=== PATIENT | female | born 1965 | race African-American/Black ===

== ENCOUNTER 2017-11-18 15:27 | Emergency (ER) | payer MEDICAID ==
[2014-10-05 15:43] VITALS: BMI 23.6
[~2017-11-18 15:27] MED LIST: BAYER CHEWABLE81 MG PO; DEXILANT60 MG PO; HYDROCODON-ACE1 EAC7 PO; NORVASC5 MG PO
[2017-11-18 15:58] LABS: BASOPHILS 0.1 % (0-2); EOSINOPHILS 1.3 % (0-7); HEMATOCRIT 43.2 % (36.0-48.0); HEMOGLOBIN 14.8 g/dL (12-16); IMMATURE GRANULOCYTES 0.3 % (0-5); LYMPHOCYTES 23.1 % (15-50); MCHC 34.3 g/dL (31.0-37.0); MCV 105.1 fL (80.0-100.0); MEAN PLATELET VOLUME 10.2 fL (7.4-10.4); MONOCYTES 6.5 % (2-11); NEUTROPHILS 68.7 % (40-80); PLATELET COUNT 236 10x3/uL (130-400); RBC 4.11 10x6/uL (4.00-5.40); RDW 13.1 % (11.5-14.5); WBC 7.9 10x3/uL (4.8-10.8)
[2017-11-18 16:22] LABS: APPEARANCE CLEAR (CLEAR); COLOR YELLOW (YELLOW)
[2017-11-18 16:23] LABS: BILIRUBIN NEGATIVE (NEGATIVE); GLUCOSE NEGATIVE (NEGATIVE); KETONE SMALL mg/dL (NEGATIVE); NITRITE NEGATIVE (NEGATIVE); PROTEIN NEGATIVE (NEGATIVE); UROBILINOGEN NORMAL (NORMAL)
[2017-11-18 16:24] LABS: ALBUMIN 3.7 g/dL (3.4-5.0); ALKALINE PHOSPHATASE 90 U/L (46-116); ALT (SGPT) 525 U/L (10-68); AMYLASE - SERUM 104 U/L (25-115); BILIRUBIN - TOTAL 0.93 mg/dL (0.2-1.3); CALC OSMOLALITY 281 mosm/kg (275-300); CARBON DIOXIDE 24.1 mmol/L (21.0-32.0); CHLORIDE - SERUM 103 mmol/L (98-107); CREATININE - SERUM 0.7 mg/dL (0.6-1.3); GLUCOSE 92 mg/dL (74-106); LIPASE 153 U/L (73-393); POTASSIUM - SERUM 3.8 mmol/L (3.5-5.1); PROTEIN - SERUM 8.5 g/dL (6.4-8.2); SODIUM 142 mmol/L (136-145); UREA NITROGEN 11 mg/dL (7-18); eGFR NON AFRICAN AMERICAN > 90 mL/min (90-120)
== END 2017-11-18 19:45 | disposition home or self-care (01) ==
LOC: D.ER 15:27
PROVIDERS: Family Medicine
DX: R10.84 Generalized abdominal pain (principal); R11.2 Nausea with vomiting, unspecified; Z85.028 Personal history of other malignant neoplasm of stomach

== ENCOUNTER 2018-01-19 21:04 | Emergency (ER) | payer MEDICAID ==
[2014-10-05 15:43] VITALS: BMI 23.6
[2018-01-19 23:29] LABS: HEMATOCRIT 38.2 % (36.0-48.0); HEMOGLOBIN 13.6 g/dL (12-16); LYMPHOCYTES 45.2 % (15-50); MCH 35.8 pg (26.0-34.0); MCHC 35.6 g/dL (31.0-37.0); MCV 100.5 fL (80.0-100.0); MEAN PLATELET VOLUME 9.5 fL (7.4-10.4); NEUTROPHILS 45.3 % (40-80); PLATELET COUNT 255 10x3/uL (130-400); RDW 12.6 % (11.5-14.5); WBC 5.4 10x3/uL (4.8-10.8)
[2018-01-19 23:38] LABS: INR 0.88 (0.85-1.17); PROTIME 11.6 SECONDS (11.6-15.0)
[2018-01-19 23:43] LABS: ALBUMIN 2.9 g/dL (3.4-5.0); ALKALINE PHOSPHATASE 82 U/L (46-116); ALT (SGPT) 58 U/L (10-68); AMYLASE - SERUM 75 U/L (25-115); BILIRUBIN - TOTAL 0.39 mg/dL (0.2-1.3); CALC OSMOLALITY 283 mosm/kg (275-300); CALCIUM 8.5 mg/dL (8.5-10.1); CARBON DIOXIDE 24.8 mmol/L (21.0-32.0); CHLORIDE - SERUM 106 mmol/L (98-107); CREATININE - SERUM 0.6 mg/dL (0.6-1.3); GLUCOSE 99 mg/dL (74-106); LIPASE 125 U/L (73-393); POTASSIUM - SERUM 4.3 mmol/L (3.5-5.1); PROTEIN - SERUM 6.7 g/dL (6.4-8.2); SODIUM 143 mmol/L (136-145); UREA NITROGEN 9 mg/dL (7-18); eGFR NON AFRICAN AMERICAN > 90 mL/min (90-120)
== END 2018-01-20 02:08 | disposition home or self-care (01) ==
LOC: D.ER 21:04
PROVIDERS: Family Medicine
DX: S30.1XXA Contusion of abdominal wall, initial encounter (principal); Y04.2XXA Assault by strike against or bumped into by another person, initial encounter; Y93.89 Activity, other specified; Y92.830 Public park as the place of occurrence of the external cause

== ENCOUNTER 2018-11-11 23:48 | Inpatient (IN) | payer MEDICAID ==
[~2018-11-11] VITALS: Ht 142.2 cm; Wt 52.2 kg
[2018-11-12 00:40] LABS: BASOPHILS 0.4 % (0-2); EOSINOPHILS 0.2 % (0-7); HEMATOCRIT 40.5 % (36.0-48.0); HEMOGLOBIN 13.9 g/dL (12-16); IMMATURE GRANULOCYTES 0.4 % (0-5); LYMPHOCYTES 21.8 % (15-50); MCH 36.2 pg (26.0-34.0); MCHC 34.3 g/dL (31.0-37.0); MCV 105.5 fL (80.0-100.0); MEAN PLATELET VOLUME 10.1 fL (7.4-10.4); MONOCYTES 9.9 % (2-11); NEUTROPHILS 67.3 % (40-80); PLATELET COUNT 235 10x3/uL (130-400); RBC 3.84 10x6/uL (4.00-5.40); RDW 12.6 % (11.5-14.5); WBC 5.3 10x3/uL (4.8-10.8)
[2018-11-12 01:04] LABS: APPEARANCE CLEAR (CLEAR); BILIRUBIN NEGATIVE (NEGATIVE); COLOR DK YELLOW (YELLOW); GLUCOSE NEGATIVE (NEGATIVE); KETONE NEGATIVE (NEGATIVE); NITRITE NEGATIVE (NEGATIVE); PROTEIN NEGATIVE (NEGATIVE)
[2018-11-12 01:18] LABS: ALKALINE PHOSPHATASE 148 U/L (46-116); ALT (SGPT) 302 U/L (10-68); AMYLASE - SERUM 195 U/L (25-115); BILIRUBIN - TOTAL 0.47 mg/dL (0.2-1.3); CALC OSMOLALITY 279 mosm/kg (275-300); CALCIUM 8.4 mg/dL (8.5-10.1); CARBON DIOXIDE 23.7 mmol/L (21.0-32.0); CHLORIDE - SERUM 104 mmol/L (98-107); CREATININE - SERUM 0.6 mg/dL (0.6-1.3); GLUCOSE 126 mg/dL (74-106); LIPASE 2135 U/L (73-393); POTASSIUM - SERUM 3.7 mmol/L (3.5-5.1); PROTEIN - SERUM 7.3 g/dL (6.4-8.2); SODIUM 140 mmol/L (136-145); UREA NITROGEN 9 mg/dL (7-18); eGFR NON AFRICAN AMERICAN > 90 mL/min (90-120)
--- NOTE | 2018-11-12 02:33 | NUR ---
REC'D FROM ER DEPT PER WC TO ROOM 2218 A 52 Y/O BLACK FEMALE PER SERVICES DR. SAENZ.DX ABDOMINAL PAIN/PANCREATITIS. NKDA. IV PATENT RT AC OF NS AT 200CC'S/HR. UP AD SERGEI VOIDS IN BR. ALERT ORIENTED X3 HX ETOH ABUSE/HYPERTENSION.
[2018-11-12 03:01] VITALS: BP 165/104; BMI 25.8
[2018-11-12 03:46] VITALS: BP 165/104
--- NOTE | 2018-11-12 07:30 | NUR ---
PT REPORT RECIEVED AND CARE ASSUMED CALL LIGHT IN REACH PT IS AWAKE AND ALERT ORIENTED X 3 LUNGS CLEAR. BSA X 4 QUADS HAS ABDOMINAL PAIN PIV PATENT TO NS PER ORDER UP AD SERGEI
[2018-11-12 10:08] VITALS: BP 105/94
[2018-11-12 10:53] VITALS: Ht 142.2 cm; Wt 52.2 kg
--- NOTE | 2018-11-12 11:30 | NUR ---
PT CO PAIN GIVEN MORPHINE PER ORDER FOR PAIN CONTROL.
[2018-11-12 13:37] VITALS: BP 147/88
--- NOTE | 2018-11-12 15:56 | MORECARE ---
CASE MANAGEMENT DISCHARGE SUMMARY PATIENT: DIAMOND VALLE UNIT: [id number] ADM DATE: 11/12/18 AGE: 52 : 61 SEX: F ROOM/BED: D.2218 AUTHOR: MARC,DOC PHYSICIAN: REFERRING PHYSICIAN: LELAND SAENZ MD DATE OF SERVICE: 11/12/18 Discharge Plan Patient Name: DIAMOND VALLE Facility: [facility]:[place] : 1965 Planned Disposition: Home Anticipated Discharge Date: Discharge Date: Expected LOS: Initial Reviewer: [email or web address] Initial Review Date: 11/12/2018 Generated: 11/12/18 4:56 pm Comments DCP- Discharge Planning Updated by [email or web address]: Susi Leo on 11/12/18 2:[address] Patient Name: DIAMOND VALLE Admission Status: ER Accout number: [id number] Admission Date: 11-12-2018 : 1965 Admission Diagnosis: Attending: LELAND SAENZ Current LOS: 1 Anticipated DC Date: Planned Disposition: Home Primary Insurance: MEDICAID [place] Discharge Planning Comments: CM met with patient to complete initial dc planning assessment. CM educated patient on the CM role and verbal consent given by patient to complete assessment. Patient lives at home with her boyfriend and son. At discharge patient plans to return home and feels this is a safe discharge. CM discussed availability of home health, rehab services, and medical equipment. Patient denied known discharge needs at this time. CM will continue to follow and will assist as needed with dc plans/needs. Tar Distributor Operator: Susi Leo DCPIA - Discharge Planning Initial Assessment Updated by [email or web address]: Susi Leo on 11/12/18 3:52 pm * Is the patient Alert and Oriented? Yes * How many steps to enter\exit or inside your home? * PCP CAN'T REMEMBER * Pharmacy [facility] * Preadmission Environment Home with Family * ADLs Independent * Equipment None * List name and contact numbers for known caregivers / representatives who currently or will assist patient after discharge: VARUN [phone] * Verbal permission to speak to the caregivers and representatives has been obtained from the patient. Yes * Community resources currently utilized None * Additional services required to return to the preadmission environment? No * Can the patient safely return to the preadmission environment? Yes * Has this patient been hospitalized within the prior 30 days at any hospital? No Patient Name: DIAMOND VALLE Page 11776 at 1556 All edits/amendments must be made on the electronic document DICTATION DATE: 11/12/181555 TRANSITION SPECIALIST: KATHY 11/12/181555 RPT#: [id number] DC DATE: STATUS: ADM IN [facility] [address] [place] [address] END OF REPORT
[2018-11-12 17:26] VITALS: BP 155/85
--- NOTE | 2018-11-12 18:10 | NUR ---
PT HAD MORPHINE FOR PAIN CONTROL HAS BEEN EFFECITVE AT THIS TIME
--- NOTE | 2018-11-12 19:00 | NUR ---
REPORT RECEIVED AND CARE OF PT ASSUMED. PT AMBULATING IN THE [facility] AT THIS TIME. IV IN RIGHT AC PATENT WITH MVI INFUSING. WILL MONITOR FOR NEEDS.
[2018-11-12 20:37] VITALS: BP 159/85
--- NOTE | 2018-11-12 20:50 | NUR ---
HS MEDICATIONS GIVEN. WILL CONTINUE TO MONITOR FOR NEEDS.
--- NOTE | 2018-11-12 21:49 | NUR ---
GAVE MORPHINE IVP PER REQUEST FOR PAIN. WILL MONITOR FOR EFFECTIVENESS.
[2018-11-13 03:52] LABS: BASOPHILS 0.6 % (0-2); EOSINOPHILS 2.7 % (0-7); HEMATOCRIT 38.6 % (36.0-48.0); HEMOGLOBIN 13.2 g/dL (12-16); LYMPHOCYTES 25.5 % (15-50); MCH 36.1 pg (26.0-34.0); MCHC 34.2 g/dL (31.0-37.0); MCV 105.5 fL (80.0-100.0); MEAN PLATELET VOLUME 10.4 fL (7.4-10.4); MONOCYTES 9.1 % (2-11); NEUTROPHILS 62.1 % (40-80); PLATELET COUNT 199 10x3/uL (130-400); RBC 3.66 10x6/uL (4.00-5.40); RDW 12.7 % (11.5-14.5); WBC 4.8 10x3/uL (4.8-10.8)
[2018-11-13 04:06] LABS: ALBUMIN 2.7 g/dL (3.4-5.0); ALKALINE PHOSPHATASE 131 U/L (46-116); BILIRUBIN - TOTAL 1.15 mg/dL (0.2-1.3); CALCIUM 8.2 mg/dL (8.5-10.1); CARBON DIOXIDE 27.1 mmol/L (21.0-32.0); CHLORIDE - SERUM 105 mmol/L (98-107); CREATININE - SERUM 0.6 mg/dL (0.6-1.3); GLUCOSE 79 mg/dL (74-106); LIPASE 468 U/L (73-393); POTASSIUM - SERUM 3.6 mmol/L (3.5-5.1); PROTEIN - SERUM 6.6 g/dL (6.4-8.2); SODIUM 141 mmol/L (136-145); eGFR NON AFRICAN AMERICAN > 90 mL/min (90-120)
[2018-11-13 04:07] LABS: ALT (SGPT) 202 U/L (10-68); AMYLASE - SERUM 110 U/L (25-115); CALC OSMOLALITY 276 mosm/kg (275-300); UREA NITROGEN 5 mg/dL (7-18)
[2018-11-13 05:33] VITALS: BP 152/90
--- NOTE | 2018-11-13 08:45 | NUR ---
PATIENT IN BED WITH NO COMPLAINTS OR SIGNS OF DISTRESS. IV INTACT. CALL LIGHT WITHIN REACH.
--- NOTE | 2018-11-13 08:51 | NUR ---
PATIENT SITTING UP IN BED WITH IV INTACT. WANTS TO TALK TO PHYSICIAN BC READY FOR DC. TOLERATED CLEARS WITH NO PROBLEMS. CALL LIGHT WITHIN REACH.
[2018-11-13 08:54] VITALS: BP 146/92
[2018-11-13] MEDS ORDERED: FOLIC ACID1 MG PO (11:59)
[2018-11-13] MEDS ORDERED: VITAMIN B-1100 M1 PO (11:59)
[2018-11-13] MEDS ORDERED: ULTRAM50 MG PO ×2 (12:00→12:19)
[2018-11-13 12:11] VITALS: BP 148/94
--- NOTE | 2018-11-13 13:05 | MORECARE ---
CASE MANAGEMENT DISCHARGE SUMMARY PATIENT: DIAMOND VALLE UNIT: [id number] ADM DATE: 11/12/18 AGE: 52 : 61 SEX: F ROOM/BED: D.2218 AUTHOR: JOSUE TRAN PHYSICIAN: REFERRING PHYSICIAN: LELAND SAENZ MD DATE OF SERVICE: 11/13/18 Discharge Plan Patient Name: DIAMOND VALLE Facility: [facility]:[place] : 1965 Planned Disposition: Home Anticipated Discharge Date: Discharge Date: Expected LOS: Initial Reviewer: [email or web address] Initial Review Date: 11/12/2018 Generated: 11/13/18 2:05 pm Comments DCP- Discharge Planning Updated by [email or web address]: Susi Leo on 11/13/18 12:[address] Patient Name: DIAMOND VALLE Encounter No: [id number] : 1965 Primary Insurance: MEDICAID [place] Anticipated DC Date: Planned Disposition: Home External Planned Provider: : DCP follow-up note: Patient and family in agreement with discharge plan. No changes to plan. Eulalia DOAN spoke with patient about pancreatitis and education on alcohol consumption, reading information about the dx was also given to patient. Case management will follow and assist as needed. Susi Leo DCP- Discharge Planning Updated by [email or web address]: Susi Leo on 11/12/18 2:[address] Patient Name: DIAMOND VALLE Admission Status: ER Accout number: [id number] Admission Date: 11-12-2018 : 1965 Admission Diagnosis: Attending: LELAND SAENZ Current LOS: 1 Anticipated DC Date: Planned Disposition: Home Primary Insurance: MEDICAID [place] Discharge Planning Comments: CM met with patient to complete initial dc planning assessment. CM educated patient on the CM role and verbal consent given by patient to complete assessment. Patient lives at home with her boyfriend and son. At discharge patient plans to return home and feels this is a safe discharge. CM discussed availability of home health, rehab services, and medical equipment. Patient denied known discharge needs at this time. CM will continue to follow and will assist as needed with dc plans/needs. Ostomy Nurse: Susi Leo DCPIA - Discharge Planning Initial Assessment Updated by [email or web address]: Susi Leo on 11/12/18 3:52 pm * Is the patient Alert and Oriented? Yes * How many steps to enter\exit or inside your home? * PCP CAN'T REMEMBER * Pharmacy [facility] * Preadmission Environment Home with Family * ADLs Independent * Equipment None * List name and contact numbers for known caregivers / representatives who currently or will assist patient after discharge: VARUN [phone] * Verbal permission to speak to the caregivers and representatives has been obtained from the patient. Yes * Community resources currently utilized None * Additional services required to return to the preadmission environment? No * Can the patient safely return to the preadmission environment? Yes * Has this patient been hospitalized within the prior 30 days at any hospital? No Last DP export: 11/12/18 2:56 p Patient Name: DIAMOND VALLE Page 90512 at 1305 All edits/amendments must be made on the electronic document DICTATION DATE: 11/13/18 1304 CARTRIDGE MAKER: KATHY 11/13/18 1304 RPT#: [id number] DC DATE: STATUS: ADM IN [facility] [address] [place] [address] END OF REPORT
--- NOTE | 2018-11-13 13:37 | NUR ---
PATIENT RECIEVED ZOFRAN IVP SLOWLY OVER 2 MINUTES A TTHIS TIME. IV REMOVED WITH CATH TIP INTACT. PATIENT BEING DC'D. PATIENT STATED SHE WANTED TO HAVE NAUSEA MEDS ON DC. PAGED ANAI DOAN AT THIS TIME.
[2018-11-13] MEDS ORDERED: ZOFRAN ODT4 MG/UDTAB PO (13:48)
--- NOTE | 2018-11-13 14:00 | NUR ---
SPOKE WITH ANAI ABOUT NAUSEA MEDS. ORDERS RECIEVED. PATIENT RECIEVED DC INSTRUCTIONS. VERBALIZED UNDERSTANDING. NO QUESTIONS AT THIS TIME. TRAMADOL PRESCRIPTION GIVEN TO PATIENT. AWAITING TRANSPORTATION FOR DC.
--- NOTE | 2018-11-13 14:30 | NUR ---
PATIENT ESCORTED OUT OF HOSPITAL VIA WC WITH PERSONAL BELONGINGS TO PRIVATE VEHICLE BY HOSPITAL VOLUNTEER.
--- NOTE | 2018-11-13 16:43 | MORECARE ---
CASE MANAGEMENT DISCHARGE SUMMARY PATIENT: DIAMOND VALLE UNIT: [id number] ADM DATE: 11/12/18 AGE: 52 : 61 SEX: F ROOM/BED: D.2218 AUTHOR: JOSUE TRAN PHYSICIAN: REFERRING PHYSICIAN: LELAND SAENZ MD DATE OF SERVICE: 11/13/18 Discharge Plan Patient Name: DIAMOND VALLE Facility: [facility]:[place] : 1965 Planned Disposition: Home Anticipated Discharge Date: Discharge Date: 11/13/2018 Expected LOS: 0 Initial Reviewer: [email or web address] Initial Review Date: 11/12/2018 Generated: 11/13/18 5:43 pm Comments DCP- Discharge Planning Updated by [email or web address]: Susi Leo on 11/13/18 12:[address] Patient Name: DIAMOND VALLE Encounter No: [id number] : 1965 Primary Insurance: MEDICAID [place] Anticipated DC Date: Planned Disposition: Home External Planned Provider: : DCP follow-up note: Patient and family in agreement with discharge plan. No changes to plan. Eulalia DOAN spoke with patient about pancreatitis and education on alcohol consumption, reading information about the dx was also given to patient. Case management will follow and assist as needed. Susi Leo DCP- Discharge Planning Updated by [id number]: Susi eLo on 11/12/18 2:[address] Patient Name: DIAMOND VALLE Admission Status: ER Accout number: [id number] Admission Date: 11-12-2018 : 1965 Admission Diagnosis: Attending: LELAND SAENZ Current LOS: 1 Anticipated DC Date: Planned Disposition: Home Primary Insurance: MEDICAID [place] Discharge Planning Comments: CM met with patient to complete initial dc planning assessment. CM educated patient on the CM role and verbal consent given by patient to complete assessment. Patient lives at home with her boyfriend and son. At discharge patient plans to return home and feels this is a safe discharge. CM discussed availability of home health, rehab services, and medical equipment. Patient denied known discharge needs at this time. CM will continue to follow and will assist as needed with dc plans/needs. Multi Share Program Coordinator: Susi Leo DCPIA - Discharge Planning Initial Assessment Updated by [email or web address]: Susi Leo on 11/12/18 3:52 pm * Is the patient Alert and Oriented? Yes * How many steps to enter\exit or inside your home? * PCP CAN'T REMEMBER * Pharmacy [facility] * Preadmission Environment Home with Family * ADLs Independent * Equipment None * List name and contact numbers for known caregivers / representatives who currently or will assist patient after discharge: VARUN [phone] * Verbal permission to speak to the caregivers and representatives has been obtained from the patient. Yes * Community resources currently utilized None * Additional services required to return to the preadmission environment? No * Can the patient safely return to the preadmission environment? Yes * Has this patient been hospitalized within the prior 30 days at any hospital? No Last DP export: 11/13/18 12:05 p Patient Name: DIAMOND VALLE Page 31603 at 1643 All edits/amendments must be made on the electronic document DICTATION DATE: 11/13/181642 FITTER TACKER: KATHY 11/13/181642 RPT#: [id number] DC DATE:11/13/18 STATUS: DIS IN [facility] [address] [place] [address] END OF REPORT
== END 2018-11-13 14:55 | disposition home or self-care (01) | DRG 439 ==
LOC: D.ER 23:48 → D.MS 11-12 01:24
PROVIDERS: Emergency Medicine; Family Medicine; ADMIT Family Medicine; ATTEND Family Medicine
DX: K85.80 Other acute pancreatitis without necrosis or infection (principal); R64 Cachexia; R11.2 Nausea with vomiting, unspecified; I10 Essential (primary) hypertension; K76.89 Other specified diseases of liver

== ENCOUNTER 2019-01-18 13:47 | Emergency (ER) | payer MEDICAID ==
[~2019-01-18] VITALS: Ht 142.2 cm; Wt 47.7 kg
[~2019-01-18 13:47] MED LIST changes: +FOLIC ACID1 MG PO; +ULTRAM50 MG PO; +VITAMIN B-1100 M1 PO; +ZOFRAN ODT4 MG/UDTAB PO
[2019-01-18 14:04] VITALS: Ht 142.2 cm; Wt 47.7 kg
[2019-01-18] MEDS ORDERED: NORVASC10 MG PO (14:08)
[2019-01-18] MEDS ORDERED: TORADOL10 MG PO (18:23)
[2019-01-18 18:39] VITALS: BP 124/80
== END 2019-01-18 18:40 | disposition home or self-care (01) ==
LOC: D.ER 13:47
DX: S52.102A Unspecified fracture of upper end of left radius, initial encounter for closed fracture (principal); W01.0XXA Fall on same level from slipping, tripping and stumbling without subsequent striking against object, initial encounter; Y93.E5 Activity, floor mopping and cleaning; Y92.018 Other place in single-family (private) house as the place of occurrence of the external cause

== ENCOUNTER → 2019-04-22 07:53 | Outpatient (CLI) | payer MEDICARE, MEDICAID ==
[2019-01-18 14:04] VITALS: BMI 23.6
[~2019-04-22 07:53] MED LIST changes: +NORVASC10 MG PO; +TORADOL10 MG PO
== END | disposition home or self-care (01) ==
LOC: D.US 04-20 09:00
PROVIDERS: ATTEND Nurse Practitioner Family
DX: R94.5 Abnormal results of liver function studies (principal)

== ENCOUNTER 2019-07-27 14:23 | Emergency (ER) | payer MEDICARE, MEDICAID ==
[2019-01-18 14:04] VITALS: BMI 23.6
== END 2019-07-27 16:02 | disposition left against medical advice (07) ==
LOC: D.ER 14:23
DX: R07.81 Pleurodynia (principal)

== ENCOUNTER 2019-10-29 06:55 | Inpatient (IN) | payer MEDICARE, MEDICAID ==
[~2019-10-29] VITALS: Ht 142.2 cm; Wt 58.6 kg
[~2019-10-29 06:55] MED LIST changes: +NORCO-7.51 TAB PO
[2019-10-29 07:39] LABS: BASOPHILS 0.3 % (0-2); EOSINOPHILS 0.9 % (0-7); HEMOGLOBIN 12.6 g/dL (12-16); IMMATURE GRANULOCYTES 0.2 % (0-5); LYMPHOCYTES 28.8 % (15-50); MCHC 33.2 g/dL (31.0-37.0); MCV 105.6 fL (80.0-100.0); MEAN PLATELET VOLUME 9.1 fL (7.4-10.4); MONOCYTES 13.8 % (2-11); PLATELET COUNT 368 10x3/uL (130-400); RDW 12.7 % (11.5-14.5); WBC 6.5 10x3/uL (4.8-10.8)
--- NOTE | 2019-10-29 07:52 | NUR ---
URINE TO LAB
[2019-10-29 07:55] LABS: CALC OSMOLALITY 277 mosm/kg (275-300); CALCIUM 8.9 mg/dL (8.5-10.1); CARBON DIOXIDE 27.1 mmol/L (21.0-32.0); CHLORIDE - SERUM 103 mmol/L (98-107); CREATININE - SERUM 0.5 mg/dL (0.6-1.3); GLUCOSE 110 mg/dL (74-106); POTASSIUM - SERUM 3.9 mmol/L (3.5-5.1); SODIUM 139 mmol/L (136-145); UREA NITROGEN 10 mg/dL (7-18); eGFR NON AFRICAN AMERICAN > 90 mL/min (90-120)
[2019-10-29 08:04] LABS: ALBUMIN 2.6 g/dL (3.4-5.0); ALKALINE PHOSPHATASE 106 U/L (30-120); ALT (SGPT) 26 U/L (10-68); AMYLASE - SERUM 40 U/L (25-115); BILIRUBIN - TOTAL 0.69 mg/dL (0.2-1.3); LIPASE 58 U/L (73-393); PROTEIN - SERUM 7.2 g/dL (6.4-8.2)
[2019-10-29 08:04] LABS: BILIRUBIN NEGATIVE (NEGATIVE); GLUCOSE NEGATIVE (NEGATIVE); KETONE NEGATIVE (NEGATIVE); NITRITE NEGATIVE (NEGATIVE); SPECIFIC GRAVITY 1.015 (1.005-1.020); UROBILINOGEN 8 mg/dL (NORMAL)
[2019-10-29 08:08] LABS: TROPONIN-I < 0.017 ng/mL (0.000-0.060)
[2019-10-29 10:22] VITALS: BP 162/115
[2019-10-29 10:51] VITALS: BP 147/98
[2019-10-29 11:30] VITALS: BP 142/99
--- NOTE | 2019-10-29 12:00 | NUR ---
NS 1000 ML AND LEVAQUIN 750 ML INFUSION COMPLETION
[2019-10-29 15:20] VITALS: BP 147/96; BMI 22.4
--- NOTE | 2019-10-29 15:25 | NUR ---
ASSESSMENNT PER FLOW SHEET. PATIENT IS WITHOUT DISTRESS. PATIENT STATES SHE WANTS FOOD AND WATER.INSTRUCTED PATIENT SHE IS NOT TO EAT OR DRINK.CALL LIGHT PLACED IN REACH.
[2019-10-29 17:03] VITALS: BP 138/92
[2019-10-29 20:00] VITALS: BP 139/90
[2019-10-30 04:00] VITALS: BP 150/90
[2019-10-30 05:38] LABS: BASOPHILS 0.3 % (0-2); EOSINOPHILS 0.7 % (0-7); HEMATOCRIT 34.3 % (36.0-48.0); HEMOGLOBIN 11.3 g/dL (12-16); IMMATURE GRANULOCYTES 0.2 % (0-5); LYMPHOCYTES 19.7 % (15-50); MCH 34.7 pg (26.0-34.0); MCHC 32.9 g/dL (31.0-37.0); MCV 105.2 fL (80.0-100.0); MEAN PLATELET VOLUME 9.2 fL (7.4-10.4); MONOCYTES 12.6 % (2-11); NEUTROPHILS 66.5 % (40-80); PLATELET COUNT 321 10x3/uL (130-400); RBC 3.26 10x6/uL (4.00-5.40); RDW 12.7 % (11.5-14.5); WBC 5.8 10x3/uL (4.8-10.8)
[2019-10-30 06:05] LABS: ALBUMIN 2.3 g/dL (3.4-5.0); ALKALINE PHOSPHATASE 85 U/L (30-120); ALT (SGPT) 21 U/L (10-68); BILIRUBIN - TOTAL 0.85 mg/dL (0.2-1.3); CALC OSMOLALITY 270 mosm/kg (275-300); CALCIUM 8.5 mg/dL (8.5-10.1); CARBON DIOXIDE 25.2 mmol/L (21.0-32.0); CHLORIDE - SERUM 103 mmol/L (98-107); CREATININE - SERUM 0.6 mg/dL (0.6-1.3); GLUCOSE 81 mg/dL (74-106); POTASSIUM - SERUM 3.4 mmol/L (3.5-5.1); PROTEIN - SERUM 7.1 g/dL (6.4-8.2); SODIUM 137 mmol/L (136-145); UREA NITROGEN 6 mg/dL (7-18); eGFR NON AFRICAN AMERICAN > 90 mL/min (90-120)
--- NOTE | 2019-10-30 07:45 | NUR ---
PT SITTING UP IN BED WATCHING TV. RESP EVEN AND UNLABORED. PT REPORTS ABDOMEN PAIN 8/10 AT THIS TIME, QUESTIONS WHEN NEXT DOSE PAIN MED COULD BE ADMINISTERED. DISCUSSED NEXT DOSE DUE WOULD BE 1050. PT VOICES UNDERSTANDING. IV TO LEFT AC WITH NS @125ML/HR INFUSING VIA PUMP. SITE WITHOUT REDNESS OR EDEMA. DENIES FURTHER NEEDS AT THIS TIME. CL WITHIN REACH. ENCOURAGED TO CALL WITH NEEDS. CONTINUE POC
--- NOTE | 2019-10-30 09:50 | NUR ---
PT REQUEST TO SPEAK WITH NURSE. PT VOICES QUESTIONS REGARDING PAIN MEDICATION CONTINUES TO VOICE PAIN 8/ AT THIS TIME. EDUCATED REGARDING NEXT DOSE DUE PER MD ORDERS. PT VOICES UNDERSTANDING AT THIS TIME. DENIES FURTHER NEEDS AT THIS TIME. CL WITHIN REACH. ENCOURAGED TO CALL WITH NEEDS.
--- NOTE | 2019-10-30 10:52 | NUR ---
PT CONTINUES TO VOICE COMPLAINTS OF ABDOMINIAL PAIN 04/03. MORPHINE ADMINISTERED PER MD ORDERS. DENIES FURTHER NEEDS AT THIS TIME. CL WITHIN REACH. ENCOURAGED TO CALL WITH NEEDS.
[2019-10-30 14:37] VITALS: BMI 22.4
[2019-10-30 16:56] VITALS: BP 140/95
[2019-10-30 17:05] VITALS: BP 128/80; BP 148/95
--- NOTE | 2019-10-30 19:00 | NUR ---
BEDSIDE REPORT RECEIVED AND CARE OF PT ASSUMED. PT LYING IN SUPINE POSITION WITH EYES CLOSED. IV TO LEFT AC PATENT WITH NS INFUISNG AT 75 ML/HR. WILL MONITOR FOR NEEDS.
--- NOTE | 2019-10-30 19:20 | NUR ---
MORPHINE IVP GIVEN PER REQUEST, PER PRN ORDER. WILL MONITOR FOR EFFECTIVENESS.
[2019-10-30 19:43] VITALS: BP 156/97
--- NOTE | 2019-10-30 20:16 | NUR ---
HS MEDICATIONS GIVEN. WILL CONTINUE TO MONITOR FOR NEEDS.
[2019-10-31] VITALS: BP 141/93
[2019-10-31 04:00] VITALS: BP 135/95
[2019-10-31 05:05] LABS: BASOPHILS 0.2 % (0-2); EOSINOPHILS 1.4 % (0-7); HEMATOCRIT 37.6 % (36.0-48.0); HEMOGLOBIN 12.9 g/dL (12-16); IMMATURE GRANULOCYTES 0.4 % (0-5); LYMPHOCYTES 17.6 % (15-50); MCH 35.2 pg (26.0-34.0); MCHC 34.3 g/dL (31.0-37.0); MEAN PLATELET VOLUME 9.5 fL (7.4-10.4); MONOCYTES 13.8 % (2-11); NEUTROPHILS 66.6 % (40-80); PLATELET COUNT 385 10x3/uL (130-400); RBC 3.66 10x6/uL (4.00-5.40); RDW 12.3 % (11.5-14.5)
[2019-10-31 05:07] LABS: MCV 102.7 fL (80.0-100.0)
[2019-10-31 05:18] LABS: ALBUMIN 2.6 g/dL (3.4-5.0); ALKALINE PHOSPHATASE 91 U/L (30-120); ALT (SGPT) 23 U/L (10-68); BILIRUBIN - TOTAL 0.82 mg/dL (0.2-1.3); CALC OSMOLALITY 259 mosm/kg (275-300); CALCIUM 9.3 mg/dL (8.5-10.1); CARBON DIOXIDE 26.9 mmol/L (21.0-32.0); CHLORIDE - SERUM 96 mmol/L (98-107); CREATININE - SERUM 0.5 mg/dL (0.6-1.3); GLUCOSE 98 mg/dL (74-106); POTASSIUM - SERUM 3.2 mmol/L (3.5-5.1); PROTEIN - SERUM 7.9 g/dL (6.4-8.2); SODIUM 131 mmol/L (136-145); eGFR NON AFRICAN AMERICAN > 90 mL/min (90-120)
[2019-10-31 05:19] LABS: UREA NITROGEN 4 mg/dL (7-18)
--- NOTE | 2019-10-31 08:25 | NUR ---
PT RESTING IN BED WITH EYES CLOSED. OPENS EYES SPONTANEOUSLY UPON STAFF ENTERING ROOM. RESP EVEN AND UNLABORED. PT VOICES PAIN 10/ AT THIS TIME. DISCUSSED NEXT DOSE DUE OF PAIN MEDICATION PER MD ORDERS. PT VOICES UNDERSTANDING. IV TO LEFT AC WITH NS @ 75ML/HR INFUSING VIA PUMP. SITE WITHOUT REDNESS OR EDEMA. DENIES FURTHER NEEDS AT THIS TIME. CL WITHIN REACH. ENCOURAGED TO CALL WITH NEEDS. CONTINUE POC
[2019-10-31 08:38] VITALS: BP 156/102
[2019-10-31 12:33] VITALS: BP 132/84
--- NOTE | 2019-10-31 17:00 | NUR ---
GOLYTELY PREP BEGAN PER MD ORDERS FOR PROCEDURE 11/01/19. PT VOICES UNDERSTANDING OF NPO STATUS AFTER MIDNIGHT TONIGHT.
[2019-10-31 17:07] VITALS: BP 147/98
[2019-10-31 20:00] VITALS: BP 137/96
--- NOTE | 2019-10-31 23:30 | NUR ---
PT DRINKING GO-LYTELY. HAVING LOOSE BROWN STOOLS. RECEIVED SPECIMEN AND TOOK TO LAB. NO OTHER NEEDS. REMINDED PT OF NPO AT MIDNIGHT AND ENCOURAGE INCREASED DRINKING OF GO-LYTELY. NO OTHER NEEDS. WILL REASSESS AND CONTINUE TO MONITOR.
[2019-11-01] VITALS: BP 130/84
[2019-11-01 04:00] VITALS: BP 140/96
[2019-11-01 05:46] LABS: BASOPHILS 0.2 % (0-2); EOSINOPHILS 1.9 % (0-7); HEMOGLOBIN 12.4 g/dL (12-16); IMMATURE GRANULOCYTES 0.2 % (0-5); LYMPHOCYTES 24.9 % (15-50); MCH 34.3 pg (26.0-34.0); MCHC 33.5 g/dL (31.0-37.0); MCV 102.5 fL (80.0-100.0); MEAN PLATELET VOLUME 9.8 fL (7.4-10.4); MONOCYTES 18.2 % (2-11); NEUTROPHILS 54.6 % (40-80); PLATELET COUNT 392 10x3/uL (130-400); RBC 3.61 10x6/uL (4.00-5.40); RDW 12.6 % (11.5-14.5); WBC 5.2 10x3/uL (4.8-10.8)
[2019-11-01 07:11] LABS: ALBUMIN 2.6 g/dL (3.4-5.0); ALKALINE PHOSPHATASE 89 U/L (30-120); ALT (SGPT) 22 U/L (10-68); BILIRUBIN - TOTAL 0.69 mg/dL (0.2-1.3); CALC OSMOLALITY 267 mosm/kg (275-300); CALCIUM 8.6 mg/dL (8.5-10.1); CARBON DIOXIDE 27.3 mmol/L (21.0-32.0); CHLORIDE - SERUM 101 mmol/L (98-107); CREATININE - SERUM 0.6 mg/dL (0.6-1.3); GLUCOSE 99 mg/dL (74-106); SODIUM 136 mmol/L (136-145); eGFR NON AFRICAN AMERICAN > 90 mL/min (90-120)
[2019-11-01 07:13] LABS: LIPASE 34 U/L (73-393); UREA NITROGEN 2 mg/dL (7-18)
--- NOTE | 2019-11-01 07:30 | NUR ---
SPOKE TO DR. BAIRD STATED PATIENT IS TO DRINK GOLYTLEY UNTIL 0800. TOOK PATIENT A SPRITE TO MIX WITH AND TOLD PATIENT NOT TO DRINK AFTER 0800. VERBALIZED UNDERSTANDING. IV INTACT. CALL LIGHT WITHIN REACH.
[2019-11-01 08:56] VITALS: BP 156/61
--- NOTE | 2019-11-01 10:00 | NUR ---
SPOKE TO SHAWN IN GI LAB. PATIENT STATED SHE DIDNT DRINK AFTER 0800. TOLD SHAWN THAT AND THAT SHE DIDNT DRINK BUT ONLY HALF OF THE GOLYTELY. STATED TO GO AHEAD AND PREOP.
--- NOTE | 2019-11-01 11:04 | NUR ---
PATIENT BACK TO ROOM. STATED THAT SHE HAD DRANK AFTER 0800 AND THAT SHE THOUGHT SHE WAS SUPPOSE TO GO AHEAD AND DRINK TILL 11 OR 12. STATED SHE WAS CONFUSED AND THOUGHT THE DR. HAD TOLD HER THAT. GI TO COME GET PATIENT AGAIN AFTER AN HOUR.
--- NOTE | 2019-11-01 12:59 | MORECARE ---
CASE MANAGEMENT DISCHARGE SUMMARY PATIENT: DIAMOND VALLE UNIT: [id number] ADM DATE: 10/29/19 AGE: 53 : 61 SEX: F ROOM/BED: D.2219 AUTHOR: JOSUE TRAN PHYSICIAN: REFERRING PHYSICIAN: OSITO KEBEDE MD DATE OF SERVICE: 11/01/19 Discharge Plan Patient Name: DIAMOND VALLE [facility] [facility] 1965 Planned Disposition: Anticipated Discharge Date: Discharge Date: Expected LOS: Initial Reviewer: [email or web address] Initial Review Date: 10/29/2019 Generated: 11/01/19 1:59 pm Comments DCP- Discharge Planning Updated by [email or web address]: Susi Leo on 11/01/19 11:[address] ATTEMPTED TO SEE PATIENT FOR INITIAL ASSESSMENT, BUT SHE WAS IN A PROCEDURE WILL TRY AGAIN AT A LATER TIME Patient Name: DIAMOND VALLE Page 89147 at 1259 All edits/amendments must be made on the electronic document DICTATION DATE: 11/01/19 1259 TOOL ENGINEER: KATHY 11/01/19 1259 RPT#: [id number] DC DATE: STATUS: ADM IN [facility] [address] [place] [address] END OF REPORT
--- NOTE | 2019-11-01 13:07 | MORECARE ---
CASE MANAGEMENT DISCHARGE SUMMARY PATIENT: DIAMOND VALLE UNIT: [id number] ADM DATE: 10/29/19 AGE: 53 : 61 SEX: F ROOM/BED: D.2219 AUTHOR: JOSUE TRAN PHYSICIAN: REFERRING PHYSICIAN: OSITO KEBEDE MD DATE OF SERVICE: 11/01/19 Discharge Plan Patient Name: DIAMOND VALLE [facility] : 1965 Planned Disposition: Anticipated Discharge Date: Discharge Date: Expected LOS: Initial Reviewer: [email or web address] Initial Review Date: 10/29/2019 Generated: 11/01/19 2:07 pm Comments DCP- Discharge Planning Updated by [email or web address]: Susi Leo on 11/01/19 11:[address] ATTEMPTED TO SEE PATIENT FOR INITIAL ASSESSMENT, BUT SHE WAS IN A PROCEDURE WILL TRY AGAIN AT A LATER TIME Patient Name: DIAMOND VALLE Page 45122 at 1307 All edits/amendments must be made on the electronic document DICTATION DATE: 11/01/19 1307 AUTOMOTIVE POWER ELECTRONICS ENGINEER: KATHY 11/01/19 1307 RPT#: [id number] DC DATE: STATUS: ADM IN [facility] [address] [place] [address] END OF REPORT
--- NOTE | 2019-11-01 14:14 | NUR ---
PATIENT BACK TO ROOM. UP OUT OF BED GETTING DRESSED. WANTS PAIN MEDS INCREASED. SPOKE WITH KEI. CALL LIGHT WITHIN REACH.
[2019-11-01 17:28] VITALS: BP 144/80
[2019-11-01 18:39] VITALS: Ht 142.2 cm; Wt 58.6 kg
[2019-11-01 20:00] VITALS: BP 133/89
[2019-11-02] VITALS: BP 128/92
[2019-11-02 04:00] VITALS: BP 158/103
[2019-11-02 05:50] LABS: BASOPHILS 0.3 % (0-2); EOSINOPHILS 0.8 % (0-7); HEMATOCRIT 35.4 % (36.0-48.0); HEMOGLOBIN 12.1 g/dL (12-16); IMMATURE GRANULOCYTES 0.3 % (0-5); LYMPHOCYTES 14.7 % (15-50); MCH 34.8 pg (26.0-34.0); MCHC 34.2 g/dL (31.0-37.0); MCV 101.7 fL (80.0-100.0); MEAN PLATELET VOLUME 9.8 fL (7.4-10.4); MONOCYTES 12.9 % (2-11); PLATELET COUNT 389 10x3/uL (130-400); RBC 3.48 10x6/uL (4.00-5.40); RDW 12.4 % (11.5-14.5); WBC 6.1 10x3/uL (4.8-10.8)
[2019-11-02 06:02] LABS: INR 1.07 (0.85-1.17); PROTIME 13.8 SECONDS (11.6-15.0)
[2019-11-02 06:03] LABS: APTT 33.3 SECONDS (22.8-39.4)
[2019-11-02 06:34] LABS: ALBUMIN 2.5 g/dL (3.4-5.0); ALKALINE PHOSPHATASE 86 U/L (30-120); ALT (SGPT) 24 U/L (10-68); BILIRUBIN - TOTAL 0.49 mg/dL (0.2-1.3); CARBON DIOXIDE 27.1 mmol/L (21.0-32.0); CHLORIDE - SERUM 97 mmol/L (98-107); CREATININE - SERUM 0.6 mg/dL (0.6-1.3); GLUCOSE 131 mg/dL (74-106); PROTEIN - SERUM 7.8 g/dL (6.4-8.2); SODIUM 137 mmol/L (136-145); eGFR NON AFRICAN AMERICAN > 90 mL/min (90-120)
[2019-11-02 06:37] LABS: CALC OSMOLALITY 272 mosm/kg (275-300); POTASSIUM - SERUM 3.2 mmol/L (3.5-5.1); UREA NITROGEN 4 mg/dL (7-18)
--- NOTE | 2019-11-02 07:51 | NUR ---
RECIEVED REPORT. PATIENT IS RESTING QUIETLY. DENIES ANY NEEDS AT THIS TIME.
[2019-11-02 10:07] VITALS: BP 132/786
--- NOTE | 2019-11-02 11:46 | NUR ---
Chest xray complete. May need to resite IV.
[2019-11-02 14:39] VITALS: BP 137/94
--- NOTE | 2019-11-02 15:21 | NUR ---
REMOVED IV FROM LEFT AC, HAD BECOME DISLODGED, CATHETER INTACT. NEW IV PLACE IN RIGHT FOREARM , TWO STICKS. PATIENT TOLERATED.
[2019-11-02 17:25] VITALS: BP 131/87
--- NOTE | 2019-11-02 18:49 | NUR ---
PATIENT IS RESTING QUIETLY AT THIS TIME. SHE WILL BE NPO AFTER MIDNIGHT AND IS GOING TO SURGERY TOMORROW. SHE IS AWARE. IV IN RIGHT FOREARM IS INFUSING WELL. DENIES ANY NEEDS AT THIS TIME.
[2019-11-02 21:28] VITALS: BP 109/76
[2019-11-03] VITALS (13 sets, daily range): BP systolic 80–140; BP diastolic 46–93
[2019-11-03 07:25] LABS: BASOPHILS 0.1 % (0-2); EOSINOPHILS 0.9 % (0-7); HEMATOCRIT 35.2 % (36.0-48.0); HEMOGLOBIN 11.9 g/dL (12-16); IMMATURE GRANULOCYTES 0.3 % (0-5); LYMPHOCYTES 10.4 % (15-50); MCH 34.7 pg (26.0-34.0); MCHC 33.8 g/dL (31.0-37.0); MCV 102.6 fL (80.0-100.0); MEAN PLATELET VOLUME 9.3 fL (7.4-10.4); MONOCYTES 14.4 % (2-11); NEUTROPHILS 73.9 % (40-80); PLATELET COUNT 348 10x3/uL (130-400); RBC 3.43 10x6/uL (4.00-5.40); RDW 12.4 % (11.5-14.5)
[2019-11-03 07:41] LABS: WBC 7.8 10x3/uL (4.8-10.8)
[2019-11-03 07:59] LABS: ALBUMIN 2.4 g/dL (3.4-5.0); ALKALINE PHOSPHATASE 78 U/L (30-120); ALT (SGPT) 21 U/L (10-68); BILIRUBIN - TOTAL 0.44 mg/dL (0.2-1.3); CALCIUM 8.9 mg/dL (8.5-10.1); CARBON DIOXIDE 23.9 mmol/L (21.0-32.0); CHLORIDE - SERUM 101 mmol/L (98-107); CREATININE - SERUM 0.5 mg/dL (0.6-1.3); GLUCOSE 106 mg/dL (74-106); POTASSIUM - SERUM 4.3 mmol/L (3.5-5.1); PROTEIN - SERUM 6.8 g/dL (6.4-8.2); SODIUM 134 mmol/L (136-145); eGFR NON AFRICAN AMERICAN > 90 mL/min (90-120)
[2019-11-03 08:01] LABS: CALC OSMOLALITY 265 mosm/kg (275-300); UREA NITROGEN 8 mg/dL (7-18)
--- NOTE | 2019-11-03 14:11 | NUR ---
PREOP MEDS GIVEN PER ORDER.
--- NOTE | 2019-11-03 14:14 | NUR ---
RESTING IN BED. DENIES NEEDS. WILL CONTINUE TO MONITOR.
--- NOTE | 2019-11-03 14:33 | NUR ---
NUTRITION F/U PT CURRENTLY NPO FOR SURGERY. RECEIVING CLINIMX PPN AT 75 CC/HR. WILL CONTINUE TO MONITOR PT PROGRESS. PROVIDE DIET WHEN ADVANCED. RD FOLLOWING
[2019-11-03 17:51] LABS: HEMATOCRIT 31.7 % (36.0-48.0); HEMOGLOBIN 10.4 g/dL (12-16)
[2019-11-03 18:36] LABS: HEMOGLOBIN 9.5 g/dL (12-16)
--- NOTE | 2019-11-03 19:47 | NUR ---
1924 - PT BROUGHT TO ICU INTUBATED, ACCOMPANIED BY RUBEN BARRIOS RN AND STEWART MARROQUIN CRNA. NO STAFF AVAILABLE TO RECIEVE PT, RT SETUP AND CONNECTED VENTILATOR. RUBEN BARRIOS TO RECOVER PT IN ICU PENDING RN AVAILABLE TO TAKE REPORT.
--- NOTE | 2019-11-03 19:58 | NUR ---
DR BOATENG AT BEDSIDE
--- NOTE | 2019-11-03 21:11 | NUR ---
2028 - PT MOVED FROM 2309 TO 2302 PER ICU CHARGE NURSE. ICU STAFF FULLY AVAILABLE, RECOVERY COMPLETE.
[2019-11-03 21:18] LABS: APTT 31.7 SECONDS (22.8-39.4); INR 1.25 (0.85-1.17); PROTIME 15.6 SECONDS (11.6-15.0)
[2019-11-03 21:44] LABS: HEMATOCRIT 29.6 % (36.0-48.0)
[2019-11-03 22:58] LABS: CARBON DIOXIDE 26.9 mmol/L (21.0-32.0); CHLORIDE - SERUM 110 mmol/L (98-107); CREATININE - SERUM 0.6 mg/dL (0.6-1.3); SODIUM 142 mmol/L (136-145); UREA NITROGEN 9 mg/dL (7-18); eGFR NON AFRICAN AMERICAN > 90 mL/min (90-120)
[2019-11-03 23:08] LABS: CALC OSMOLALITY 286 mosm/kg (275-300); GLUCOSE 192 mg/dL (74-106); POTASSIUM - SERUM 3.4 mmol/L (3.5-5.1)
[2019-11-03 23:09] LABS: CALCIUM 6.8 mg/dL (8.5-10.1)
[2019-11-04] VITALS (77 sets, daily range): BP systolic 72–127; BP diastolic 30–99
[2019-11-04 02:12] LABS: HEMATOCRIT 27.8 % (36.0-48.0); HEMOGLOBIN 9.5 g/dL (12-16)
[2019-11-04 07:28] LABS: ALKALINE PHOSPHATASE 37 U/L (30-120); ALT (SGPT) 23 U/L (10-68); BILIRUBIN - TOTAL 0.65 mg/dL (0.2-1.3); CALCIUM 7.1 mg/dL (8.5-10.1); CARBON DIOXIDE 25.9 mmol/L (21.0-32.0); CHLORIDE - SERUM 111 mmol/L (98-107); GLUCOSE 145 mg/dL (74-106); SODIUM 141 mmol/L (136-145)
[2019-11-04 07:39] LABS: BASOPHILS 0.1 % (0-2); EOSINOPHILS 0 % (0-7); HEMATOCRIT 27.4 % (36.0-48.0); HEMOGLOBIN 9.4 g/dL (12-16); IMMATURE GRANULOCYTES 0.4 % (0-5); LYMPHOCYTES 13.8 % (15-50); MCH 31.2 pg (26.0-34.0); MCHC 34.3 g/dL (31.0-37.0); MEAN PLATELET VOLUME 10.1 fL (7.4-10.4); NEUTROPHILS 70.7 % (40-80); RBC 3.01 10x6/uL (4.00-5.40); RDW 17.4 % (11.5-14.5)
[2019-11-04 07:45] LABS: PLATELET COUNT 235 10x3/uL (130-400); WBC 13.2 10x3/uL (4.8-10.8)
[2019-11-04 07:49] LABS: ALBUMIN 1.5 g/dL (3.4-5.0); CALC OSMOLALITY 283 mosm/kg (275-300); CREATININE - SERUM 0.8 mg/dL (0.6-1.3); POTASSIUM - SERUM 5.1 mmol/L (3.5-5.1); PROTEIN - SERUM 4.2 g/dL (6.4-8.2); UREA NITROGEN 13 mg/dL (7-18); eGFR NON AFRICAN AMERICAN 79 mL/min (90-120)
--- NOTE | 2019-11-04 08:00 | NUR ---
DR BOATENG HERE SPEAKING TO FAMILY. INSTRUCT PROGNOSIS POOR.
--- NOTE | 2019-11-04 08:13 | OP ---
PATIENT NAME: DIAMOND VALLE MEDICAL RECORD: [id number] :[birth year] LOCATION:[facility] D.2302 ADMISSION DATE:10/29/19 SURGEON: TORI PATTERSON MD DATE OF OPERATION: 11/03/2019 SURGEON: Tori Patterson MD PREOPERATIVE DIAGNOSIS: Left colon adenocarcinoma. POSTOPERATIVE DIAGNOSIS: A grossly metastatic adenocarcinoma involving the transverse colon, gastrojejunostomy, liver, anterior abdominal wall with multiple peritoneal implants. PROCEDURE PERFORMED: Laparotomy, lysis of adhesions, en bloc resection, transverse colon with resection of gastrojejunostomy, splenectomy, mobilization of the splenic flexure and negative pressure application of open abdominal ABThera, and negative pressure wound VAC. ESTIMATED BLOOD LOSS: 3 liters. Case was grossly contaminated. OPERATIVE COURSE: After consent was obtained, the patient was taken to the operating room and placed in supine position on the operating table. Next, general anesthesia was given via endotracheal intubation. A timeout was performed to confirm the correct patient and procedure. Abdomen was prepped and draped in typical sterile fashion and Ioban dressing was placed. The previous midline incision was opened using a 10-blade scalpel. Dissection continued through the subcutaneous tissue with electrocautery. The fascia was incised. The peritoneum was grasped with Dee clamps and incised. Remaining portion of the midline incision was opened using electrocautery. Lysis of adhesions was performed. Gentle lysis of adhesions performed during this process from the anterior abdominal wall until there was densely adherent small bowel on the midline upper abdominal wall and left upper quadrant abdominal wall. There was dense adhesions of the liver. There was gross palpable disease noted in the left lobe of the liver. the transverse colon, the gastrojejunostomy, the mesentery of the transverse colon, multiple small enterotomies. PROCEDURE PERFORMED: Small bowel resection times 2. Sharp scissor dissection was attempted to free up the small bowel from the anterior abdominal wall. Using electrocautery, we had to resect portions of the anterior abdominal wall to free up the bowel from the anterior abdominal wall. The tumor was grossly invading into the peritoneum and the posterior abdominal wall. This was performed with electrocautery. Once all the bowel was freed, multiple full thickness small bowel injuries were noted. Extensive lysis of adhesions was performed. Two small bowel resections were performed using the CHELSEY linear cutting stapler in a fygv-ie-ictk anastomosis. The patient had a previous subtotal gastrectomy for gastric cancer with a Kayden-en-Y gastrojejunostomy reconstruction. The gastrojejunostomy was grossly involved in the tumor. The Kayden limb of the small bowel was involved in the transverse colon mass. The entire transverse colon was grossly involved with disease as well as the transverse colon mesentery grossly involved. At this time, the splenic flexure was mobilized. The left colon was dissected. The white line of Toldt was taken down using electrocautery. The left colon was resected using a GI stapler at the rectosigmoid junction. The mesentery was taken to the level of the splenic flexure using the Harmonic scalpel. In an effort to mobilize the gastrojejunostomy and transverse colon, a splenectomy was performed. The OPERATIVE REPORT [id number] DIAMOND VALLE vessels were isolated and taken with CHELSEY stapler with a white load vascular load stapler. The spleen was removed and sent off field for permanent pathology. The transverse colon and gastrojejunostomy en bloc resection was performed using sharp scissor dissection. The hepatic flexure was then mobilized. The ascending colon appeared to be viable and healthy without tumor involvement. During the mobilization, the hepatic flexure, transverse colon, the second and third portion of duodenum was identified. It was gently brushed away. The common bile duct was noted to have gross involvement of tumor in the mesentery along the common bile duct. This was taken en bloc without disruption of the common bile duct. When the en bloc resection was complete, the specimens were passed off the field and sent to pathology. Stomach was closed using a series of firings of the CHELSEY stapler without reconstruction and NG tube was placed and confirmed with palpation. The Kayden limb was stapled off and marked with a stay suture. The right colon was further mobilized to allow for a future colorectal anastomosis during a second look laparotomy. Throughout this extensive resection, we had acute blood loss requiring initiation of the mass transfusion protocol. The patient lost approximately 3 liters of blood during the operation. Once the full en bloc resection had been done, all bleeding was well controlled with combination had been controlled. All vessels were encountered and tied off using 2-0 Vicryl suture. The abdomen was irrigated with 4 liters of warm normal saline. There was no active bleeding. The areas along the posterior stomach and the left upper quadrant were packed with Surgicel. Due to the critical nature of this patient's operative course and tumor burden, I did not feel the reanastomosis was appropriate at this time as further operative time would be more physiologically harmful. An ABThera wound VAC was placed and with good seal. The patient was transferred in critical condition to the intensive care unit, intubated in critical condition. TRANSINT:[id number] Voice Confirmation ID: [id number] DOCUMENT ID: [id number] TORI PATTERSON MD at 0813 CC: [id number] DICTATION DATE: 11/03/191933 WATERMELON INSPECTOR: 11/04/19 0016 ADM IN [facility] [address] [place] [id number]
--- NOTE | 2019-11-04 09:39 | NUR ---
ATTEMPT TO GIVE PATIENT BATH HR INCREASED TO 147 B/P 100 SYS. WILL HOLD OFF UNTIL MORE STABLE.
[2019-11-04 11:41] LABS: HEMATOCRIT 22.5 % (36.0-48.0); HEMOGLOBIN 7.7 g/dL (12-16)
--- NOTE | 2019-11-04 12:15 | NUR ---
TO SURGERY WITH PJ ZHU AND JENN NELSON.
--- NOTE | 2019-11-04 15:45 | NUR ---
RECIEVED PT BACK FROM OR. PLACED ON VENT SAME SETTINGS. NGT WITH RED BLOOD NOTED. CONNECTED TO LOW INTERMITTENT SUCTION. ABD DRSG CDI TROY X 3 AND EMPTY AND RECORDED. COLOSTOMY NOTED WITH NO DRAINAGE. J TUBE NOTED CONNECTED TO MEJIA BAG FOR DECOMPRESSION. MEJIA PATENT 600 CC AT TIME. HR 147. BP 90/70. DR BOATENG AND DR BRUNNER AT THE BEDSIDE. ABGS ORDERED WITH LYTES AND H/H LA. ALL FLUIDS PER FLOWSHEET. SR UP X 2. AT THE BEDSIDE.
--- NOTE | 2019-11-04 16:00 | NUR ---
DR BOATENG AT BEDSIDE ASSESSING PT.
[2019-11-04 17:08] LABS: OVA + PARASITE EXAM Final report (())
--- NOTE | 2019-11-04 17:15 | NUR ---
DR BOATENG HERE. INSTRUCT TO USE LEVOPHED FOR LOW BP NOT WORRIED UNLESS HR GREATER THAN 130. DECREASE FENTANYL TO 300 MCG/HR.
--- NOTE | 2019-11-04 19:05 | MORECARE ---
CASE MANAGEMENT DISCHARGE SUMMARY PATIENT: DIAMOND VALLE UNIT: [id number] ADM DATE: 10/29/19 AGE: 53 : 61 SEX: F ROOM/BED: D.2304 AUTHOR: JOSUE TRAN PHYSICIAN: REFERRING PHYSICIAN: OSITO KEBEDE MD DATE OF SERVICE: 11/04/19 Discharge Plan Patient Name: [facility]AMOND VALLE [facility] 1965 Planned Disposition: Anticipated Discharge Date: Discharge Date: Expected LOS: Initial Reviewer: [email or web address] Initial Review Date: 11/04/2019 Generated: 11/04/19 8:04 pm DCP- Discharge Planning Updated by [email or web address]: Susi Leo on 11/01/19 11:[address] ATTEMPTED TO SEE PATIENT FOR INITIAL ASSESSMENT, BUT SHE WAS IN A PROCEDURE WILL TRY AGAIN AT A LATER TIME DCPIA - Discharge Planning Initial Assessment Updated by [email or web address]: Trish Santana on 11/04/19 7:00 pm * How many steps to enter\exit or inside your home? 2-3 * PCP unknown * Pharmacy [facility] * Preadmission Environment Home with Family * ADLs Independent * Equipment None * List name and contact numbers for known caregivers / representatives who currently or will assist patient after discharge: HILLRAY OWEN - ?SPOUSE- [phone] VARUN VALLE - SISTER - [phone] * Verbal permission to speak to the caregivers and representatives has been obtained from the patient. N/A * Community resources currently utilized None * Additional services required to return to the preadmission environment? No * Can the patient safely return to the preadmission environment? Yes * Has this patient been hospitalized within the prior 30 days at any hospital? No Last DP export: 11/01/19 12:08 pm Patient Name: DIAMOND VALLE Page [id number] at 1905 All edits/amendments must be made on the electronic document DICTATION DATE: 11/04/191903 L D RN: KATHY 11/04/191903 RPT#: [id number] DC DATE: STATUS: ADM IN [place] [address] [place] [id number] END OF REPORT
--- NOTE | 2019-11-04 19:12 | MORECARE ---
CASE MANAGEMENT DISCHARGE SUMMARY PATIENT: DIAMOND VALLE UNIT: [id number] ADM DATE: 10/29/19 AGE: 53 : 61 SEX: F ROOM/BED: D.2304 AUTHOR: MARC,DOC PHYSICIAN: REFERRING PHYSICIAN: OSITO KEBEDE MD DATE OF SERVICE: 11/04/19 Discharge Plan Patient Name: DIAMOND VALLE Facility: [facility]:[place] : 1965 Planned Disposition: Anticipated Discharge Date: Discharge Date: Expected LOS: Initial Reviewer: [email or web address] Initial Review Date: 11/04/2019 Generated: 11/04/19 8:11 pm Comments DCP- Discharge Planning Updated by [email or web address]: Trish Santana on 11/04/19 6:[address] Patient Name: DIAMODN VALLE Admission Status: ER Accout number: [id number] Admission Date: 10-29-2019 : 1965 Admission Diagnosis: Attending: GROVER KEBEDE Current LOS: 6 Anticipated DC Date: Planned Disposition: Primary Insurance: [facility] [employer] Discharge Planning Comments: CM met with patient's ? Isra Van to complete initial dc planning assessment. Patient is currently on vent sedated. CM educated patient on the CM role and verbal consent given by patient to complete assessment. Patient lives at home with her where she is independent with her care. At discharge patient plans to return home and feels this is a safe discharge. CM discussed availability of home health, rehab services, and medical equipment. Patient denied known discharge needs at this time. Uncertain of discharge disposition. MD to discuss with family comfort care / hospice. CM will continue to follow and will assist as needed with dc plans/needs. Supply Chain Coordinator: Trish Santana DCP- Discharge Planning Updated by [email or web address]: Susi Leo on 11/01/19 11:[address] ATTEMPTED TO SEE PATIENT FOR INITIAL ASSESSMENT, BUT SHE WAS IN A PROCEDURE WILL TRY AGAIN AT A LATER TIME DCPIA - Discharge Planning Initial Assessment Updated by [email or web address]: Trish Santana on 11/04/19 7:00 pm * How many steps to enter\exit or inside your home? 2-3 * PCP unknown * [facility] [place] [facility] [place] * Preadmission Environment Home with Family * ADLs Independent * Equipment None * List name and contact numbers for known caregivers / representatives who currently or will assist patient after discharge: ISRA VAN - ?SPOUSE- [phone] VARUN VALLE - SISTER - [phone] * Verbal permission to speak to the caregivers and representatives has been obtained from the patient. N/A * Community resources currently utilized None * Additional services required to return to the preadmission environment? No * Can the patient safely return to the preadmission environment? Yes * Has this patient been hospitalized within the prior 30 days at any hospital? No Last DP export: 11/04/19 6:05 p Patient Name: DIAMOND VALLE Page [id number] at 191 All edits/amendments must be made on the electronic document DICTATION DATE: 11/04/191911 GEOLOGY PROFESSOR: KATHY 11/04/191911 RPT#: [id number] DC DATE: STATUS: ADM IN [facility] [address] [place] [address] END OF REPORT
--- NOTE | 2019-11-04 19:35 | NUR ---
ASSESSMENT COMPLETED, ETT PATENT TO VENT, FINE CRACKLES NOTED BILAT, OPENS EYES TO STIMULI, RIGHT IJ CVL INTACT WITH MULTI IVF'S INFUSING, MIDLINE ABDOMINAL INCISION WITH DRSG CDI, TROY DRAIN X3 TO LEFT ABDOMEN DRAINING BLOODY FLUID, J-TUBE TO GRAVITY DRAINAGE, NGT TO LIWS, MEJIA PATENT TO BSD, LEFT AND RIGHT HAND PIV'S SL, BILAT SWR IN USE, WILL CONT TO MONITOR
[2019-11-04 20:11] LABS: HEMATOCRIT 33.5 % (36.0-48.0); HEMOGLOBIN 11.5 g/dL (12-16)
--- NOTE | 2019-11-04 21:00 | NUR ---
PT SEDATED, PRESENT AT BEDSIDE, ASKING WHERE PT CELL PHONE IS, WAS ABLE TO FIND CELL PHONE IN BEDSIDE TABLE IN ROOM 2118 WHERE PT WAS FROM, GIVEN TO TO TAKE HOME, DR BOATENG HERE, DISCUSSED CARE WITH HIM, WILL CONT TO MONITOR
--- NOTE | 2019-11-04 23:00 | NUR ---
PT REMAINS SEDATED, BECOMES EASILY AGITATED WITH STIMULI, VITALS STABLE, WILL CONT TO MONITOR
[2019-11-05] VITALS (95 sets, daily range): BP systolic 82–128; BP diastolic 45–87
--- NOTE | 2019-11-05 01:00 | NUR ---
PT TEMP 100.9, ICE PACKS PLACED TO BILAT GROIN AND LEFT AXILLARY, WILL CONT TO MONITOR
[2019-11-05 04:42] LABS: HEMATOCRIT 31.7 % (36.0-48.0)
[2019-11-05 04:52] LABS: HEMATOCRIT 31.6 % (36.0-48.0); MCH 30.8 pg (26.0-34.0); MCHC 34.8 g/dL (31.0-37.0); PLATELET COUNT 216 10x3/uL (130-400); RBC 3.57 10x6/uL (4.00-5.40); RDW 16.3 % (11.5-14.5); WBC 10.8 10x3/uL (4.8-10.8)
[2019-11-05 04:55] LABS: MCV 88.5 fL (80.0-100.0)
[2019-11-05 05:16] LABS: ALKALINE PHOSPHATASE 31 U/L (30-120); BILIRUBIN - TOTAL 1.26 mg/dL (0.2-1.3); CARBON DIOXIDE 28.1 mmol/L (21.0-32.0); CHLORIDE - SERUM 109 mmol/L (98-107); CREATININE - SERUM 0.6 mg/dL (0.6-1.3); PHOSPHOROUS 3.1 mg/dL (2.5-4.9); PROTEIN - SERUM 4.1 g/dL (6.4-8.2); SODIUM 143 mmol/L (136-145); eGFR NON AFRICAN AMERICAN > 90 mL/min (90-120)
[2019-11-05 05:24] LABS: CALC OSMOLALITY 283 mosm/kg (275-300); GLUCOSE 93 mg/dL (74-106); MAGNESIUM - SERUM 0.9 mg/dL (1.8-2.4); POTASSIUM - SERUM 3.5 mmol/L (3.5-5.1); UREA NITROGEN 9 mg/dL (7-18)
[2019-11-05 05:26] LABS: ALT (SGPT) 17 U/L (10-68); CALCIUM 6.8 mg/dL (8.5-10.1)
[2019-11-05 06:01] LABS: LYMPHOCYTES 13 % (15-50); MONOCYTES 1 % (2-11); NEUTROPHILS 83 % (40-80); PLATELET ESTIMATE NORMAL
--- NOTE | 2019-11-05 07:00 | NUR ---
ASSESSMENT PER FLOWSHEET. ST HR 133 ON MONITOR. SR UP X 2. CALL LIGHT WITHIN REACH.
--- NOTE | 2019-11-05 08:00 | NUR ---
FAMILY AT THE BEDSIDE AND UPDATED.
--- NOTE | 2019-11-05 08:20 | OP ---
PATIENT NAME: DIAMOND VALLE MEDICAL RECORD: [id number] :[birth year] LOCATION:.[facility] D.2304 ADMISSION DATE:10/29/19 SURGEON: TORI PATTERSON MD DATE OF OPERATION: 11/04/2019 SURGEON: Tori Patterson MD PREOPERATIVE DIAGNOSIS: Metastatic adenocarcinoma with peritoneal carcinomatosis, hemorrhagic shock, open abdomen. POSTOPERATIVE DIAGNOSIS: Metastatic adenocarcinoma with peritoneal carcinomatosis, hemorrhagic shock, open abdomen. PROCEDURE PERFORMED: 1. Gastrojejunostomy. 2. Feeding jejunostomy. 3. Creation of an end colostomy. 4. Delayed abdominal wound closure. 5. EGD. ESTIMATED BLOOD LOSS: 200 cc. ANESTHESIA: General. COMPLICATIONS: None. SPECIMENS: Partial colectomy. Case was grossly contaminated. OPERATIVE COURSE: After consent was obtained, the patient was taken from the ICU to the operating room and intubated in critical condition. The patient was placed on the operating table. A timeout was taken to confirm the correct patient and procedure. The ABThera abdominal wound VAC was removed. The abdomen was prepped and draped in typical sterile fashion. A Bookwalter retractor was placed. The abdomen was copiously irrigated and suctioned, freeing up the loose adhesions, mainly with gentle traction of the bowel and irrigation. Once the bowel was freed up, the stomach was identified. The stomach was grasped with Babcocks. The OrVil Anvil device was attempted. The Anvil dislodged just above the vocal cords from the delivery device that was removed the anesthesiologist without difficulty. At this time, a gastrotomy was made. A pursestring suture was used with a 2-0 Prolene suture. The 25-mm EEA stent was placed in the stomach. A pursestring suture was placed. The previous enteroenterostomy was opened and the EEA stapler was passed through the enterotomy to the Kayden limb staple line. The spike was deployed. It was connected to the anvil. A 25 mm EEA anastomosis was performed. The staple line was imbricated using 3-0 Vicryl suture. The enterotomy was closed with a single firing of the CHELSEY linear cutting stapler. That staple line was then imbricated with 3-0 Vicryl suture. The remaining portion of the right colon was mobilized. The distal portion of it appeared dusky at the hepatic flexure. It was transected with the CHELSEY stapler and sent for permanent pathology. At this time, multiple abdominal implants were excised and sent for permanent pathology, which came back as metastatic adenocarcinoma. The remaining portion of the abdomen was irrigated and suctioned. An EGD was then performed, which showed a gastrojejunostomy with no evidence of leak. There appears to be some visual appearing adenocarcinoma at the GE junction. The scope was removed. At this time, distal to the enteroenterostomy, an area of small bowel was identified. OPERATIVE REPORT [id number] DIAMOND VALLE It was sutured to the anterior abdominal wall using 3-0 Vicryl suture. Again, an enterotomy was made. A jejunostomy tube was passed through the abdominal wall and into the enterotomy and advanced to the small bowel. A right lower quadrant circular incision was made. The subcutaneous tissue was dissected with electrocautery. The anterior fascia was opened with the electrocautery. The muscles were gently spread apart exposing the peritoneum, which was then opened with electrocautery. The ascending right colon was then delivered to the incision. At this time, remaining portion of the abdomen was again copiously irrigated and suctioned. No evidence of bowel injury. No evidence of bleeding. Three TROY drains were placed into the abdomen, one into the left upper quadrant and one in the left lateral pelvic side wall and one into the pelvis. They were secured to the skin using a 2-0 nylon suture. Next, the incision was closed with #1 looped PDS. Skin was closed with majo. The colostomy was then created in the right lower quadrant. The staple line was excised in a standard Rahel fashion. A colostomy was created in the right lower quadrant. At the end of the case, all needle and instruments counts were correct. The patient tolerated procedure well. She was transferred in critical condition back to the ICU, intubated. At the end of the case, all needle and instrument counts were correct. No complications occurred. TRANSINT:[id number] Voice Confirmation ID: [id number] DOCUMENT ID: [id number] TORI PATTERSON MD at 0820 CC: [id number] DICTATION DATE: 11/04/19 1600 PALLIATIVE CARE COORDINATOR: 11/04/19 2337 ADM IN [address] [place] [address]
--- NOTE | 2019-11-05 09:20 | NUR ---
Nutrition follow-up: Intubated, sedated Increased temp today NPO Labs reviewed; M.9 Will need nutrition support started within 24 hours if pt remains intubated RDN following.
[2019-11-05 11:43] LABS: POTASSIUM - SERUM 3.6 mmol/L (3.5-5.1)
[2019-11-05 11:45] LABS: MAGNESIUM - SERUM 2.2 mg/dL (1.8-2.4)
--- NOTE | 2019-11-05 17:00 | NUR ---
COMPLETE BATH DONE. LINENS CHANGED. SR UP X 2. CONTINUE TO MONITOR.
--- NOTE | 2019-11-05 19:10 | NUR ---
PT SEDATED, ETT PATENT TO VENT, NGT VIA LEFT NARE TO LIWS, RIGHT IJ CVL INTACT WITH IVF INFUSING, MIDLINE ABDOMINAL INCISION WITH DRESSING CDI, TROY DRAIN X3 TO LEFT ABDOMEN DRAINING BLOODY FLUID, RIGHT COLOSTOMY WITH BAG INTACT, J-TUBE INTACT TO BSD WITH CLEAR GREEN OUTOUT, MEJIA PATENT TO BSD, SCD'S TO BILAT LOWER LEGS, BILAT SWR IN USE, VITALS STABLE, WILL CONT TO MONITOR
--- NOTE | 2019-11-05 21:00 | NUR ---
PT ALERT WITH EYES OPEN, FAMILY PRESENT AT BEDSIDE, PT RESPONDS TO QUESTIONS, WILL CONT TO MONITOR
--- NOTE | 2019-11-05 23:00 | NUR ---
PT REMAINS SEDATED, OPENS EYES TO STIMULI, VITALS STABLE, NO DISTRESS NOTED
[2019-11-06] VITALS (114 sets, daily range): BP systolic 68–122; BP diastolic 42–86
--- NOTE | 2019-11-06 01:00 | NUR ---
WEANING, LEVOPHED, PT TOLERATING AT THIS TIME, WILL CONT TO MONITOR
--- NOTE | 2019-11-06 04:15 | NUR ---
PT FSBS 24, PAGED DR SIMS, PT GIVEN 1 AMP D50 IVP, CHANGED IVF TO D5W, WILL CONT TO MONITOR
[2019-11-06 05:15] LABS: BASOPHILS 0.1 % (0-2); EOSINOPHILS 0.3 % (0-7); HEMATOCRIT 29.3 % (36.0-48.0); HEMOGLOBIN 9.9 g/dL (12-16); IMMATURE GRANULOCYTES 0.5 % (0-5); LYMPHOCYTES 5.2 % (15-50); MCH 30.4 pg (26.0-34.0); MCHC 33.8 g/dL (31.0-37.0); MCV 89.9 fL (80.0-100.0); MEAN PLATELET VOLUME 10.6 fL (7.4-10.4); MONOCYTES 7.1 % (2-11); NEUTROPHILS 86.8 % (40-80); PLATELET COUNT 218 10x3/uL (130-400); RBC 3.26 10x6/uL (4.00-5.40); RDW 16.2 % (11.5-14.5); WBC 13.4 10x3/uL (4.8-10.8)
[2019-11-06 05:31] LABS: CALCIUM 7.4 mg/dL (8.5-10.1); CARBON DIOXIDE 24.3 mmol/L (21.0-32.0); CHLORIDE - SERUM 108 mmol/L (98-107); CREATININE - SERUM 0.6 mg/dL (0.6-1.3); SODIUM 140 mmol/L (136-145); UREA NITROGEN 8 mg/dL (7-18); eGFR NON AFRICAN AMERICAN > 90 mL/min (90-120)
[2019-11-06 05:40] LABS: CALC OSMOLALITY 279 mosm/kg (275-300); GLUCOSE 151 mg/dL (74-106)
[2019-11-06 05:41] LABS: POTASSIUM - SERUM 2.6 mmol/L (3.5-5.1)
[2019-11-06 06:12] LABS: MAGNESIUM - SERUM 1.9 mg/dL (1.8-2.4); PHOSPHOROUS 3.1 mg/dL (2.5-4.9)
--- NOTE | 2019-11-06 07:23 | NUR ---
PT RESTING IN BED, VSS. PT OPENS EYES AND LOOKS AROUND, PT SHAKES HEAD TO YES/NO QUESTIONS. MEJIA CATHETER DRAINING STRAW TINGED URINE FREELY VIA GRAVITY WITH NO LOOPS. 3 TROY DRAINS PRESENT TO PT LEFT ABD, ALL 3 TROY DRAINS COMPRESSED. NGT NOTED TO LEFT NARE CONNECTED TO LWIS. ETT SECURED. NO SIGNS OF DISTRESS NOTED AT THIS TIME, WILL CONT TO FOLLOW POC
--- NOTE | 2019-11-06 07:36 | NUR ---
PT FSBS 62, NOTIFIED ANA MAYA. NEW ORDER RECIEVED TO GIVE D50 X1 NOW AND PUT IN A ORDER FOR D50 IVP PRN FOR BS LESS THAN 60.
--- NOTE | 2019-11-06 09:00 | NUR ---
PT RESTING IN BED, ETT SECURED, NG TUBE TO LEFT NARE SECURED. NO SIGNS OF DISTRESS NOTED. MIKE WRIST RESTRAINTS IN PLACE. WILL CONT TO FOLLOW POC
--- NOTE | 2019-11-06 09:03 | NUR ---
PAGED AND NEW ORDER RECIEVED TO NO LONGER HAVE PT ON 1:1 WATCH
--- NOTE | 2019-11-06 11:00 | NUR ---
PT RESTING IN BED, ETT SECURED, VSS, ANSWERS YES/NO QUESTIONS BY SHAKING HER HEAD. NO SIGNS OF DISTRESS NOTED. REASSESSMENT COMPLETED. WILL CONT TO FOLLOW POC
--- NOTE | 2019-11-06 12:34 | NUR ---
NOTIFIED THAT PT HR IS 143, BP 90/67, AND CVP IS 8. PT HAS RECIEVED METOPROLOL 2.5MG AT 1145. NEW ORDER RECIEVED FROM TO GIVE 500ML NS BOLUS.
--- NOTE | 2019-11-06 13:54 | NUR ---
MADE AWARE THAT HR IS STILL IN THE 140S AND WHEN PROPOFOL IS INCREASED PT BP GOES DOWN INTO 80S SYSTOLIC AND HR COMES DOWN TO 120S. FENTANYL HAS BEEN INCREASED FOR PAIN AND PT WAS REPOSITIONED WELL. NEW ORDER RECIEVED TO GIVE 1000ML FLUID BOLUS AND GIVE ALBUMIN.
--- NOTE | 2019-11-06 15:44 | NUR ---
AND BOTH MADE AWARE OF PT HR 150 AND BP IN THE 90S SYSTOLIC AND NO NEW ORDERS RECIEVED AT THIS TIME.
--- NOTE | 2019-11-06 17:33 | NUR ---
HERE AND GAVE ORDER TO GIVE 1000ML NS BOLUS AND GIVE ANOTHER ALBUMIN
--- NOTE | 2019-11-06 18:16 | NUR ---
HERE AND GAVE ORDER FOR METOPROLOL 5MG ONCE NOW.
[2019-11-06 18:37] LABS: BASOPHILS 0.2 % (0-2); EOSINOPHILS 0.2 % (0-7); HEMATOCRIT 24.6 % (36.0-48.0); HEMOGLOBIN 8.5 g/dL (12-16); IMMATURE GRANULOCYTES 2.1 % (0-5); LYMPHOCYTES 5.4 % (15-50); MCH 30.7 pg (26.0-34.0); MCHC 34.6 g/dL (31.0-37.0); MCV 88.8 fL (80.0-100.0); MONOCYTES 7.6 % (2-11); NEUTROPHILS 84.5 % (40-80); PLATELET COUNT 191 10x3/uL (130-400); RBC 2.77 10x6/uL (4.00-5.40); RDW 15.7 % (11.5-14.5); WBC 12.1 10x3/uL (4.8-10.8)
--- NOTE | 2019-11-06 19:30 | NUR ---
PT SEDATED, ETT PATENT TO VENT, NGT VIA LEFT NARE TO LIWS, RIGHT IJ CVL INTACT WITH MULTI IVF'S INFUSING, BILAT SWR IN USE, ABDOMINAL INCISION WITH DRSG CDI, TROY DRAINS X3 DRAINING SEROUS FLUID, J-TUBE TO GRAVITY DRAINAGE, RIGHT COLOSTOMY WITH BAG INTACT, MEJIA PATENT TO BSD, SCD'S TO BILAT LOWER LEGS, B/P LOW, INCREASEDLEVOPHED GTT, WILL CONT TO MONITOR
--- NOTE | 2019-11-06 21:30 | NUR ---
UPDATED DR SIMS ON PT CONDITION, ORDERS RECIEVED, D5W INCREASED TO 80 CC/HR, GIVEN ALBUMIN 50 G
--- NOTE | 2019-11-06 23:00 | NUR ---
PT RESTING QUIETLY, REMAINS SEDATED, VITALS STABLE, WILL CONT TO MONITOR
[2019-11-07] VITALS (99 sets, daily range): BP systolic 68–136; BP diastolic 51–95
--- NOTE | 2019-11-07 00:30 | NUR ---
PT BATHED PER STAFF, HR 130-140'S, GIVEN METOPROLOL IVP, WILL CONT TO MONITOR
--- NOTE | 2019-11-07 03:15 | NUR ---
PT REMAINS SEDATED, B/P LOW, CONT TO INCREASE LEVOPHED GTT TO COMPENSATE, BECOMES AGITATED WITH STIMULI, WILL CONT TO MONITOR
--- NOTE | 2019-11-07 06:15 | NUR ---
SPOKE WITH DR FAM, UPDATED ON PT CONDITION, ORDERS RECIEVED, STARTED VASOPRESSIN GTT, PT SEDATED, WILL CONT TO MONITOR
[2019-11-07 06:58] LABS: CALCIUM 7.5 mg/dL (8.5-10.1); CARBON DIOXIDE 25.4 mmol/L (21.0-32.0); CHLORIDE - SERUM 109 mmol/L (98-107); CREATININE - SERUM 0.6 mg/dL (0.6-1.3); SODIUM 142 mmol/L (136-145); eGFR NON AFRICAN AMERICAN > 90 mL/min (90-120)
[2019-11-07 06:59] LABS: CALC OSMOLALITY 278 mosm/kg (275-300); GLUCOSE 72 mg/dL (74-106); UREA NITROGEN 4 mg/dL (7-18)
[2019-11-07 07:02] LABS: BASOPHILS 0.1 % (0-2); HEMATOCRIT 26.5 % (36.0-48.0); HEMOGLOBIN 8.9 g/dL (12-16); MCHC 33.6 g/dL (31.0-37.0); MCV 89.2 fL (80.0-100.0); MEAN PLATELET VOLUME 10.4 fL (7.4-10.4); PLATELET COUNT 182 10x3/uL (130-400); RBC 2.97 10x6/uL (4.00-5.40); RDW 15.9 % (11.5-14.5)
[2019-11-07 07:06] LABS: WBC 8.5 10x3/uL (4.8-10.8)
--- NOTE | 2019-11-07 07:30 | NUR ---
PATIENT SEDATED ON VENT. ETT SECURE BILATERAL LUNG SOUNDS EQUAL AND CONGESTED. NG TUBE TO LOW INTERMITTENT SUCTION DRAINAGE REDISH BROWN. RIJ TRIPLE LUMEN CENTRAL LINE INFUSING WITH NS AT KVO. BOLUS JUST COMPLETED. FENTANYL AT 275 MCG/HOUR. PROPFFOL INFUSING AT 30 MCG/KG/MIN. POTASSIUM RIDER AT 50 ML HOUR D5W AT 80 ML HOUR. VASOPRESSIN AT 0.04 UNITS/MIN. LEVOPHED AT 28 MCG/MIN. ABD DRESSING DRY AND INTACT. TROY DRAINS X 3 INTACT WITH SEROUS DRAINAGE IN ALL J TUBE TO GRAVITY DRAINAGE NO DRAINAGEIN TUBEING OR BAG. MEJIA CATH PATENT DRAINING CLEAR AMY URINE. SCD ON LOWER LEGS. HEAD OF BED FLAT. MONITOR ST.
[2019-11-07 07:35] LABS: MAGNESIUM - SERUM 1.8 mg/dL (1.8-2.4); PHOSPHOROUS 2.9 mg/dL (2.5-4.9)
--- NOTE | 2019-11-07 09:30 | NUR ---
WEANING LEVOPHED TO KEEP SYS BP ABOVE 90 MAP ABOVE 65 CURRENTLY AT 25 MCG/MIN. REPOSIITONED ON LEFT SIDE. TOLERATED WELL. DR. FAM HERE. OXYGEN INCREASED TO 40% FOR SAT OF 89%.
--- NOTE | 2019-11-07 11:33 | NUR ---
OXYGEN INCREASED TO 60% FOR SAT OF 91%. LEVOPHED AT 23 MCG/MIN. CONTINUE TO WEAN TO MAINTAIN SYS BP AT 90. POTASSIUM RIDER CONTINUES. REPOSITIONED RIGHT SIDE. HEELS BRIDGED ON PILLOW. RESTING COMFORTABLY NO DISTRESS
--- NOTE | 2019-11-07 13:30 | NUR ---
FAMILY HERE UPDATE GIVEN. QUESTIONS ANSWERS
--- NOTE | 2019-11-07 14:34 | NUR ---
PATIENT DIPRIVAN TURNED DOWN TO 25 MCG/KG/MIN. PATIENT WAKING UP MORE OPENING EYES, MOVING ALL EXTREMITITES, TIRES SQUEEZE HANDS, REACHES UP TOWARD ETT. GRIMACES WITH ORAL CARE. ABD DRESSING CHANGED ABD LOOKS TIGHT DISTENDED LOOKING. RADHA INTACT. SOME TANISH CLEAR DRAINAGE FROM INCISION NOTED. STERILE 4X4 APPLIED SECURE WITH TAPE, INCISION CLEAN WITH BETADINE. TROY DRAINS X 3 AND J TUBE WITHOUT DRAINAGE. ALL SITES CLEAN WITH BETADINE. STERILE DRESSING APPLIED SECURE WITH TAPE. PATIENT TOLERATED WELL. TROY DRAIN COMPRESSED WITH SEROUS DRAINAGE. SMALL AMOUNT GREEN DRAINAGE IN TUBING OF J TUBE. MONITOR SR. HEART RATE INCREASED WHEN LINEN CHANGED. SUCTION LARGE AMOUNT TANISH YELLOW SECRETIONS FROM ETT. MINIMAL ORAL SECRETIONS.
--- NOTE | 2019-11-07 15:06 | NUR ---
DR. BOATENG CALLED STATES DO NOT GIVEN 2ND UNIT OF BLOOD, WEAN VASOPRESSIN OFF
--- NOTE | 2019-11-07 16:31 | NUR ---
FAMILY HERE UPDATE GIVEN. VASOPRESSIN WEANED OFF. ONE UNIT OF BLOOD GIVEN WITHOUT REACTION AT THIS TIME. LEVOPHED WEAN DOWN TO 15 MCG. ABD DRESSING DRY AND INTACT. TROY DRAINS EMPTIES SERSANG IN TROY #1. #2 AND #3 SEROUS DRAINAGE. J TUBE INTACT. NO DRAINAGE IN BAG. RESTING COMFORTABLY NO DISTRESS
--- NOTE | 2019-11-07 17:30 | NUR ---
WEANING LEVOPHED AT 13 MCG. REPOSITIONED. RESTING COMFORTABLY NO DISTRESS
--- NOTE | 2019-11-07 19:00 | NUR ---
REPORT RECEIVED, CARE ASSUMED. RECEIVED PATIENT IN BED, SEDATED/INTUBATED. ETT INTACT/SECURE/PATENT CONNECTED TO [facility] VENT AT ORDERED SETTINGS. ASSESSMENT COMPLETED PER FLOW SHEET WITH NO ACUTE DISTRESS OBSERVED. MONITORS CONNECTED TO PATIENT WITH ALARMS SET. VSS. CONTINUES ON IV PRESSOR SUPPORT, TITRATED PER ORDER. NGT INTACT/SECURE/PATENT CONNECTED TO LIT SUCTION DRAINING SMALL AMOUNT OF BLOODY DRAINAGE INTO COLLECTION CHAMBER. PLACEMENT VERIFIED VIA AUSCULTATION. TURNED AND REPOSITIONED FOR COMFORT. ORAL CARE PERFORMED.
--- NOTE | 2019-11-07 21:00 | NUR ---
SEDATED/INTUBATED. ETT INTACT/SECURE/ PATENT CONNECTED TO MECH VENT AT ORDERED SETTINGS. VSS.
--- NOTE | 2019-11-07 23:00 | NUR ---
TURNED AND POSITIONED FOR COMFORT. ORAL CARE PERFORMED. REASSESSMENT COMPLETED PER FLOW SHEET WITH NO ACUTE DISTRESS OBSERVED. VSS. ETT INTACT/SECURE/PATENT AND CONNECTED TO MECH VENT AT ORDERED SETTINGS.
[2019-11-08] VITALS (88 sets, daily range): BP systolic 92–142; BP diastolic 61–98
--- NOTE | 2019-11-08 01:00 | NUR ---
SEDATED/INTUBATED. VSS.
--- NOTE | 2019-11-08 01:00 | NUR ---
INTUBATED/SEDATED. VSS.
--- NOTE | 2019-11-08 03:00 | NUR ---
REASSESSMENT COMPLETED PER FLOW SHEET WITH NO ACUTE DISTRESS OBSERVED. VSS.
--- NOTE | 2019-11-08 05:00 | NUR ---
SEDATED/INTUBATED. NO DISTRESS OBSERVED. VSS.
[2019-11-08 06:16] LABS: CALC OSMOLALITY 282 mosm/kg (275-300); CALCIUM 8.3 mg/dL (8.5-10.1); CARBON DIOXIDE 24.2 mmol/L (21.0-32.0); CHLORIDE - SERUM 109 mmol/L (98-107); CREATININE - SERUM 0.6 mg/dL (0.6-1.3); POTASSIUM - SERUM 3.6 mmol/L (3.5-5.1); SODIUM 143 mmol/L (136-145); UREA NITROGEN 5 mg/dL (7-18); eGFR NON AFRICAN AMERICAN > 90 mL/min (90-120)
[2019-11-08 06:18] LABS: GLUCOSE 124 mg/dL (74-106)
[2019-11-08 07:44] LABS: BASOPHILS 0.2 % (0-2); EOSINOPHILS 0 % (0-7); LYMPHOCYTES 5.6 % (15-50); MCH 29.6 pg (26.0-34.0); MCHC 32.8 g/dL (31.0-37.0); MCV 90.1 fL (80.0-100.0); MEAN PLATELET VOLUME 11.7 fL (7.4-10.4); MONOCYTES 12.3 % (2-11); NEUTROPHILS 72.9 % (40-80); PLATELET COUNT 159 10x3/uL (130-400)
[2019-11-08 07:51] LABS: HEMATOCRIT 33.5 % (36.0-48.0); RBC 3.72 10x6/uL (4.00-5.40); WBC 16.3 10x3/uL (4.8-10.8)
--- NOTE | 2019-11-08 09:00 | NUR ---
patient respositioned. no acute distress. side rails x2. call light within reach. awaiting air overly. vss. oral care done. provided family update. will continue to monitor
--- NOTE | 2019-11-08 11:00 | NUR ---
patient repositioned. see adls see reassement.
--- NOTE | 2019-11-08 12:14 | NUR ---
Nutrition follow-up: Intubated, ssedated; off pressors at this time G-J tube placed; to gravity at this time Labs reivewed Wt: 131# NPO at this time. RDN following.
--- NOTE | 2019-11-08 13:40 | NUR ---
patient turned. repositioned for comfort. will continue to monitor
--- NOTE | 2019-11-08 19:00 | NUR ---
BEDSIDE REPORT AND SHIFT ASSESSMENT COMPLETE, SEE FLOWSHEET. VSS, NO SIGNS OF ACUTE DISTRESS NOTED. PT SEDATED, OPENS EYES. ABD INCISION DRESSING CDI, TROY DRAIN X 3 WITH SEROUS OUTPUT. MEJIA IN PLACE. SCD'S IN PLACE. R IJ CVL PATENT, SEE IV FLOWSHEET. WILL MONITOR.
--- NOTE | 2019-11-08 19:17 | MORECARE ---
CASE MANAGEMENT DISCHARGE SUMMARY PATIENT: DIAMOND VALLE UNIT: [id number] ADM DATE: 10/29/19 AGE: 53 : 61 SEX: F ROOM/BED: D.2304 AUTHOR: MARC,DOC PHYSICIAN: REFERRING PHYSICIAN: OSITO KEBEDE MD DATE OF SERVICE: 11/08/19 Discharge Plan Patient Name: DIAMOND VALLE Facility: [facility]:[place] : 1965 Planned Disposition: Anticipated Discharge Date: Discharge Date: Expected LOS: Initial Reviewer: [email or web address] Initial Review Date: 11/04/2019 Generated: 11/08/19 8:17 pm Comments DCP- Discharge Planning Updated by [email or web address]: Trish Santana on 11/08/19 6:[address] CM received a call from a family member that was very hostile requesting patient to be transferred to [facility] for in their opinion higher level of care. Later family member was noted to be daughter -n law (Poli Fay [phone]) She was demanding patient be transferred and relayed that patient is not being taken care of by nursing and physicians. After CM got off phone CM spoke with Dr. Rangel and she stated that it would be a lateral move not higher level of care. CM contacted [facility] Teacher of request for transfer. CM was trying to find out with whom the decision maker is within family. Patient has children and siblings but she also has a man claiming to be her Hillary Van. Eldest Henrry name is Reyes Valle [phone]? with whom is stated to be a paraplegic. Hillary Van (spouse) and sister Varun Valle both of which are listed as contacts and have password stated they did not want patient transferred to [facility]. [place] witness this conversation with Hillary. Patient was able to shake her head when asked if she wanted to transfer. CM will continue to follow and assist as needed with discharge planning / needs. DCP- Discharge Planning Updated by [email or web address]: Trish Santana on 11/04/19 6:[address] Patient Name: DIAMOND VALLE Admission Status: ER Accout number: [id number] Admission Date: 10-29-2019 : 1965 Admission Diagnosis: Attending: GROVER KEBEDE Current LOS: 6 Anticipated DC Date: Planned Disposition: Primary Insurance: [facility] [employer] Discharge Planning Comments: CM met with patient's ? Hillary Van to complete initial dc planning assessment. Patient is currently on vent sedated. CM educated patient on the CM role and verbal consent given by patient to complete assessment. Patient lives at home with her where she is independent with her care. At discharge patient plans to return home and feels this is a safe discharge. CM discussed availability of home health, rehab services, and medical equipment. Patient denied known discharge needs at this time. Uncertain of discharge disposition. MD to discuss with family comfort care / hospice. CM will continue to follow and will assist as needed with dc plans/needs. Route Service Representative: Trish Santana DCP- Discharge Planning Updated by [email or web address]: Susi Leo on 11/01/19 11:[address] ATTEMPTED TO SEE PATIENT FOR INITIAL ASSESSMENT, BUT SHE WAS IN A PROCEDURE WILL TRY AGAIN AT A LATER TIME DCPIA - Discharge Planning Initial Assessment Updated by [email or web address]: Trish Santana on 11/04/19 7:00 pm * How many steps to enter\exit or inside your home? 2-3 * PCP unknown * Pharmacy [facility] * Preadmission Environment Home with Family * ADLs Independent * Equipment None * List name and contact numbers for known caregivers / representatives who currently or will assist patient after discharge: HILLARY VAN - ?SPOUSE- [phone] VARUN VALLE - SISTER - [phone] * Verbal permission to speak to the caregivers and representatives has been obtained from the patient. N/A * Community resources currently utilized None * Additional services required to return to the preadmission environment? No * Can the patient safely return to the preadmission environment? Yes * Has this patient been hospitalized within the prior 30 days at any hospital? No Last DP export: 11/04/19 6:12 p Patient Name: DIAMOND VALLE Page [id number] at 1917 All edits/amendments must be made on the electronic document DICTATION DATE: 11/08/191916 TANK CARPENTER: KATHY 11/08/191916 RPT#: [id number] DC DATE: STATUS: ADM IN [facility] [address] [place] [address] END OF REPORT
--- NOTE | 2019-11-08 21:00 | NUR ---
ORAL CARE AND REPOSITIONING COMPLETE. ABD INCISION DRESSING CDI. WILL MONITOR.
--- NOTE | 2019-11-08 23:00 | NUR ---
REASSESSMENT COMPLETE, SEE FLOWSHEET.
[2019-11-09] VITALS (60 sets, daily range): BP systolic 71–116; BP diastolic 48–97
--- NOTE | 2019-11-09 03:00 | NUR ---
REASSESSMENT COMPLETE, SEE FLOWSHEET. PT RUNNING LOW GRADE TEMP, ICE PACKS PLACED ON CHEST AND GROIN. WILL REASSESS.
--- NOTE | 2019-11-09 05:00 | NUR ---
CHG BATH, LINEN CHANGE, MEJIA CARE COMPLETE. ABD DRESSING REINFORCED, LEAKING AROUND SITE.
[2019-11-09 05:44] LABS: CALC OSMOLALITY 281 mosm/kg (275-300); CALCIUM 7.7 mg/dL (8.5-10.1); CHLORIDE - SERUM 107 mmol/L (98-107); CREATININE - SERUM 0.6 mg/dL (0.6-1.3); GLUCOSE 97 mg/dL (74-106); MAGNESIUM - SERUM 1.7 mg/dL (1.8-2.4); SODIUM 143 mmol/L (136-145); UREA NITROGEN 4 mg/dL (7-18); eGFR NON AFRICAN AMERICAN > 90 mL/min (90-120)
[2019-11-09 05:54] LABS: CARBON DIOXIDE 32.3 mmol/L (21.0-32.0); POTASSIUM - SERUM 2.5 mmol/L (3.5-5.1)
--- NOTE | 2019-11-09 07:00 | NUR ---
REPORT RECEIVED. ASSESSMENT COMPLETE PER FLOW SHEET. VSS. PT RESTING COMFORTABLY WILL CONTINUE TOMONITOR
[2019-11-09 07:37] LABS: HEMATOCRIT 33.2 % (36.0-48.0); HEMOGLOBIN 10.9 g/dL (12-16); MCH 30.2 pg (26.0-34.0); MCHC 32.8 g/dL (31.0-37.0); MEAN PLATELET VOLUME 11.8 fL (7.4-10.4); RBC 3.61 10x6/uL (4.00-5.40); RDW 16.5 % (11.5-14.5); WBC 15.1 10x3/uL (4.8-10.8)
[2019-11-09 07:40] LABS: PLATELET COUNT 126 10x3/uL (130-400)
--- NOTE | 2019-11-09 08:10 | NUR ---
DR BOATENG AT BEDSIDE. GIVEN UPDATE. ABD DRSBryan CHANGE ADM. NO NWE FINDINGS. NEW ORDERS RECIEVED.
[2019-11-09 08:48] LABS: EOSINOPHILS 2 % (0-7); LYMPHOCYTES 3 % (15-50); MONOCYTES 12 % (2-11); NEUTROPHILS 83 % (40-80); PLATELET ESTIMATE NORMAL
[2019-11-09 08:49] LABS: ANISOCYTOSIS OCC; HYPOCHROMASIA OCC; ROULEAUX OCC; SMUDGE CELLS OCC
--- NOTE | 2019-11-09 13:15 | NUR ---
DR BOATENG AT BEDSIDE GIVEN UPDATE REGAURDING TEMP. NEW ORDERS RECIEVED AND ADM. NEEDS MET.
--- NOTE | 2019-11-09 15:00 | NUR ---
REASSESSMENT COMPLETE PER FLOW SHEET. VSS. PT ERSTING COMFORTABLY WILLC ONTINUE TO MONITOR
--- NOTE | 2019-11-09 19:00 | NUR ---
DURING BEDSIDE REPORT, PT WAS REPOSITIONED GENTELY. PT BEGAN TO PRODUCE THICK SECRETIONS FROM THE MOUTH. ETT WAS NOTED TO BE FREELY MOVING. THE ETT WAS SECURED BY THE TUBE TAMER. PT WAS NOT RECIEVING TITAL VOLUME. RT WAS NOTIFIED STAT. THE ETT WAS REMOVED AND RT STARTED BAGGING THE PT. ANESTESIA NOTIFIED STAT. DR BOATENG WAS ALSO NOTIFIED. NO NEW ORDERS FROM DR BOATENG AT THIS TIME. DR RANDOLPH THEN CAME AT THE PTS BEDSIDE AND PLACED AN 8.0 ETT [address] ACE GAVE SUCCINOCHOLINE AND DIPROVAN. PT O2 SAT DID NOT DROP BELOW 90%. OGT WAS SECURED DURING WHOLE TIME. VSS. CXR TAKEN. RADIOLOGIST RECOMMENED THAT ETT BE PULLED OUT 2-3 CM. RT NOTIFIED. WILL CONT POC.
--- NOTE | 2019-11-09 20:22 | NUR ---
DR RANDOLPH AT THE PTS BEDSIDE. DR RANDOLPH PULLED OUT ETT TO 21 CM AT THE TEETH.
--- NOTE | 2019-11-09 20:29 | NUR ---
VSS. PT SEDATED AND ON THE VENT. HEART RATE AT 130 SINUS TACH. CVP ZERO'D AND CVP IS 5-6. RIGHT IJ CVL NOTED. DRESSING C/D/I. MIDLINE ABD INCISION NOTED. RADHA WELL APPROXIMATED. DRESSING C/D/I. COLOSTOMY BAG NOTED WITH BROWN/SEROUSANG DRAINAGE IN BAG. TROY DRAINS X3 NOTED TO LEFT ABD. FC NOTED WITH C/D/I. URINE DARK YELLOW. CALL LIGHT IN REACH. WILL CONT POC.
--- NOTE | 2019-11-09 21:20 | NUR ---
HEART RATE 135. PRN LOPRESSOR GIVEN. WILL CONT TO VERITO.
--- NOTE | 2019-11-09 23:00 | NUR ---
REASSESSMENT COMPLETED. SEE FLOW SHEET. CALL LIGHT IN REACH. WILL CONT POC.
[2019-11-10] VITALS (24 sets, daily range): BP systolic 91–151; BP diastolic 62–108
--- NOTE | 2019-11-10 01:49 | NUR ---
PT REPOSITONED. VSS. CALL LIGHT IN REACH. WILL CONT POC.
--- NOTE | 2019-11-10 03:00 | NUR ---
REASSESSMENT COMPLETED. SEE FLOW SHEET.
--- NOTE | 2019-11-10 05:39 | NUR ---
FULL BED BATH AND LINEN CHANGE. DRESSING CHANGED. PURLENT DRAINAGE NOTED COMING FROM INCISION SITE (MIDLINE ABD). WILL CONT POC.
--- NOTE | 2019-11-10 07:00 | NUR ---
REPORT RECEIVED. ASSESSMENT COMPLETE PER FLOW SHEET. VSS. PT RESTING COMFORTABLY WILL CONTINUE TO MONITOR
[2019-11-10 07:07] LABS: CALCIUM 7.5 mg/dL (8.5-10.1); CARBON DIOXIDE 31.3 mmol/L (21.0-32.0); CHLORIDE - SERUM 105 mmol/L (98-107); CREATININE - SERUM 0.5 mg/dL (0.6-1.3); GLUCOSE 121 mg/dL (74-106); MAGNESIUM - SERUM 1.7 mg/dL (1.8-2.4); PHOSPHOROUS 2.5 mg/dL (2.5-4.9); SODIUM 141 mmol/L (136-145); eGFR NON AFRICAN AMERICAN > 90 mL/min (90-120)
[2019-11-10 07:09] LABS: CALC OSMOLALITY 279 mosm/kg (275-300); UREA NITROGEN 6 mg/dL (7-18)
[2019-11-10 07:10] LABS: POTASSIUM - SERUM 2.7 mmol/L (3.5-5.1)
[2019-11-10 07:11] LABS: APTT 38.6 SECONDS (22.8-39.4); INR 1.44 (0.85-1.17); PROTIME 17.4 SECONDS (11.6-15.0)
[2019-11-10 07:45] LABS: HEMATOCRIT 33.6 % (36.0-48.0); MCH 29.9 pg (26.0-34.0); MCHC 32.7 g/dL (31.0-37.0); MCV 91.3 fL (80.0-100.0); MEAN PLATELET VOLUME 12.3 fL (7.4-10.4); PLATELET COUNT 112 10x3/uL (130-400); RBC 3.68 10x6/uL (4.00-5.40); RDW 16.1 % (11.5-14.5); WBC 23.1 10x3/uL (4.8-10.8)
--- NOTE | 2019-11-10 09:00 | NUR ---
DR BOATENG AT BEDSIDE GIVEN UPDATE
[2019-11-10 09:23] LABS: ANISOCYTOSIS OCC; EOSINOPHILS 1 % (0-7); HYPOCHROMASIA OCC; LYMPHOCYTES 16 % (15-50); MONOCYTES 14 % (2-11); NEUTROPHILS 65 % (40-80); PLATELET ESTIMATE DECREASED; POLYCHROMASIA OCC; ROULEAUX OCC
--- NOTE | 2019-11-10 09:26 | NUR ---
Nutrition follow-up: Intubated, sedated with propofol @ 3 ml/hr Osmolite 1.0 emory @ 30 ml/hr Labs reviewed Wt: 140# RDN following.
--- NOTE | 2019-11-10 11:00 | NUR ---
REASSESSMENT COMPLET EPER FLOW SHEET. VSS. PT RESTING COMFORTABLY WILL CONTINUE TO MONITOR
--- NOTE | 2019-11-10 12:10 | NUR ---
DR RAMIREZ AT BEDSIDE GIVEN UDPATE TROY X2 REMOVED FROM L SIDE PER ORDER.
--- NOTE | 2019-11-10 13:00 | NUR ---
FAMILY AT BEDSIDE GIVEN UPDATE. PT RESTING COMFORTABLY WILL CONTINUE TO MONITOR
--- NOTE | 2019-11-10 15:00 | NUR ---
REASSESSMENT COMPLETE PER FLOW SHEET. VSS. PT RESTING COMFORTABLY WILL CONTINUE TO MONITOR
--- NOTE | 2019-11-10 17:15 | NUR ---
ORAL ENDOTRACH CARE ADM. REPOSITIONED FOR COMFORT
--- NOTE | 2019-11-10 20:14 | NUR ---
REPORT RECEIVED FROM THE OFF GOING RN. SEE ASSESSMENT IN THE PT FLOW SHEET. PT SEDATED ON THE VENT. VSS AT THIS TIME. SINUS TACHYCARDIA NOTED. MID ABD INCISION DRESSING C/D/I. COLOSTOMY BAG FULL OF DIARRHEA. 450CC EMPTIED. LEFT ABD TROY DRAIN NOTED COMPRESSED. J TUBE DRAIN NOTED C/D/I. FC NOTED AMY URINE. CALL LIGHT IN REACH. WILL CONT POC.
[2019-11-11] VITALS (24 sets, daily range): BP systolic 103–166; BP diastolic 70–118
--- NOTE | 2019-11-11 01:56 | NUR ---
ABD DRESSING CHANGE. PURULENT OOZE NOTED BELOW THE OPEN INCISIONAL SITE. WOUNDS CLEANED AND DRESSING APPLIED. PT TOLERATED WELL. DR BOATENG AWARE OF PURULENT DRAINAGE. WILL CONT PO.
[2019-11-11 06:29] LABS: HEMATOCRIT 33.3 % (36.0-48.0); HEMOGLOBIN 10.7 g/dL (12-16); MCH 29.7 pg (26.0-34.0); MCHC 32.1 g/dL (31.0-37.0); MCV 92.5 fL (80.0-100.0); MEAN PLATELET VOLUME 13.2 fL (7.4-10.4); PLATELET COUNT 122 10x3/uL (130-400); RDW 16.4 % (11.5-14.5); WBC 31.9 10x3/uL (4.8-10.8)
[2019-11-11 06:40] LABS: CALCIUM 7.8 mg/dL (8.5-10.1); CARBON DIOXIDE 26.9 mmol/L (21.0-32.0); CHLORIDE - SERUM 107 mmol/L (98-107); GLUCOSE 140 mg/dL (74-106); SODIUM 141 mmol/L (136-145)
[2019-11-11 06:42] LABS: CALC OSMOLALITY 280 mosm/kg (275-300); CREATININE - SERUM 0.7 mg/dL (0.6-1.3); POTASSIUM - SERUM 2.7 mmol/L (3.5-5.1); UREA NITROGEN 8 mg/dL (7-18); eGFR NON AFRICAN AMERICAN > 90 mL/min (90-120)
--- NOTE | 2019-11-11 08:11 | NUR ---
ATTEMPTED TO CPAP 10/5 40% BUT AFTER A SHORT TIME PATIENT BEGAN TO GET AGITATED, RESPIRATORY RATE 70, RSBI 232, HR 152, AND BP 171/107. DISCOUNTINED TRAIL AT THIS TIME WILL CONSULT DR. PAZ.
--- NOTE | 2019-11-11 08:21 | NUR ---
hr shot up to 155 when sedation was taken off and was hypertensive and breathing 45 on assist control. respiratory switched her to cpap to see how she would do.. patient failed and was breathing 68 bpm with a hr of 160. patient switched back to a/c and sedated to decrease blood pressure and hr
--- NOTE | 2019-11-11 08:23 | NUR ---
0700- report recieved. fentanyl infusing at 150 propofol at 12 mcg with patient opening eyes and not following commands thoroughly. patient suctioned. oral care. no acute distress. d5 1.2 at 40. will continue to monitor patient. ssee assessment see adl's.
[2019-11-11 09:10] LABS: HYPOCHROMASIA OCC; LYMPHOCYTES 7 % (15-50); MONOCYTES 10 % (2-11); NEUTROPHILS 74 % (40-80); ROULEAUX OCC
[2019-11-11 09:12] LABS: PLATELET ESTIMATE NORMAL
[2019-11-11 14:59] LABS: CALC OSMOLALITY 280 mosm/kg (275-300); CALCIUM 7.8 mg/dL (8.5-10.1); CARBON DIOXIDE 25.4 mmol/L (21.0-32.0); CHLORIDE - SERUM 106 mmol/L (98-107); GLUCOSE 135 mg/dL (74-106); SODIUM 141 mmol/L (136-145); UREA NITROGEN 8 mg/dL (7-18)
[2019-11-11 15:00] LABS: CREATININE - SERUM 0.5 mg/dL (0.6-1.3); POTASSIUM - SERUM 3.4 mmol/L (3.5-5.1); eGFR NON AFRICAN AMERICAN > 90 mL/min (90-120)
--- NOTE | 2019-11-11 19:30 | NUR ---
DR BOATENG AT BEDSIDE, MANIPULATION OF JTUBE PERFORMED, NO CLOG AT THIS TIME. KANGAROO PUMP STILL ALARMING AFTER HE FINISHED, THIS RN FLUSHED WITHOUT DIFFICULTY WITH WARM WATER. PUMP CONTINUED TO ALARM FLOW ERROR, CHANGED KANGAROO PUMP AT THIS TIME. DR BOATENG INSTRUCTED TO FLUSH JTUBE NEEDED TO PREVENT CLOG.
--- NOTE | 2019-11-11 21:00 | NUR ---
PT INTUBATED AND SEDATED SINUS TACH NOTED TREATED WITH SCHEDULED MEDS SEE EMAR FOR ADMINISTRATION - CPOC
--- NOTE | 2019-11-11 21:00 | NUR ---
REASSESSMENT COMPLETED SEE FLOWSHEET
--- NOTE | 2019-11-11 23:10 | NUR ---
REASSESSMENT COMPLETED SEE FLOWSHEET
[2019-11-12] VITALS (24 sets, daily range): BP systolic 102–175; BP diastolic 76–118
--- NOTE | 2019-11-12 01:23 | NUR ---
PT INTUBATED / SEDATED VSS CPOC
--- NOTE | 2019-11-12 02:45 | NUR ---
REASSESSMENT COMPLETED SEE FLOWSHEET
--- NOTE | 2019-11-12 04:32 | NUR ---
DECREASED FIO2 TO 35% PER ABG
[2019-11-12 05:37] LABS: BASOPHILS 0.2 % (0-2); EOSINOPHILS 0.9 % (0-7); HEMATOCRIT 34.8 % (36.0-48.0); HEMOGLOBIN 11.3 g/dL (12-16); IMMATURE GRANULOCYTES 4.2 % (0-5); LYMPHOCYTES 6.6 % (15-50); MCH 29.7 pg (26.0-34.0); MCHC 32.5 g/dL (31.0-37.0); MCV 91.6 fL (80.0-100.0); MONOCYTES 6.8 % (2-11); NEUTROPHILS 81.3 % (40-80); PLATELET COUNT 158 10x3/uL (130-400); RDW 16.5 % (11.5-14.5); WBC 27.6 10x3/uL (4.8-10.8)
[2019-11-12 05:49] LABS: CALC OSMOLALITY 274 mosm/kg (275-300); CARBON DIOXIDE 27.6 mmol/L (21.0-32.0); CHLORIDE - SERUM 104 mmol/L (98-107); CREATININE - SERUM 0.6 mg/dL (0.6-1.3); GLUCOSE 113 mg/dL (74-106); SODIUM 138 mmol/L (136-145); UREA NITROGEN 8 mg/dL (7-18); eGFR NON AFRICAN AMERICAN > 90 mL/min (90-120)
--- NOTE | 2019-11-12 09:31 | NUR ---
Nutrition follow-up: Intubated, sedated with propofol @ 5.6 ml/hr J-tube with Osmolite 1.0 emory infusing @ 50 ml/hr -> goal rate 60 ml/hr 25 ml H2O flush/hour Labs reviewed Wt: 140# Tolerating TF at 50 ml/hr Recommend advancing TF to goal rate of 60 ml/hr RDN following.
[2019-11-12 10:09] LABS: FUNGUS STAIN Final report (())
--- NOTE | 2019-11-12 10:26 | NUR ---
2730-dr michel at bedside
--- NOTE | 2019-11-12 10:26 | NUR ---
paged dr michel
--- NOTE | 2019-11-12 10:35 | NUR ---
spoke with dr michel stated he wanted apresoline and haldol to calm patient and reduce bp.. dr brown was at bedside and stated to hold that and start a cardene drip and see how she does
--- NOTE | 2019-11-12 11:25 | NUR ---
DR PAZ AT BEDSIDE
[2019-11-12 13:09] LABS: ACID FAST SMEAR Negative (()); AFB SPECIMEN PROCESSING Concentration (())
--- NOTE | 2019-11-12 18:31 | NUR ---
DR BOATENG STATED TO CHANGE ABD DRESSING WET TO DRY
--- NOTE | 2019-11-12 18:34 | NUR ---
DRESSING CHANGE DONE AT 1500
--- NOTE | 2019-11-12 19:27 | NUR ---
PATIENT INTUBATED LIGHTLY SEDATED, SINUS TACH AND HYPERTENSION NOTED - MD AWARE, PT ABLE TO FOLLOW COMMANDS SHIFT ASSESSMENT COMPLETED SEE FLOWSHEET
--- NOTE | 2019-11-12 20:45 | NUR ---
PATIENT FAMILY AT BEDSIDE UPDATE GIVEN NO ACUTE CHANGES AT THIS TIME, CPOC
--- NOTE | 2019-11-12 23:08 | NUR ---
REASSESSMENT COMPLETED SEE FLOWSHEET
[2019-11-13] VITALS (24 sets, daily range): BP systolic 112–137; BP diastolic 72–95
[2019-11-13 06:04] LABS: BASOPHILS 0.2 % (0-2); EOSINOPHILS 0.6 % (0-7); HEMATOCRIT 32.1 % (36.0-48.0); HEMOGLOBIN 10.6 g/dL (12-16); IMMATURE GRANULOCYTES 4.1 % (0-5); LYMPHOCYTES 8.2 % (15-50); MCH 30.1 pg (26.0-34.0); MCV 91.2 fL (80.0-100.0); MEAN PLATELET VOLUME 12.2 fL (7.4-10.4); MONOCYTES 10.6 % (2-11); NEUTROPHILS 76.3 % (40-80); RBC 3.52 10x6/uL (4.00-5.40); RDW 16.3 % (11.5-14.5)
[2019-11-13 06:06] LABS: PLATELET COUNT 229 10x3/uL (130-400); WBC 18.4 10x3/uL (4.8-10.8)
[2019-11-13 06:22] LABS: CALCIUM 7.7 mg/dL (8.5-10.1); CARBON DIOXIDE 24.2 mmol/L (21.0-32.0); CHLORIDE - SERUM 99 mmol/L (98-107); CREATININE - SERUM 0.5 mg/dL (0.6-1.3); GLUCOSE 135 mg/dL (74-106); SODIUM 133 mmol/L (136-145); TROPONIN-I < 0.017 ng/mL (0.000-0.060); eGFR NON AFRICAN AMERICAN > 90 mL/min (90-120)
[2019-11-13 06:23] LABS: CALC OSMOLALITY 266 mosm/kg (275-300); UREA NITROGEN 11 mg/dL (7-18)
[2019-11-13 06:24] LABS: POTASSIUM - SERUM 2.7 mmol/L (3.5-5.1)
--- NOTE | 2019-11-13 10:28 | NUR ---
0700 ASSESMENT IS COMPLETE AFTER RECIEVING REPORT.. 0900 WIHTOUT VISITORS AT THIS TIME.. 1030 DR SORIANO IN TO SEE PT, ABDOMINAL DRESSIING CHANGED AT THIS TIME.. UPDATE GIVEN ..
--- NOTE | 2019-11-13 11:10 | NUR ---
1100 DR PAZ IN TO SEE PT.. UPDATE IS GIVEN..
--- NOTE | 2019-11-13 15:47 | NUR ---
1200 FAMILY IN TO SEE PT.. UPDATE GIVEN.. PT OPENS EYES FOR FAMILY MEMBER.. 1300 RREPOSITIONED AND COLOSTOMY BAG EMPTIED.. 1400 WIHTOUT CHANGES IN STATUS 1500 LAB IN AND BLOOD DRAWN FROM CVL 1530 I AND O DONE AND
--- NOTE | 2019-11-13 17:01 | NUR ---
1600 DR PAZ CHANGING ORDERS RE VANC METOPRALOL AND CARDENE 1645 VANC HUNG 1.5 GM PER ORDER CARDENE DRIP DCd LEBATALOL DRIP STARTED.. INITIAL RATE START AT 0.5.. FENTANYLL SYRINGE REORDERED..
--- NOTE | 2019-11-13 19:05 | NUR ---
BEDSIDE SHIFT REPORT AND SHIFT ASSESSMENT COMPLETED AT THIS TIME. IV LINES AND DRIPS ASSESSED. PT INTUBATED/SEDATED, OPENS EYES AND NODS HEAD, UNABLE TO BOARDING HOUSE MANAGER HANDS ON COMMAND AT THIS TIME, SEDATATION TITRATED AT THIS TIME FOR NEURO STATUS ASSESSMENT. TUBE FEED RUNNING AT A RATE OF 50CC/ HR. LEFT ABD TROY DRAIN EMPTIED AND COMPRESSED. SEE FLOWSHEET FOR FULL ASSESSMENT. VSS CPOC
--- NOTE | 2019-11-13 21:10 | NUR ---
PT RECEIVED SCHEDULE MED VIA Xiami RadioUBE SEE MAR FOR ADMINISTRATION, TEGADERM APPLIED TO TINY HOLE IN DISTAL CATHETER. PT REPOSTIONED FOR COMFORT ORAL CARE PROVIDED. VSS CPOC
--- NOTE | 2019-11-13 22:30 | NUR ---
ELECTROLYTES REPLACED PER PROTOCOL SEE EMAR FOR ADMINISTRATION. TROY TUBE PATENT AND FLUSHED AFTER MEDICATION ADMINISTRATION. VSS CPOC
--- NOTE | 2019-11-13 23:05 | NUR ---
REASSESSMENT COMPLETED SEE FLOWSHEET
[2019-11-14] VITALS (24 sets, daily range): BP systolic 97–151; BP diastolic 61–101
--- NOTE | 2019-11-14 03:10 | NUR ---
REASSESSMENT COMPLETED SEE FLOWSHEET
[2019-11-14 05:07] LABS: HEMATOCRIT 27.1 % (36.0-48.0); MCH 30.1 pg (26.0-34.0); MCHC 33.2 g/dL (31.0-37.0); MCV 90.6 fL (80.0-100.0); MEAN PLATELET VOLUME 11.8 fL (7.4-10.4); PLATELET COUNT 276 10x3/uL (130-400); RBC 2.99 10x6/uL (4.00-5.40); RDW 16.5 % (11.5-14.5); WBC 21.3 10x3/uL (4.8-10.8)
[2019-11-14 05:18] LABS: CALC OSMOLALITY 264 mosm/kg (275-300); CALCIUM 7.4 mg/dL (8.5-10.1); CARBON DIOXIDE 24.2 mmol/L (21.0-32.0); CHLORIDE - SERUM 100 mmol/L (98-107); CREATININE - SERUM 0.4 mg/dL (0.6-1.3); GLUCOSE 121 mg/dL (74-106); POTASSIUM - SERUM 3.5 mmol/L (3.5-5.1); SODIUM 132 mmol/L (136-145); TROPONIN-I < 0.017 ng/mL (0.000-0.060); UREA NITROGEN 10 mg/dL (7-18); eGFR NON AFRICAN AMERICAN > 90 mL/min (90-120)
[2019-11-14 05:23] LABS: LYMPHOCYTES 7 % (15-50); MONOCYTES 11 % (2-11); NEUTROPHILS 75 % (40-80); PLATELET ESTIMATE NORMAL
--- NOTE | 2019-11-14 11:43 | NUR ---
0700 REPORT RECIEVED AND CARE ASSUMED OF PATIENT.. PT REMAINS ORALLY INTUBATED AND SEDATED ON VENT.. ABDOMEN WITH COVERING INCISION,, IT IS SLIGHTLY SOILED WITH EXUDATE.. TROY DRAIN IN PLACE BROWN DRAINAGE.. COLOSTOMY WITH STOOL IN BAG AND OGT LIWS.. PT IS AWAKE OPENS EYE FENTANYL AND PROPAFOL INFUSING..LEBATALOL DRIP .. SR ON HEART MONITOR.. 0800 MEDS GIVEN.. 0930 PT IS WIDE AWAKE PULLING AT COLOSTIOMY BAG AND LINENS.. DIPRIVAN INCRESAED TO 20 MCG 0945 NEW BAG LEBATELOL HUNG AND RATE DECREASED TO 0.2 MG FOR BP 98/70 1030 WIHTOUT CHANGES FAMILY HAS CALLED AND UPDATE GIVEN 1130 DR PAZ IN TO SEE PT.. UPDATE GIVEN..
--- NOTE | 2019-11-14 14:03 | NUR ---
1200 WIHTOUT VISITORS..AWAKE AND RESP INCREASED TO 28 DIPRIVAN INCREASED 1300 PT IS AWAKE AND RESTLESS DIPRIVAN INCREASED.. REPOSITIONED RT IN ORAL CARE DONE.. 1330 ABDOMINAL DRESSING CHANGE DONE INCISION IS DRAINING A PURULENT PUS FROM BETWEEM THE SKIN RADHA.. DRESSING IS CHANGED AROUND J TUBE AND TROY THERE IS OOZING AROUND THOSE SITES ALSO.. PT HAD PULLED THE COLOSTOMY BAG FROM THE ANCHOR .. SITE CLEANED AND BAG ATTACHED. SOFT WRIST RESTRAINTS ARE IN USE AND SECURED.... 1340 NOTED AT THIS TIME THAT PT NGT IS DISLODGED AND PULLED APPROX 10 INCHES FROM INITIAL INSERTION TAPE DORY 1345 DR BOATENG CALLED VIA CELL PHONE PER HIS REQUEST FOR ISSUES... NUMERIC MESSAGE LEFT.. PT IS RESTING QUIETLY AT THIS TIME
--- NOTE | 2019-11-14 15:21 | NUR ---
1450 DR SORIANO CALLED AND INFORMED OF OGT DISPLACEMENT.. ORDER RECIEVED FOR CXR 1515 XR HERE TO DO CXR FOR TUBE PLACEMENT..
--- NOTE | 2019-11-14 16:19 | NUR ---
1600 I AND O DONE.. DR SORIANO IN TO SEE PT.. NGT DCd AT THIS TIME BY THE DR.. ABDOMINAL INCISION SHOWN TO . AND UPDATE GIVEN..
--- NOTE | 2019-11-14 18:03 | NUR ---
[address] SORIANO GAVE UPDATE TO HIM.. 1730 ABDOMINAL FLUID OBTAINED FROM AND SENT TO LAB... GONE FROM ROOM...
--- NOTE | 2019-11-14 18:30 | NUR ---
1830 WET TO DRY DRESSING TO ABDOMEN PER DR BO BENITEZ GAUZE AND DRY 4X4
--- NOTE | 2019-11-14 19:10 | NUR ---
bedside shift report completed, pt does not have NG tube any longer, green bile suctioned from mouth at this time. will continue to closely monitor, shift assessment completed. claudine drain has oily orange drainage at this time. vss, pt very agitated. cpoc
--- NOTE | 2019-11-14 21:10 | NUR ---
UNDATED RIGHT IJ DRESSING, CHANGED PER PROTOCOL USING STERILE TECHNIQUE, RT AT BEDSIDE TO HELP ENSURE PATIENT AND ETT SAFETY. PT RESTLESS AND AGITATED, TOLERATED DRESSING CHANGE OK. TUBE TAMER REAPPLIED AND PATIENT RESTRAINED. VSS CPOC
--- NOTE | 2019-11-14 23:45 | NUR ---
REASSESSMENT COMPLETED SEE FLOWSHEET
[2019-11-15] VITALS (68 sets, daily range): BP systolic 79–129; BP diastolic 58–115
--- NOTE | 2019-11-15 01:15 | NUR ---
NO CHANGES, TROY DRAIN EMPTIED AND COMPRESSED AT THIS TIME. YELLOW OILY LIQUID VSS CPOC
--- NOTE | 2019-11-15 03:26 | NUR ---
REASSESSMENT COMPLETED SEE FLOWSHEET
[2019-11-15 06:40] LABS: CALC OSMOLALITY 252 mosm/kg (275-300); CALCIUM 7.7 mg/dL (8.5-10.1); CARBON DIOXIDE 19.8 mmol/L (21.0-32.0); CHLORIDE - SERUM 96 mmol/L (98-107); CREATININE - SERUM 0.3 mg/dL (0.6-1.3); GLUCOSE 99 mg/dL (74-106); POTASSIUM - SERUM 3.5 mmol/L (3.5-5.1); SODIUM 127 mmol/L (136-145); eGFR NON AFRICAN AMERICAN > 90 mL/min (90-120)
[2019-11-15 06:42] LABS: UREA NITROGEN 6 mg/dL (7-18)
--- NOTE | 2019-11-15 06:51 | NUR ---
SPOKE WITH DR SORIANO - HE WILL SEE THE PATIENT TODAY
[2019-11-15 08:32] LABS: HEMATOCRIT 30.7 % (36.0-48.0); HEMOGLOBIN 10.1 g/dL (12-16); LYMPHOCYTES 3.2 % (15-50); MCH 30.1 pg (26.0-34.0); MCHC 32.9 g/dL (31.0-37.0); MCV 91.4 fL (80.0-100.0); NEUTROPHILS 92.5 % (40-80); PLATELET COUNT 359 10x3/uL (130-400); RBC 3.36 10x6/uL (4.00-5.40); RDW 16.8 % (11.5-14.5); WBC 28.8 10x3/uL (4.8-10.8)
--- NOTE | 2019-11-15 09:14 | NUR ---
Nutrition follow-up: Pt remains intubated, sedated with propofol @ 14.5 ml/hr NGT removed 2/2 displacement J-tube with Osmolite @ 50 ml/hr; pt tolerating at goal rate Labs reviewed Wt: 140# RDN following.
--- NOTE | 2019-11-15 17:13 | NUR ---
HERE. CALLED AND SPOKE WITH PT SISTER. FAMILY IS TO BE HERE AT 10AM TOMORROW FOR A FAMILY MEETING. STATES TO JUST TRY AND KEEP PT DRY POSSIBLE WITH TOWELS.
--- NOTE | 2019-11-15 18:07 | NUR ---
PT FAMILY CAME BACK WITH 2 VISITORS. CHARGE NURSE ADVISED FAMILY THAT ONLY ONE VISITOR ALLOWED BACK AT A TIME. FAMILY WENT TO WAITING ROOM. THEN ONCE AGAIN FAMILY CAME IN SO THAT 2 VISITORS WERE BACK IN THE ICU. NURSE ADVISED FAMILY ONCE AGAIN ONLY ONE VISITOR PER PT AT TIME. WHILE FAMILY WAS STANDING OUTSIDE PT ROOM DISCUSSING PT CONDITION WITH NURSE, A THIRD FAMILY MEMBER WALKED INTO THE PT ROOM. NURSE OBTAINED ATTENTION OF THE THIRD FAMILY MEMBER AND ADVISED ALL 3 FAMILY MEMBERS THAT ONLY ONE PERSON IS ALLOWED BACK IN THE ICU. THE FEMALE VISITOR LEFT FOR THE WAITING ROOM. 2 MALES STAYED IN THE PT ROOM. NURSE ASKED CHARGE NURSE TO INTERVENE AT THIS POINT. CHARGE NURSE HAD ONE MALE EXIT THE ICU AND SPOKE WITH THE LAST MALE IN LENGTH REGARDING VISITATION HOURS. LAST MALE LEFT THE ICU.
--- NOTE | 2019-11-15 19:00 | NUR ---
Report received from off going nurse. Pt is resting in bed with eyes closed at this time. Shift assessment completed, see flowsheet for details. Repositioned for comfort. Oral care performed. Will continue to monitor.
--- NOTE | 2019-11-15 21:00 | NUR ---
Pt is resting in bed with eyes closed at this time. Repositioned for comfort. Oral care performed. Attempting to keep patient clean and dry with towels and constant suctioning. No further needs noted at this time. No s/s of distress. Will continue to monitor.
--- NOTE | 2019-11-15 23:00 | NUR ---
Reassessment completed, see flowsheet for details. Pt is resting in bed. Keeping pt as dry and clean as possible with clean linens and frequent suctioning. Repositioned for comfort. Oral care performed. No further needs noted. Will continue to monitor.
[2019-11-16] VITALS (43 sets, daily range): BP systolic 85–111; BP diastolic 58–80
--- NOTE | 2019-11-16 01:00 | NUR ---
Pt is resting in bed with eyes closed at this time. Continuing to suction mouth frequently as well as trying to keep pt dry. Repositioned for comfort. Oral care performed. No further needs noted. No s/s of distress. Will continue to monitor.
--- NOTE | 2019-11-16 03:00 | NUR ---
Reassessment completed, see flowsheet for details. Pt is laying in bed intubated and sedated. Trying to keep pt clean and dry with frequent suctioning and clean linens. Repositioned for comfort. Oral care performed. No further needs noted. No s/s of distress. Will continue to monitor.
[2019-11-16 04:32] LABS: HEMATOCRIT 27.7 % (36.0-48.0); HEMOGLOBIN 9.3 g/dL (12-16); MCH 30.5 pg (26.0-34.0); MCHC 33.6 g/dL (31.0-37.0); MCV 90.8 fL (80.0-100.0); MEAN PLATELET VOLUME 11.1 fL (7.4-10.4); PLATELET COUNT 436 10x3/uL (130-400); RBC 3.05 10x6/uL (4.00-5.40); RDW 16.8 % (11.5-14.5); WBC 28.3 10x3/uL (4.8-10.8)
--- NOTE | 2019-11-16 05:00 | NUR ---
Pt given a full chg bath and linen change. Repositioned for comfort. Oral care performed. No s/s of distress noted. Will continue to monitor.
--- NOTE | 2019-11-16 07:00 | NUR ---
PT RESTING IN BED, VSS AND WNL. ETT SECURED. NO SIGNS OF DISTRESS NOTED AT THIS TIME. MEJIA CATHETER DRAINING DARK URINE FREELY WITH NO LOOPS. BED ALARM ON. CALL LIGHT WITHIN REACH, WILL CONT TO FOLLOW POC
--- NOTE | 2019-11-16 09:14 | NUR ---
PT RESTING IN BED, VSS AND WNL. HERE. NO NEW ORDERS RECIEVED. BED ALARM ON. WILL CONT TO FOLLOW POC
[2019-11-16 09:27] LABS: EOSINOPHILS 1 % (0-7); LYMPHOCYTES 7 % (15-50); MONOCYTES 7 % (2-11); NEUTROPHILS 84 % (40-80); PLATELET ESTIMATE INCREASED; ROULEAUX OCC
--- NOTE | 2019-11-16 10:20 | NUR ---
2 FAMILY MEMBERS ARRIVED INTO ICU. STAFF ASKED FOR ONE FAMILY MEMBER TO GO BACK TO WAITING ROOM. FAMILY ROLLED EYES AND FEMALE WALKED TO PT ROOM AND MALE WENT BACK TO WAITING ROOM. FEMALE TALKING LOUD TO PT AND STATES, "I KNOW THEY AREN'T TREATING YOU RIGHT HERE [facility]. WE ARE GOING TO GET YOU TRANSFERRED TO [place]." NURSE ASKED FEMALE IF ALL FAMILY HAS ARRIVED SO THAT WE CAN CONTACT . FEMALE STATES EVERYONE IS HERE. NOTIFIED.
--- NOTE | 2019-11-16 10:45 | NUR ---
HERE. FAMILY ASSISTED TO CONFERENCE ROOM. CHARGE NURSE RENITA AND SANIBEL MANAGEMENT SPECIALIST SAT IN ON FAMILY MEETING WITH .
--- NOTE | 2019-11-16 12:00 | NUR ---
PT REPOSITIONED. VSS AND WNL. BED ALARM ON. CALL LIGHT WITHIN REACH, NO SIGNS OF DISTRESS NOTED. WILL CONT TO FOLLOW POC
--- NOTE | 2019-11-16 12:30 | NUR ---
HERE, NURSE NOTIFIED HIM THAT THE LABETALOL GTT WAS OFF FOR NOW. ADVISED NURSE HE WANTS IT D/C OFF THE MAR
--- NOTE | 2019-11-16 12:46 | NUR ---
Nutrition follow-up: Recieved order to start TPN 2/2 pt not tolerating TF at this time. Labs reviewed; Mg, PO2 ordered. Propofol in use RDN will order TPN @ 40 ml/hr. Will not start intralipids 2/2 propofol in use. RDN following.
[2019-11-16 13:23] LABS: MAGNESIUM - SERUM 2.1 mg/dL (1.8-2.4); PHOSPHOROUS 5.1 mg/dL (2.5-4.9)
--- NOTE | 2019-11-16 16:34 | NUR ---
CHG BATH GIVEN. FULL LINEN CHANGE PROVIDED. VSS AND WNL. BED ALARM ON. WILL CONT TO FOLLOW POC
--- NOTE | 2019-11-16 18:03 | NUR ---
NOTIFIED AND THAT PT HR IS ST 120-135. NO NEW ORDERS RECIEVED FROM . STATES TO "KEEP AN EYE ON IT" AND NO NEW ORDERS WERE RECIEVED. PT IS RESTING IN BED WITH NO SIGNS OF DISTRESS NOTED AT THIS TIME, WILL CONT TO FOLLOW POC
--- NOTE | 2019-11-16 19:00 | NUR ---
REPORT RECEIVING OF GOING RN. SEE ASSESSMENT THE PATIENT IS FLOWSHEET PATIENT SEDATED ON THE VENTILATOR. ANASARCA NOTED 8.0 ETT TUBE NOTED 20 AT THE LIP. SEE VENT SETTINGS AND FLOW SHEET. SINUS TACH 120. RIGHT IJ CVL NOTED. SEE IV FLOWSHEET FOR DRIPS. MID ABDOMEN INCISION CLEAN DRY INTACT. LEFT ABDOMEN TRYO DRAIN NOTED. GREEN PURULENT DRAINAGE NOTED. COLOSTOMY BAG NOTED. STOMA RED AND MOIST. MEJIA CATHETER NOTED WITH AMY URINE. PATIENT'S AT THE PATIENT'S BEDSIDE. PATIENT'S SLURRING HIS WORDS AND SMELLS OF ALCOHOL. PATIENT CALM AND COOPERATIVE AT THIS TIME. PATIENT HILLARY APPEARS TO HAVE URINATED ON HIMSELF. I ASKED IF HE WOULD LIKE TO CALL THE SISTER AND THE PATIENT IS TODAY STATED NO. PATIENT VITAL SIGNS STABLE. CALL LIGHT IN REACH WE WILL CONTINUE PLAN OF CARE
--- NOTE | 2019-11-16 19:00 | NUR ---
REPORT RECEVIED FROM THE OFF GOING RN. SEE ASSESMENT IN THE PTS FLOW SHEET. NSR ON THE MONITOR. PT NOTED TO HAVE A PPM IN LEFT UPPER CHEST. PT HAS A LIFE VEST (DEFIB) ON. IT IS THE PTS PERSONAL LIFE VEST. PT NOTED TO HAVE BRUSINGS ABOVE HIS RIGHT EYE BROWN AND LEFT SHOULDER. PT DENIES PAIN AT THIS TIME. CALL LIGHT IN REACH. WILL CONT POC.
--- NOTE | 2019-11-16 21:00 | NUR ---
SPOKE WITH VARUN ABOUT HILLARY. EXPLAINED TO HER THAT HE APPEARS VERY INTOXICATED AND POSSBILY URINATED ON HIMSELF. HILLARY IS NOT IN THE ROOM OR IN THE WAITING ROOM. VARUN STATED SHE WILL CALL AND CHECK ON HIM AT HIS HOUSE.
--- NOTE | 2019-11-16 22:03 | NUR ---
SPOKE WITH DR SIMS ABOUT THE PT HAVING MULTIVIT ORDER VIA J TUBE, THE PT HAVING A TEMP OF 100.6 AND PT BEING TACHYCADIC. DC MULTIVIT, ORDER IV TYLENOL AND GIVE 1L NS BOLUS X1. WILL CONT POC.
[2019-11-17] VITALS (24 sets, daily range): BP systolic 98–149; BP diastolic 67–96
--- NOTE | 2019-11-17 | NUR ---
ABD DRESSING CHANGE. TROY DRAIN'D ABOUT 180ML OF GREEN PURULENT LOOKING DRAINAGE. J TUBE NOTED TO HAVE GREEN SECREATIONS OOZING FROM ABOUT THE J TUBE SITE. MIDLINE ABD INCISION WOUND BED PINK AND MOIST. WOUND PACKED AND ABD PLACED OVER SITES. PT TOLERATED WELL WILL CONT POC.
--- NOTE | 2019-11-17 01:11 | NUR ---
FULL CHD BATH GIVEN AND LINENS CHANGED. PT TOELRATED WELL. CALL LIGHT IN REACH. WILL CONT POC.
--- NOTE | 2019-11-17 03:00 | NUR ---
REASSESSMENT COMPLETED. SEE FLOW SHEET.
--- NOTE | 2019-11-17 05:00 | NUR ---
VSS. PT REPOSITIONED. CALL LIGHT IN REACH. WILL CONT POC.
[2019-11-17 05:32] LABS: HEMATOCRIT 25.8 % (36.0-48.0); HEMOGLOBIN 8.4 g/dL (12-16); MCH 29.7 pg (26.0-34.0); MCHC 32.6 g/dL (31.0-37.0); MCV 91.2 fL (80.0-100.0); MEAN PLATELET VOLUME 10.5 fL (7.4-10.4); PLATELET COUNT 438 10x3/uL (130-400); RBC 2.83 10x6/uL (4.00-5.40); RDW 16.5 % (11.5-14.5)
[2019-11-17 05:43] LABS: WBC 15.4 10x3/uL (4.8-10.8)
[2019-11-17 06:08] LABS: ALBUMIN 1.2 g/dL (3.4-5.0); ALKALINE PHOSPHATASE 167 U/L (30-120); ALT (SGPT) 40 U/L (10-68); BILIRUBIN - TOTAL 0.97 mg/dL (0.2-1.3); CALC OSMOLALITY 270 mosm/kg (275-300); CALCIUM 7.7 mg/dL (8.5-10.1); CARBON DIOXIDE 22.7 mmol/L (21.0-32.0); CHLORIDE - SERUM 103 mmol/L (98-107); CREATININE - SERUM 0.3 mg/dL (0.6-1.3); PROTEIN - SERUM 5.6 g/dL (6.4-8.2); SODIUM 135 mmol/L (136-145); UREA NITROGEN 7 mg/dL (7-18); eGFR NON AFRICAN AMERICAN > 90 mL/min (90-120)
[2019-11-17 06:09] LABS: GLUCOSE 147 mg/dL (74-106)
[2019-11-17 07:50] LABS: MAGNESIUM - SERUM 2.1 mg/dL (1.8-2.4); PHOSPHOROUS 3.7 mg/dL (2.5-4.9)
--- NOTE | 2019-11-17 09:44 | NUR ---
Nutrition follow-up: Intubated, sedated with propofol TPN @ 40 ml/hr Labs reviewed; TPN formula adjusted RDN following.
[2019-11-17 10:19] LABS: ANISOCYTOSIS OCC; HYPOCHROMASIA OCC; LYMPHOCYTES 9 % (15-50); MONOCYTES 11 % (2-11); NEUTROPHILS 75 % (40-80); PLATELET ESTIMATE INCREASED
--- NOTE | 2019-11-17 19:00 | NUR ---
BEDSIDE REPORT AND SHIFT ASSESSMENT COMPLETE, SEE FLOWSHEET. VSS. SINUS TACHY ON MONITOR, RATE 120'S. ABD INCISION DRESSING OOZING, GREENISH DRAINAGE. DRESSING CHANGED. ABD FIRM, DISTENDED. L ABD TROY DRAIN COMPRESSED, GREEN DRAINAGE NOTED. R IJ CVL PATENT, SEE IV FLOWSHEET. PT SEDATED, FOLLOWS COMMANDS AND OPENS EYES. CHG BATH, MEJIA CARE, AND LINEN CHANGE COMPLETE. REPOSITIONED FOR COMFORT. WILL MONITOR.
--- NOTE | 2019-11-17 22:00 | NUR ---
PT AGITATED, MOVING AROUND IN BED, PULLING AT RESTRAINTS. FENTANYL TITRATED PER OCT.
--- NOTE | 2019-11-17 23:00 | NUR ---
REASSESSMENT COMPLETE, SEE FLOWSHEET.
[2019-11-18] VITALS (14 sets, daily range): BP systolic 97–144; BP diastolic 60–90
--- NOTE | 2019-11-18 00:40 | NUR ---
PT AGITATED, PULLING AT TUBES. FENTANYL TITRATED.
--- NOTE | 2019-11-18 03:00 | NUR ---
REASSESSMENT COMPLETE, SEE FLOWSHEET.
[2019-11-18 06:37] LABS: ALBUMIN 1.2 g/dL (3.4-5.0); ALKALINE PHOSPHATASE 179 U/L (30-120); ALT (SGPT) 29 U/L (10-68); BILIRUBIN - TOTAL 0.77 mg/dL (0.2-1.3); CALC OSMOLALITY 265 mosm/kg (275-300); CALCIUM 7.7 mg/dL (8.5-10.1); CARBON DIOXIDE 24.2 mmol/L (21.0-32.0); CHLORIDE - SERUM 102 mmol/L (98-107); CREATININE - SERUM 0.4 mg/dL (0.6-1.3); GLUCOSE 129 mg/dL (74-106); POTASSIUM - SERUM 3.3 mmol/L (3.5-5.1); PROTEIN - SERUM 5.7 g/dL (6.4-8.2); SODIUM 133 mmol/L (136-145); UREA NITROGEN 7 mg/dL (7-18); eGFR NON AFRICAN AMERICAN > 90 mL/min (90-120)
--- NOTE | 2019-11-18 07:00 | NUR ---
ASSESSMENT COMPLETE PER FLOWSHEET.
[2019-11-18 07:37] LABS: MAGNESIUM - SERUM 1.7 mg/dL (1.8-2.4); PHOSPHOROUS 3.1 mg/dL (2.5-4.9)
[2019-11-18 08:02] LABS: BASOPHILS 0.1 % (0-2); HEMOGLOBIN 7.6 g/dL (12-16); IMMATURE GRANULOCYTES 1.2 % (0-5); LYMPHOCYTES 10.4 % (15-50); MCH 29.1 pg (26.0-34.0); MCHC 31.7 g/dL (31.0-37.0); MEAN PLATELET VOLUME 10.8 fL (7.4-10.4); MONOCYTES 17.2 % (2-11); NEUTROPHILS 69.1 % (40-80); PLATELET COUNT 651 10x3/uL (130-400); RBC 2.61 10x6/uL (4.00-5.40); RDW 16.5 % (11.5-14.5)
--- NOTE | 2019-11-18 08:59 | NUR ---
Nutrition follow-up: Chart reviewed; labs reviewed Na, Mg low TPN formula adjusted Continue TPN @ 40 ml/hr RDN following.
--- NOTE | 2019-11-18 10:30 | NUR ---
DR HONEYCUTT AND BETHANY IN CONFERENCE ROOM TALKING TO FAMILY ABOUT END OF LIFE CARE. FAMILY ASKING QUESTIONS. PHYSICIANS ANSWER ALL QUESTIONS ADDRESSED.
--- NOTE | 2019-11-18 10:46 | NUR ---
spoke with trang
--- NOTE | 2019-11-18 11:10 | NUR ---
EXTUBATED TO 5 LITER O2 PER NC. FAMILY AT HER SIDE.
--- NOTE | 2019-11-18 15:00 | NUR ---
FAMILY AT BEDSIDE TO LEARN HOW TO EMPTY DRAINS, MEJIA AND DO DRESSING CHANGE.
--- NOTE | 2019-11-18 15:30 | NUR ---
FAMILY STATES THEY ARE NOT READY TO TAKE PT HOME DUE TO NOT HAVING ALL THE EQUIPMENT AT HOME WILL DISCHARGE IN AM. DR HONEYCUTT NOTIFIED OK TO TRANSFER TO FLOOR.
--- NOTE | 2019-11-18 15:30 | NUR ---
HOSPICE ACCEPTED WILL DISCHARGE HOME.
--- NOTE | 2019-11-18 16:00 | NUR ---
R IJ DOUBLE LUMEN DCD.
--- NOTE | 2019-11-18 17:20 | NUR ---
TRANSFER TO ROOM 2238. REPORT GIVEN TO KATHY NELSON.
--- NOTE | 2019-11-18 19:21 | MORECARE ---
CASE MANAGEMENT DISCHARGE SUMMARY PATIENT: DIAMOND VALLE UNIT: [id number] ADM DATE: 10/29/19 AGE: 53 : 61 SEX: F ROOM/BED: D.2238 AUTHOR: MARC,DOC PHYSICIAN: REFERRING PHYSICIAN: OSITO KEBEDE MD DATE OF SERVICE: 11/18/19 Discharge Plan Patient Name: DIAMOND VALLE Facility: [facility]:[place] : 1965 Planned Disposition: Anticipated Discharge Date: Discharge Date: Expected LOS: Initial Reviewer: [email or web address] Initial Review Date: 11/04/2019 Generated: 11/18/19 8:20 pm Comments DCP- Discharge Planning Updated by [email or web address]: Trish Santana on 11/18/19 6:[address] CM notified that patient is going to be terminally extubated today. Family requested hospice. [facility] notified and orders sent. [facility] plans to admit for [facility] but family has decided that they want to bring her home but not until am. [facility] will be delivering DME needs to the home. CM will continue to follow and assist as needed with discharge planning / needs. DCP- Discharge Planning Updated by [email or web address]: Trish Santana on 11/08/19 6:[address] CM received a call from a family member that was very hostile requesting patient to be transferred to [facility] for in their opinion higher level of care. Later family member was noted to be daughter -n law (Poli Fay [phone]) She was demanding patient be transferred and relayed that patient is not being taken care of by nursing and physicians. After CM got off phone CM spoke with Dr. Rangel and she stated that it would be a lateral move not higher level of care. CM contacted Marilee PanTier And Detonator of request for transfer. CM was trying to find out with whom the decision maker is within family. Patient has children and siblings but she also has a man claiming to be her Isra Van. Eldest Henrry name is Reyes Valle [phone]? with whom is stated to be a paraplegic. Isra Van (spouse) and sister Gwen Valle both of which are listed as contacts and have password stated they did not want patient transferred to [facility]. Scarlett Sprague witness this conversation with Isra. Patient was able to shake her head when asked if she wanted to transfer. CM will continue to follow and assist as needed with discharge planning / needs. DCP- Discharge Planning Updated by [email or web address]: Trish Santana on 11/04/19 6:[address] Patient Name: DIAMOND VALLE Admission Status: ER Accout number: [id number] Admission Date: 10-29-2019 : 1965 Admission Diagnosis: Attending: GROVER KEBEDE Current LOS: 6 Anticipated DC Date: Planned Disposition: Primary Insurance: [facility] MEDICARE SOLUTIONS Discharge Planning Comments: CM met with patient's ? Isra Van to complete initial dc planning assessment. Patient is currently on vent sedated. CM educated patient on the CM role and verbal consent given by patient to complete assessment. Patient lives at home with her where she is independent with her care. At discharge patient plans to return home and feels this is a safe discharge. CM discussed availability of home health, rehab services, and medical equipment. Patient denied known discharge needs at this time. Uncertain of discharge disposition. MD to discuss with family comfort care / hospice. CM will continue to follow and will assist as needed with dc plans/needs. Fraud Analyst: Trish Santana DCP- Discharge Planning Updated by [id number]: Susi Leo on 11/01/19 11:[address] ATTEMPTED TO SEE PATIENT FOR INITIAL ASSESSMENT, BUT SHE WAS IN A PROCEDURE WILL TRY AGAIN AT A LATER TIME DCPIA - Discharge Planning Initial Assessment Updated by [email or web address]: Trsih Santana on 11/04/19 7:00 pm * How many steps to enter\exit or inside your home? 2-3 * PCP unknown * [facility] * Preadmission Environment Home with Family * ADLs Independent * Equipment None * List name and contact numbers for known caregivers / representatives who currently or will assist patient after discharge: ISRA VAN - ?SPOUSE- [phone] GWEN VALLE - SISTER - [phone] * Verbal permission to speak to the caregivers and representatives has been obtained from the patient. N/A * Community resources currently utilized None * Additional services required to return to the preadmission environment? No * Can the patient safely return to the preadmission environment? Yes * Has this patient been hospitalized within the prior 30 days at any hospital? No Last DP export: 11/08/19 6:17 p Patient Name: DIAMOND VALLE Page [id number] at 1920 All edits/amendments must be made on the electronic document DICTATION DATE: 11/18/191919 SAND CAR WORKER: KATHY 11/18/191919 RPT#: [id number] DC DATE: STATUS: ADM IN [facility] [address] [place] [address] END OF REPORT
--- NOTE | 2019-11-18 20:30 | NUR ---
LEFT J-TUBE DRESSING SOAKED WITH GREEN DRAINAGE. LEAKING COPIOUS AMOUNTS FROM J-TUBE SITE, NO DRAINAGE IN TUBE. CHANGED DRAIN SITE DRESSING AND MIDLINE INCISION DRESSING WET/DRY WITH ICU NURSE OMAR GARCÍA. COMPLETE BED AND GOWN CHANGE. DNR STATUS CONFIRMED AND ENTERED INTO COMPUTER BY OMAR GARCÍA. GAVE MORPHINE 4 MG IV PUSH FOR PAIN 10/10 BEFORE AND AFTER DRESSING/BED CHANGE. PT'S INQUIRED ABOUT PT NOT RECEIVING NUTRITION THROUGH IV. TEACHING ON COMFORT CARE. NO OTHER NEEDS. WILL CONTINUE TO MONITOR.
--- NOTE | 2019-11-18 20:31 | NUR ---
YEHUDA FROM [facility] CALLED AND STATED THERE WAS NO DNR ORDER. DR HONEYCUTT CALLED AND STATED THAT HE AND DR SIMS HAD A MEETING WITH THE FAMILY AND ALL AGREED FOR HOSPICE AND DNR STATUS. T.O FROM DR HONEYCUTT FOR DNR.
--- NOTE | 2019-11-18 21:01 | NUR ---
SPOKE WITH DR SIMS. HE ALSO STATED THE PT IS TO BE ON HOSPICE WITH A THAT THE FAMILY AGREED TO A DNR STATUS.
--- NOTE | 2019-11-19 00:30 | NUR ---
GREEN DRAINAGE FROM J-TUBE SITE LEAKING THROUGH DRESSING. CLEANED PT AND CHANGED SOILED DRESSING. CHANGED BED PADS. GAVE MORPHINE 4 MG IV PUSH FOR PAIN 10/10. NO OTHER NEEDS. WILL REASSESS AND CONTINUE TO MONITOR.
[2019-11-19 04:00] VITALS: BP 129/77
--- NOTE | 2019-11-19 06:00 | NUR ---
REINFORCED DRESSING AT J-TUBE SITE AND CHANGED PT'S GOWN. GAVE MORPHINE 4 MG IV PUSH FOR 10/10 PAIN. NO OTHER NEEDS. WILL REASSESS AND CONTINUE TO MONITOR.
--- NOTE | 2019-11-19 07:57 | NUR ---
PT RESTING QUIETLY IN BED. PT REPORTS SEVERE PAIN TO ABDOMEN 10/10 AT THIS TIME. MORPHINE ADMINISTERED PER MD ORDERS. PT IS VERY HOARSE SOUNDING AND DIFFICULT TO UNDERSTAND. DRESSING TO ABDOMEN C/D/I AT THIS TIME. COLOSTOMY WITH SMALL AMOUNT OF GREENISH, BROWN STOOL. JTUBE INTACT WITH SCANT AMOUNT OF OUTPUT AT THIS TIME. TROY INTACT WITH SCANT AMOUNT OF LIQUID GREEN DRAINAGE. F/C PATENT TO GRAVITY AND DRAINING. O2 @ 3.5L IN PLACE. PT DENIES FURTHER NEEDS. CL WITHIN REACH. ENCOURAGED TO CALL WITH NEEDS. CONTINUE POC
[2019-11-19 09:29] VITALS: BP 117/66
--- NOTE | 2019-11-19 09:50 | NUR ---
CONTACTED OLIPMIA MOLINA REGARDING ORDERS FOR EKG AND TELEMETRY. DISCUSSED WITH BEEF CATTLE FARM WORKER THAT PT WAS DNR AND WAS AWAITING D/C FOR DISCHARGE HOME ON HOSPICE. TRACY REPORTS THAT SHE WILL PUT D/C ORDER IN NOW FOR DISCHARGE HOME.
--- NOTE | 2019-11-19 12:41 | NUR ---
AMBULANCE HERE FOR TRANSFER TO HOME FOR HOSPICE. PT CARE PROVIDED. DRESSINGS CHANGED TO ABDOMEN DUE TO CONTINUOUS SEEPING OF GREEN DRAINAGE FROM JTUBE SITE. REINFORCED SITES WITH 4X4'S GUAZE AND TAPE. SALINE LOC DISCONTINUED FROM LEFT AC.
--- NOTE | 2019-11-19 20:33 | MORECARE ---
CASE MANAGEMENT DISCHARGE SUMMARY PATIENT: DIAMOND VALLE UNIT: [id number] ADM DATE: 10/29/19 AGE: 53 : 61 SEX: F ROOM/BED: D.2238 AUTHOR: MARC,DOC PHYSICIAN: REFERRING PHYSICIAN: OSITO KEBEDE MD DATE OF SERVICE: 11/19/19 Discharge Plan Patient Name: DIAMOND VALLE Facility: [facility]:[place] : 1965 Planned Disposition: Anticipated Discharge Date: Discharge Date: 11/19/2019 Expected LOS: Initial Reviewer: [email or web address] Initial Review Date: 11/04/2019 Generated: 11/19/19 9:33 pm Comments DCP- Discharge Planning Updated by [email or web address]: Trish Santana on 11/18/19 6:[address] CM notified that patient is going to be terminally extubated today. Family requested hospice. [facility] notified and orders sent. [facility] plans to admit for [facility]IP but family has decided that they want to bring her home but not until am. [facility] will be delivering DME needs to the home. CM will continue to follow and assist as needed with discharge planning / needs. DCP- Discharge Planning Updated by [id number]: Trish Santana on 11/08/19 6:[address] CM received a call from a family member that was very hostile requesting patient to be transferred to [facility] for in their opinion higher level of care. Later family member was noted to be daughter -n law (Poli Fay [phone]) She was demanding patient be transferred and relayed that patient is not being taken care of by nursing and physicians. After CM got off phone CM spoke with Dr. Rangel and she stated that it would be a lateral move not higher level of care. CM contacted Marilee PanUser Experience Researcher of request for transfer. CM was trying to find out with whom the decision maker is within family. Patient has children and siblings but she also has a man claiming to be her Hillary Van. Eldest Henrry name is Reyes Valle [phone]? with whom is stated to be a paraplegic. Hillary Van (spouse) and sister Varun Valle both of which are listed as contacts and have password stated they did not want patient transferred to [facility]. Goldfield Sprague witness this conversation with Hillary. Patient was able to shake her head when asked if she wanted to transfer. CM will continue to follow and assist as needed with discharge planning / needs. DCP- Discharge Planning Updated by [email or web address]: Trish Santana on 11/04/19 6:[address] Patient Name: DIAMOND VALLE Admission Status: ER Accout number: [id number] Admission Date: 10-29-2019 : 1965 Admission Diagnosis: Attending: GROVER KEBEDE Current LOS: 6 Anticipated DC Date: Planned Disposition: Primary Insurance: [facility] MEDICARE SOLUTIONS Discharge Planning Comments: CM met with patient's ? Hillary Van to complete initial dc planning assessment. Patient is currently on vent sedated. CM educated patient on the CM role and verbal consent given by patient to complete assessment. Patient lives at home with her where she is independent with her care. At discharge patient plans to return home and feels this is a safe discharge. CM discussed availability of home health, rehab services, and medical equipment. Patient denied known discharge needs at this time. Uncertain of discharge disposition. MD to discuss with family comfort care / hospice. CM will continue to follow and will assist as needed with dc plans/needs. Wrist Hemmer: Trish Santana DCP- Discharge Planning Updated by [email or web address]: Susi Leo on 11/01/19 11:[address] ATTEMPTED TO SEE PATIENT FOR INITIAL ASSESSMENT, BUT SHE WAS IN A PROCEDURE WILL TRY AGAIN AT A LATER TIME DCPIA - Discharge Planning Initial Assessment Updated by [email or web address]: Trish Santana on 11/04/19 7:00 pm * How many steps to enter\exit or inside your home? 2-3 * PCP unknown * [facility] * Preadmission Environment Home with Family * ADLs Independent * Equipment None * List name and contact numbers for known caregivers / representatives who currently or will assist patient after discharge: HILLARY VAN - ?SPOUSE- [phone] VARUN VALEL - SISTER - [phone] * Verbal permission to speak to the caregivers and representatives has been obtained from the patient. N/A * Community resources currently utilized None * Additional services required to return to the preadmission environment? No * Can the patient safely return to the preadmission environment? Yes * Has this patient been hospitalized within the prior 30 days at any hospital? No Last DP export: 11/18/19 6:21 p Patient Name: DIAMOND VALLE Page [id number] at 2032 All edits/amendments must be made on the electronic document DICTATION DATE: 11/19/192032 ENGINEERING INTERN: KATHY 11/19/192032 RPT#: [id number] DC DATE:11/19/19 STATUS: DIS IN [facility] [address] [place] [address] END OF REPORT
== END 2019-11-19 12:43 | disposition home health service (06) | DRG 329 ==
LOC: D.ER 06:55 → D.ICU 09:22 → D.MS 09:22 → D.ICU 11-03 19:57 → D.MS 11-18 17:28
PROVIDERS: Family Medicine; Internal Medicine Nephrology; Internal Medicine Pulmonary Disease; Surgery; ADMIT Emergency Medicine; ATTEND Emergency Medicine
PROC: 0DBL8ZX Excision of Transverse Colon, Via Natural or Artificial Opening Endoscopic, Diagnostic (ICD-10-PCS; 2019-11-01)
PROC: 0DBM8ZZ Excision of Descending Colon, Via Natural or Artificial Opening Endoscopic (ICD-10-PCS; 2019-11-01)
PROC: 0DBP8ZZ Excision of Rectum, Via Natural or Artificial Opening Endoscopic (ICD-10-PCS; 2019-11-01)
PROC: 5A1955Z Respiratory Ventilation, Greater than 96 Consecutive Hours (ICD-10-PCS; 2019-11-03)
PROC: 0BH17EZ Insertion of Endotracheal Airway into Trachea, Via Natural or Artificial Opening (ICD-10-PCS; 2019-11-03)
PROC: 2W13X6Z Compression of Abdominal Wall using Pressure Dressing (ICD-10-PCS; 2019-11-03)
PROC: 0DBL0ZZ Excision of Transverse Colon, Open Approach (ICD-10-PCS; 2019-11-03 13:15)
PROC: 07TP0ZZ Resection of Spleen, Open Approach (ICD-10-PCS; 2019-11-03 13:15)
PROC: 0DHA8UZ Insertion of Feeding Device into Jejunum, Via Natural or Artificial Opening Endoscopic (ICD-10-PCS; 2019-11-04)
PROC: 0DJ08ZZ Inspection of Upper Intestinal Tract, Via Natural or Artificial Opening Endoscopic (ICD-10-PCS; 2019-11-04)
PROC: 0D1N4Z4 Bypass Sigmoid Colon to Cutaneous, Percutaneous Endoscopic Approach (ICD-10-PCS; principal; 2019-11-04 10:45)
PROC: 5A1955Z Respiratory Ventilation, Greater than 96 Consecutive Hours (ICD-10-PCS; 2019-11-09)
PROC: 0BH17EZ Insertion of Endotracheal Airway into Trachea, Via Natural or Artificial Opening (ICD-10-PCS; 2019-11-09)
PROC: 0B9J8ZX Drainage of Left Lower Lung Lobe, Via Natural or Artificial Opening Endoscopic, Diagnostic (ICD-10-PCS; 2019-11-11)
DX: C18.4 Malignant neoplasm of transverse colon (principal); R65.21 Severe sepsis with septic shock; J95.821 Acute postprocedural respiratory failure; A41.9 Sepsis, unspecified organism; E87.1 Hypo-osmolality and hyponatremia; K56.7 Ileus, unspecified; D75.89 Other specified diseases of blood and blood-forming organs; I10 Essential (primary) hypertension; E88.89 Other specified metabolic disorders; K57.30 Diverticulosis of large intestine without perforation or abscess without bleeding; K76.0 Fatty (change of) liver, not elsewhere classified; M54.9 Dorsalgia, unspecified; E87.6 Hypokalemia; D64.9 Anemia, unspecified; Z85.028 Personal history of other malignant neoplasm of stomach; Z86.73 Personal history of transient ischemic attack (TIA), and cerebral infarction without residual deficits

== ENCOUNTER 2019-11-21 14:53 | Observation (INO) | payer MEDICARE, MEDICAID ==
[~2019-11-21] VITALS: Ht 142.2 cm; Wt 45.4 kg
--- NOTE | 2019-11-21 14:55 | NUR ---
[address] UPON ARRIVAL. ABD DRSG IN PLACE. BULB DRAIN AND DRAIN TO [id number] NOTED TO LT SIDE OF ABD. BILE COLORED DRAINAGE NOTED TODRAINS AND ON DRSG. COLOSTOMY NOTED TO RT SIDE OF ABDOMEN.
[2019-11-21 15:30] VITALS: BP 128/87
[2019-11-21 16:09] LABS: CALC OSMOLALITY 281 mosm/kg (275-300); CALCIUM 8.9 mg/dL (8.5-10.1); CARBON DIOXIDE 21.2 mmol/L (21.0-32.0); CHLORIDE - SERUM 105 mmol/L (98-107); CREATININE - SERUM 0.5 mg/dL (0.6-1.3); GLUCOSE 101 mg/dL (74-106); POTASSIUM - SERUM 3.1 mmol/L (3.5-5.1); SODIUM 143 mmol/L (136-145); UREA NITROGEN 5 mg/dL (7-18); eGFR NON AFRICAN AMERICAN > 90 mL/min (90-120)
[2019-11-21 16:18] LABS: ALBUMIN 1.6 g/dL (3.4-5.0); ALKALINE PHOSPHATASE 240 U/L (30-120); ALT (SGPT) 46 U/L (10-68); AMYLASE - SERUM 61 U/L (25-115); BILIRUBIN - TOTAL 0.96 mg/dL (0.2-1.3); PROTEIN - SERUM 7.3 g/dL (6.4-8.2)
[2019-11-21 16:21] LABS: HEMATOCRIT 30.3 % (36.0-48.0); HEMOGLOBIN 9.7 g/dL (12-16); MCH 29.8 pg (26.0-34.0); MCV 92.9 fL (80.0-100.0); MEAN PLATELET VOLUME 10.2 fL (7.4-10.4); PLATELET COUNT 791 10x3/uL (130-400); RBC 3.26 10x6/uL (4.00-5.40); RDW 16.6 % (11.5-14.5)
[2019-11-21 16:24] LABS: LIPASE 46 U/L (73-393); TROPONIN-I < 0.017 ng/mL (0.000-0.060)
[2019-11-21 16:30] VITALS: BP 164/96
[2019-11-21 16:35] LABS: LYMPHOCYTES 11 % (15-50); MONOCYTES 12 % (2-11); NEUTROPHILS 69 % (40-80); PLATELET ESTIMATE INCREASED
[2019-11-21 16:36] LABS: TOXIC GRANULATION 3+; VACUOLES 1+
[2019-11-21 16:37] LABS: PLATELET MORPHOLOGY GIANT PLTS PRESENT
--- NOTE | 2019-11-21 16:45 | NUR ---
URINE SENT TO THE LAB.
[2019-11-21 16:51] LABS: BILIRUBIN NEGATIVE (NEGATIVE); GLUCOSE NEGATIVE (NEGATIVE); KETONE LARGE mg/dL (NEGATIVE); NITRITE NEGATIVE (NEGATIVE); SPECIFIC GRAVITY 1.015 (1.005-1.020); UROBILINOGEN NORMAL (NORMAL)
[2019-11-21 17:30] VITALS: BP 149/91
[2019-11-21 18:30] VITALS: BP 136/78
--- NOTE | 2019-11-21 18:30 | NUR ---
RECEIVED CALL FROM PT SISTER. REPORT OF SITUATION GIVEN. QUESTIONED HER ABOUT HOSPICE. SHE STATES THE PT SON IS THE ONE WHO HAD HANDLED HOSPICE SITUATION. SHE PROVIDED HIS PHONE NUMBER: SHORTY VALLE [phone]. DISCUSSED PT SITUATION WITH HIM REGARDING HOSPICE OR PAIN CONTROL AND ANTIBIOTICS FOR POSSIBLE INFECTION. HE STATES HE WANTS PT ADMITTED AND TREATED FOR PAIN AND TO RECEIVE ANTIBIOTICS. ERP INFORMED.
[2019-11-21 19:30] VITALS: BP 145/85
--- NOTE | 2019-11-21 20:52 | NUR ---
[facility] ALERT.ORIETNED WITH NO COMPALITNS AT PRESENT. IV TO LAC INTACT WIHTOUT REDNESS OR EDEMA NOTED. COLOSTOMY NOTED TO RIGHT ABD TROY DRAIN TO LEFT ABD WITH GREEN TINGED DRAINAGE NOTED. DRAIN TUBE CONNECTED TO FOEY BAG TO LEFT ABD WITH GREEN TINGED DRAINAGE NOTED. DRESSING INTACT. MEJIA PATENT AND DRAINING AMY URINE. CL IN REACH
--- NOTE | 2019-11-21 20:57 | NUR ---
REFUSES NON SKID SOCKS AND SCD.
[2019-11-21 21:30] VITALS: BP 119/54
--- NOTE | 2019-11-21 21:50 | NUR ---
DR HONEYCUTT NOTIFIED OF HEART RATE 149-152, ELEVATED TEMP 99-100.6 O2 SAT @ 88%. PLACED ON 3L PER O2 PER NC PER RT. NEW ORDER FOR MEROPENEM 1 GM Q 8 HR AND IV FLUIDS CHANGED TO D5NS @ 75, WILL CONTINUE TO MONITOR.
[2019-11-22] VITALS (7 sets, daily range): BP systolic 101–135; BP diastolic 63–85; Ht 142.2 cm; Wt 45.4 kg
[2019-11-22 05:29] LABS: CALC OSMOLALITY 287 mosm/kg (275-300); CALCIUM 8.4 mg/dL (8.5-10.1); CARBON DIOXIDE 23.1 mmol/L (21.0-32.0); CHLORIDE - SERUM 109 mmol/L (98-107); CREATININE - SERUM 0.5 mg/dL (0.6-1.3); GLUCOSE 129 mg/dL (74-106); SODIUM 145 mmol/L (136-145); UREA NITROGEN 5 mg/dL (7-18); eGFR NON AFRICAN AMERICAN > 90 mL/min (90-120)
[2019-11-22 05:45] LABS: POTASSIUM - SERUM 2.8 mmol/L (3.5-5.1)
[2019-11-22 06:01] LABS: BASOPHILS 1.2 % (0-2); EOSINOPHILS 0.4 % (0-7); HEMATOCRIT 25.5 % (36.0-48.0); HEMOGLOBIN 8.2 g/dL (12-16); LYMPHOCYTES 8.1 % (15-50); MCH 29.7 pg (26.0-34.0); MCHC 32.2 g/dL (31.0-37.0); MCV 92.4 fL (80.0-100.0); MEAN PLATELET VOLUME 10.2 fL (7.4-10.4); MONOCYTES 16.1 % (2-11); NEUTROPHILS 69.2 % (40-80); PLATELET COUNT 625 10x3/uL (130-400); RBC 2.76 10x6/uL (4.00-5.40); RDW 17.2 % (11.5-14.5); WBC 24.9 10x3/uL (4.8-10.8)
--- NOTE | 2019-11-22 07:09 | NUR ---
PT MIDLINE DRESSING CHANGED PER PM NURSE DUE TO DRAINAGE, OPEN SITES PACKED, 4X4 PLACED OVER SITE ALONG WITH ABD PAD, PT ASKING FOR ICE, AT THIS TIME PT IS NPO, ADVISED WE ARE WAITING FURTHER INSTRUCTIONS FROM DOCTORS. PT VERBALIZED UNDERSTANDING. CONTINUE WITH PLAN OF CARE. PT K+ IS 2.8 PT IS CURRENTLY NPO NO EP ON OCT. AWAITING FURTHER ORDERS AT THIS TIME
--- NOTE | 2019-11-22 12:05 | NUR ---
ASSISTED MARKETING CONTENT MANAGER WITH CHIDI COLOSTOMY BAG TO PT SITE THAT IS LEAKING, PT ASKED FOR PAIN MEDICATION, ADVISED JUST ADMINISTERED AT 11 UNABLE TO GIVE ANY MORE, PT DECLINED HOSPICE, UNABLE TO DO COMFORT CARE, WILL CONTINUE WITH PLAN OF CARE
--- NOTE | 2019-11-22 13:42 | NUR ---
GREEN DRAINAGE IS NOTED AROUND JTUBE ON LEFT ABDOMEN. SKIN HAS BECOME RED AND TENDER. THERE ARE SEVERAL SMALL OPEN AREAS AROUND JTUBE SITE. CLEANSED WELL AND SKIN PROTECTANT, STOMA POWDER AND PASTE APPLIED. OSTOMY WAFER AND BAG APPLIED. DRAINAGE NOTED IN BAG. WOUND CARE WILL MONITOR.
--- NOTE | 2019-11-22 14:58 | NUR ---
ADMINISTERED PRN PAIN MEDICATION, PT HAS IV ABX RUNNING WELL JTUBE SITE CLEAN, DRY AND INTACT CONTINUE WITH PLAN OF CARE
--- NOTE | 2019-11-22 18:15 | NUR ---
LYING IN BED,WITHOUT SIGNS OF DISTRESS AT PRESENT.
--- NOTE | 2019-11-22 21:00 | NUR ---
SUPINE IN BED, A&O X 4. DRESSINGS AND PACKED WOUNDS TO ABDOMEN C/D/I. AIR IN OSTOMY BAG TO LEFT ABDOMEN LET OUT. NO DRAINAGE IN OSTOMY BAG ON RIGHT SIDE OF ABDOMEN. LEFT ABDOMEN TROY DRAIN COMPRESSED. WHITISH-YELLOW DRAINAGE NOTED. MEJIA IN PLACE, BLOODY URINE NOTED. CONTINUE PLAN OF CARE.
[2019-11-23] VITALS: BP 103/64
[2019-11-23 04:00] VITALS: BP 114/62
--- NOTE | 2019-11-23 04:46 | NUR ---
I have reviewed this patient and I concur with the Shift Assessment completed by the Licensed Practical Nurse today this shift.
[2019-11-23 05:43] LABS: ALBUMIN 1.2 g/dL (3.4-5.0); ALKALINE PHOSPHATASE 185 U/L (30-120); ALT (SGPT) 39 U/L (10-68); BILIRUBIN - TOTAL 0.81 mg/dL (0.2-1.3); CALC OSMOLALITY 288 mosm/kg (275-300); CALCIUM 7.7 mg/dL (8.5-10.1); CARBON DIOXIDE 25.8 mmol/L (21.0-32.0); CHLORIDE - SERUM 110 mmol/L (98-107); CREATININE - SERUM 0.5 mg/dL (0.6-1.3); GLUCOSE 132 mg/dL (74-106); PROTEIN - SERUM 6.3 g/dL (6.4-8.2); SODIUM 145 mmol/L (136-145); UREA NITROGEN 6 mg/dL (7-18); eGFR NON AFRICAN AMERICAN > 90 mL/min (90-120)
[2019-11-23 05:53] LABS: POTASSIUM - SERUM 2.7 mmol/L (3.5-5.1)
[2019-11-23 06:20] LABS: HEMATOCRIT 24.9 % (36.0-48.0); HEMOGLOBIN 7.7 g/dL (12-16); MCH 28.9 pg (26.0-34.0); MCHC 30.9 g/dL (31.0-37.0); MCV 93.6 fL (80.0-100.0); MEAN PLATELET VOLUME 10.4 fL (7.4-10.4); PLATELET COUNT 548 10x3/uL (130-400); RBC 2.66 10x6/uL (4.00-5.40); RDW 17.5 % (11.5-14.5); WBC 26.3 10x3/uL (4.8-10.8)
[2019-11-23 08:55] VITALS: BP 98/56
[2019-11-23 10:51] LABS: LYMPHOCYTES 10 % (15-50); MONOCYTES 11 % (2-11); NEUTROPHILS 64 % (40-80); PLATELET ESTIMATE INCREASED
[2019-11-23 10:52] LABS: ANISOCYTOSIS OCC; HYPOCHROMASIA OCC; POLYCHROMASIA OCC
--- NOTE | 2019-11-23 16:48 | MORECARE ---
CASE MANAGEMENT DISCHARGE SUMMARY PATIENT: DIAMOND VALLE UNIT: [id number] ADM DATE: 11/21/19 AGE: 53 : 61 SEX: F ROOM/BED: D.2216 AUTHOR: JOSUE TRAN PHYSICIAN: REFERRING PHYSICIAN: SHAZIA HONEYCUTT MD DATE OF SERVICE: 11/23/19 Discharge Plan Patient Name: DIAMOND VALLE [facility] [facility] 1965 Planned Disposition: Home with Hospice Anticipated Discharge Date: Discharge Date: Expected LOS: Initial Reviewer: [email or web address] Initial Review Date: 11/23/2019 Generated: 11/23/19 5:48 pm External Providers External Provider: OTHER-OTHER Next Contact Date: Service Request Date: Service Type: Resolution: Reviewer: Comments: External Provider: [facility] [place] Next Contact Date: Service Request Date: Service Type: Resolution: Reviewer: Comments: Coverage Notice Reviewer: [email or web address] Guadarrama Notice Issued Date-Time: 11/22/2019 12:00 Notice Type: IM Discharge Notice Notice Delivered To: Patient Relationship to Patient: Linotype Machinist Name: Delivery Method: HAND - Hand Delivered Rylee Days: Prior Verbal Notification: Recipient Understood Notice: Yes Recipient Signature: Yes Med Rec Note Co-signed by Attending: Coverage Notice Comment: DC IMM PROVIDED. COPY PLACED ON CHART. Reviewer: [email or web address] Christopher Guadarrama Notice Issued Date-Time: 11/22/2019 12:00 Notice Type: Patient Choice Letter Notice Delivered To: Patient Relationship to Patient: Linotype Machinist Name: Delivery Method: HAND - Hand Delivered Rylee Days: Prior Verbal Notification: Recipient Understood Notice: Yes Recipient Signature: Yes Med Rec Note Co-signed by Attending: Coverage Notice Comment: CHAVA SIGNED FOR [facility] Patient Name: DIAMOND VALLE Page [id number] at 1648 All edits/amendments must be made on the electronic document DICTATION DATE: 11/23/191647 ASSISTANT CROSS COUNTRY COACH: KATHY 11/23/191647 RPT#: [id number] DC DATE: STATUS: ADM IN [address] [place] [address] END OF REPORT
[2019-11-23 16:55] VITALS: BP 161/75
--- NOTE | 2019-11-23 16:55 | MORECARE ---
CASE MANAGEMENT DISCHARGE SUMMARY PATIENT: DIAMOND VALLE UNIT: [id number] ADM DATE: 11/21/19 AGE: 53 : 61 SEX: F ROOM/BED: D.[facility] AUTHOR: MARCDOC PHYSICIAN: REFERRING PHYSICIAN: SHAZIA HONEYCUTT MD DATE OF SERVICE: 11/23/19 Discharge Plan Patient Name: DIAMOND VALLE Facility: [facility]:[place] : 1965 Planned Disposition: Home with Hospice Anticipated Discharge Date: Discharge Date: Expected LOS: Initial Reviewer: [email or web address] Initial Review Date: 11/23/2019 Generated: 11/23/19 5:55 pm DCPIA - Discharge Planning Initial Assessment Updated by [email or web address]: Trish Santana on 11/23/19 4:48 pm * Is the patient Alert and Oriented? Yes * How many steps to enter\exit or inside your home? 20 * PCP can't remember - [facility] * Pharmacy [facility] * Preadmission Environment Hospice * Facility Name [facility] * ADLs Total Dependent * List name and contact numbers for known caregivers / representatives who currently or will assist patient after discharge: Gwen Valle - [facility] - [phone] * Verbal permission to speak to the caregivers and representatives has been obtained from the patient. Yes * Additional services required to return to the preadmission environment? No * Can the patient safely return to the preadmission environment? Yes * Has this patient been hospitalized within the prior 30 days at any hospital? Yes Coverage Notice Reviewer: [email or web address] Christopher Guadarrama Notice Issued Date-Time: 11/22/2019 12:00 Notice Type: IM Discharge Notice Notice Delivered To: Patient Relationship to Patient: Jewel Grinder Name: Delivery Method: HAND - Hand Delivered Rylee Days: Prior Verbal Notification: Recipient Understood Notice: Yes Recipient Signature: Yes Med Rec Note Co-signed by Attending: Coverage Notice Comment: DC IMM PROVIDED. COPY PLACED ON CHART. Reviewer: [id number] - Claudia Guadarrama Notice Issued Date-Time: 11/22/2019 12:00 Notice Type: Patient Choice Letter Notice Delivered To: Patient Relationship to Patient: Jewel Grinder Name: Delivery Method: HAND - Hand Delivered Rylee Days: Prior Verbal Notification: Recipient Understood Notice: Yes Recipient Signature: Yes Med Rec Note Co-signed by Attending: Coverage Notice Comment: CHAVA SIGNED FOR [facility] Last DP export: 11/23/19 3:48 p Patient Name: DIAMOND VALLE Page 13548 at 1655 All edits/amendments must be made on the electronic document DICTATION DATE: 11/23/191654 ASSOCIATE MUSIC PROFESSOR: KATHY 11/23/191654 RPT#: [id number] DC DATE: STATUS: ADM IN [facility] [address] [place] [address] END OF REPORT
--- NOTE | 2019-11-23 17:03 | MORECARE ---
CASE MANAGEMENT DISCHARGE SUMMARY PATIENT: DIAMOND VALLE UNIT: [id number] ADM DATE: 11/21/19 AGE: 53 : 61 SEX: F ROOM/BED: D.2216 AUTHOR: MARCDOC PHYSICIAN: REFERRING PHYSICIAN: SHAZIA HONEYCUTT MD DATE OF SERVICE: 11/23/19 Discharge Plan Patient Name: DIAMOND VALLE Facility: [facility]:[place] : 1965 Planned Disposition: Home with Hospice Anticipated Discharge Date: Discharge Date: Expected LOS: Initial Reviewer: [id number] Initial Review Date: 11/23/2019 Generated: 11/23/19 6:02 pm DCP- Discharge Planning Updated by [email or web address]: Trish Santana on 11/23/19 3:[address] Patient Name: DIAMOND VALLE Admission Status: ER Accout number: [id number] Admission Date: 11-21-2019 : 1965 Admission Diagnosis: Attending: SHAZIA HONEYCUTT Current LOS: 2 Anticipated DC Date: Planned Disposition: Home with Hospice Primary Insurance: [facility] MEDICARE SOLUTIONS Discharge Planning Comments: CM met with patient to complete initial dc planning assessment. CM educated patient on the CM role and verbal consent given by patient to complete assessment. Patient lives at home with her family on Hospice Care At discharge patient plans to return home on Hospice ([facility]) and feels this is a safe discharge. CM discussed availability of home health, rehab services, and medical equipment. Patient is not wanting to discharge home until and plans to resume Hospice care at that time. CHAVA signed CM has spoken with Gavin with [facility] and he stated to let him know when patient discharges so he can have a nurse to meet her at the home for readmit. Patient denied known discharge needs at this time. CM will continue to follow and will assist as needed with dc plans/needs. Reversing Mill Roller: Trish Santana DCPIA - Discharge Planning Initial Assessment Updated by [email or web address]: Trish Santana on 11/23/19 4:48 pm * Is the patient Alert and Oriented? Yes * How many steps to enter\exit or inside your home? 20 * PCP can't remember - [facility] * Pharmacy [facility] * [facility] * Facility Name [facility] * ADLs Total Dependent * List name and contact numbers for known caregivers / representatives who currently or will assist patient after discharge: Gwen Valle - [facility] - [phone] * Verbal permission to speak to the caregivers and representatives has been obtained from the patient. Yes * Additional services required to return to the preadmission environment? No * Can the patient safely return to the preadmission environment? Yes * Has this patient been hospitalized within the prior 30 days at any hospital? Yes Coverage Notice Reviewer: [id number] Guadarrama Notice Issued Date-Time: 11/22/2019 17:30 Notice Type: Medicare Outpatient Observation Notice Notice Delivered To: Patient Relationship to Patient: Booking Police Officer Name: Delivery Method: HAND - Hand Delivered Rylee Days: Prior Verbal Notification: Recipient Understood Notice: Yes Recipient Signature: Yes Med Rec Note Co-signed by Attending: Coverage Notice Comment: DC IMM PROVIDED. COPY PLACED ON CHART. Reviewer: [id number] Guadarrama Notice Issued Date-Time: 11/22/2019 12:00 Notice Type: Patient Choice Letter Notice Delivered To: Patient Relationship to Patient: Booking Police Officer Name: Delivery Method: HAND - Hand Delivered Rylee Days: Prior Verbal Notification: Recipient Understood Notice: Yes Recipient Signature: Yes Med Rec Note Co-signed by Attending: Coverage Notice Comment: CHAVA SIGNED FOR [facility] Reviewer: [id number] Guadarrama Notice Issued Date-Time: 11/22/2019 12:00 Notice Type: IM Discharge Notice Notice Delivered To: Patient Relationship to Patient: Booking Police Officer Name: Delivery Method: HAND - Hand Delivered Rylee Days: Prior Verbal Notification: Recipient Understood Notice: Yes Recipient Signature: Yes Med Rec Note Co-signed by Attending: Coverage Notice Comment: Last DP export: 11/23/19 3:55 p Patient Name: DIAMOND VALLE Page 65952 at 1703 All edits/amendments must be made on the electronic document DICTATION DATE: 11/23/191701 OXIDATION OPERATOR: KATHY 11/23/191701 RPT#: [id number] DC DATE: STATUS: ADM IN [facility] [address] [place] [address] END OF REPORT
--- NOTE | 2019-11-23 17:10 | MORECARE ---
CASE MANAGEMENT DISCHARGE SUMMARY PATIENT: DIAMOND VALLE UNIT: [id number] ADM DATE: 11/21/19 AGE: 53 : 61 SEX: F ROOM/BED: D.2216 AUTHOR: MARCDOC PHYSICIAN: REFERRING PHYSICIAN: SHAZIA HONEYCUTT MD DATE OF SERVICE: 11/23/19 Discharge Plan Patient Name: DIAMOND VALLE Facility: [facility]:[place] : 1965 Planned Disposition: Home with Hospice Anticipated Discharge Date: Discharge Date: Expected LOS: Initial Reviewer: [id number] Initial Review Date: 11/23/2019 Generated: 11/23/19 6:09 pm DCP- Discharge Planning Updated by [email or web address]: Frandy Perea on 11/23/19 4:[address] Patient Name: DIAMOND VALLE Admission Status: ER Accout number: [id number] Admission Date: 11-21-2019 : 1965 Admission Diagnosis: Attending: SHAZIA HONEYCUTT Current LOS: 2 Anticipated DC Date: Planned Disposition: Home with Hospice Primary Insurance: [facility] MEDICARE SOLUTIONS PLANNED EXTERNAL PROVIDER: [facility] AT HOME LATE ENTRY FROM 11-12-19, 1200 HOURS. Discharge Planning Comments: OMAR BARFIELD MET WITH PT IN ROOM TO DISCUSS DISCHARGE PLANNING AND NEEDS. PT REPORTS HAVING ALL NEEDED MEDICAL EQUIPMENT FROM [facility]. PT DISCUSSED POSSIBLITY OF GOING HOME WITH HOME HEALTH. CM EDUCATED PT ON HOSPICE AND HOME HEALTH SERVICES WELL MEDICAL EQUIPMENT PROVIDED BY HOSPICE. AFTER DISCUSSION, PT DECIDED SHE DOES NOT WANT TO LOOSE HER MEDICAL EQUIPMENT AND SERVICES PROVIDED BY [facility]. PT PLANS TO DISCHARGE HOME WITH [facility]. CHOICE SIGNED FOR [facility]. IMPORTANT MESSAGE FROM MEDICARE PROVIDED AND EXPLAINED. CM NOTIFIED JULIA OF [facility], . CM FAXED REFERRAL TO [facility] AT [phone]. [facility] WILL EVALUATE FOR HOME HOSPICE READMISSION. CM TO FOLLOW AND ASSIST NEEDED. Mechanic Chief: GE KEYES RN Appended by Frandy Perea on 11/23/2019 17:07 CDT: CHART REVIEW CONDUCTED, RN CAROLYNE LINDY HAS NOTED THAT [facility] WILL COMPLETE ADMISSION TO HOSPICE AT HOME AFTER HOSPITAL DISCHARGE. FOR DISCHARGE HOME, NOTIFY [facility] AT [phone], FAX DISCHARGE INFORMATION TO [facility] AT [phone]. [facility] TO MEET PT AT HOME FOR HOSPICE ADMISSION. WILDLIFE REHABILITATOR: GE KEYES RN DCP- Discharge Planning Updated by [id number]: Trish Santana on 11/23/19 3:[address] Patient Name: DIAMOND VALLE Admission Status: ER Accout number: [id number] Admission Date: 11-21-2019 : 1965 Admission Diagnosis: Attending: SHAZIA HONEYCUTT Current LOS: 2 Anticipated DC Date: Planned Disposition: Home with Hospice Primary Insurance: [facility] MEDICARE SOLUTIONS Discharge Planning Comments: CM met with patient to complete initial dc planning assessment. CM educated patient on the CM role and verbal consent given by patient to complete assessment. Patient lives at home with her family on Hospice Care At discharge patient plans to return home on Hospice ([facility]) and feels this is a safe discharge. CM discussed availability of home health, rehab services, and medical equipment. Patient is not wanting to discharge home until and plans to resume Hospice care at that time. CHAVA signed CM has spoken with Julia with [facility] and he stated to let him know when patient discharges so he can have a nurse to meet her at the home for readmit. Patient denied known discharge needs at this time. CM will continue to follow and will assist as needed with dc plans/needs. Mechanic Chief: Trish Santana DCPIA - Discharge Planning Initial Assessment Updated by [email or web address]: Trish Santana on 11/23/19 4:48 pm * Is the patient Alert and Oriented? Yes * How many steps to enter\exit or inside your home? 20 * PCP can't remember - [facility] * Pharmacy [facility] * [facility]readmission [facility] * Facility Name [facility] * ADLs Total Dependent * List name and contact numbers for known caregivers / representatives who currently or will assist patient after discharge: Gwen Valle - sister - [phone] * Verbal permission to speak to the caregivers and representatives has been obtained from the patient. Yes * Additional services required to return to the preadmission environment? No * Can the patient safely return to the preadmission environment? Yes * Has this patient been hospitalized within the prior 30 days at any hospital? Yes Coverage Notice Reviewer: [id number] Christopher Keyes Notice Issued Date-Time: 11/22/2019 12:00 Notice Type: Patient Choice Letter Notice Delivered To: Patient Relationship to Patient: Community Life Director Name: Delivery Method: HAND - Hand Delivered Rylee Days: Prior Verbal Notification: Recipient Understood Notice: Yes Recipient Signature: Yes Med Rec Note Co-signed by Attending: Coverage Notice Comment: CHAVA SIGNED FOR [facility] Reviewer: [id number] Keyes Notice Issued Date-Time: 11/22/2019 17:30 Notice Type: Medicare Outpatient Observation Notice Notice Delivered To: Patient Relationship to Patient: Community Life Director Name: Delivery Method: HAND - Hand Delivered Rylee Days: Prior Verbal Notification: Recipient Understood Notice: Yes Recipient Signature: Yes Med Rec Note Co-signed by Attending: Coverage Notice Comment: DC IMM PROVIDED. COPY PLACED ON CHART. Reviewer: [id number] Christopher Keyes Notice Issued Date-Time: 11/22/2019 12:00 Notice Type: IM Discharge Notice Notice Delivered To: Patient Relationship to Patient: Community Life Director Name: Delivery Method: HAND - Hand Delivered Rylee Days: Prior Verbal Notification: Recipient Understood Notice: Yes Recipient Signature: Yes Med Rec Note Co-signed by Attending: Coverage Notice Comment: Last DP export: 11/23/19 4:03 p Patient Name: DIAMOND VALLE Page 71454 at 1710 All edits/amendments must be made on the electronic document DICTATION DATE: 11/23/191708 ARBORICULTURIST: KATHY 11/23/191708 RPT#: [id number] DC DATE: STATUS: ADM IN [facility] [address] [place] [address] END OF REPORT
--- NOTE | 2019-11-23 18:53 | NUR ---
I have reviewed this patient and I concur with the Shift Assessment completed by the Licensed Practical Nurse today this shift.
--- NOTE | 2019-11-23 19:53 | NUR ---
DRESSING TO ABD CHANGED AT THIS TIME. TOLERATED WELL.
[2019-11-23 21:00] VITALS: BP 133/81
[2019-11-24 00:30] VITALS: BP 137/75
--- NOTE | 2019-11-24 04:23 | NUR ---
I have reviewed this patient and I concur with the Shift Assessment completed by the Licensed Practical Nurse today this shift.
[2019-11-24 04:30] VITALS: BP 152/83
[2019-11-24 05:23] LABS: BASOPHILS 0.8 % (0-2); EOSINOPHILS 0.6 % (0-7); HEMATOCRIT 24.5 % (36.0-48.0); HEMOGLOBIN 7.6 g/dL (12-16); IMMATURE GRANULOCYTES 5.7 % (0-5); LYMPHOCYTES 7.1 % (15-50); MCH 29.1 pg (26.0-34.0); MCV 93.9 fL (80.0-100.0); MEAN PLATELET VOLUME 10.7 fL (7.4-10.4); MONOCYTES 12.4 % (2-11); NEUTROPHILS 73.4 % (40-80); PLATELET COUNT 616 10x3/uL (130-400); RBC 2.61 10x6/uL (4.00-5.40); RDW 17.6 % (11.5-14.5)
[2019-11-24 05:38] LABS: ALBUMIN 1.4 g/dL (3.4-5.0); ALKALINE PHOSPHATASE 185 U/L (30-120); ALT (SGPT) 42 U/L (10-68); BILIRUBIN - TOTAL 0.74 mg/dL (0.2-1.3); CALCIUM 7.7 mg/dL (8.5-10.1); CARBON DIOXIDE 24.2 mmol/L (21.0-32.0); CHLORIDE - SERUM 109 mmol/L (98-107); CREATININE - SERUM 0.5 mg/dL (0.6-1.3); GLUCOSE 115 mg/dL (74-106); SODIUM 142 mmol/L (136-145); eGFR NON AFRICAN AMERICAN > 90 mL/min (90-120)
[2019-11-24 05:39] LABS: CALC OSMOLALITY 280 mosm/kg (275-300); POTASSIUM - SERUM 3.7 mmol/L (3.5-5.1); UREA NITROGEN 4 mg/dL (7-18)
[2019-11-24 08:00] VITALS: BP 137/85
--- NOTE | 2019-11-24 11:31 | NUR ---
REMOVED PT J TUBE WITH ASSISTANCE OF WOUND CARE NURSE, PT TOLERATED WELL, CONTINUE WITH PLAN OF CARE
--- NOTE | 2019-11-24 11:57 | NUR ---
J TUBE REMOVED PER DR. BOATENG'S ORDERS WITH [facility] PRIMARY NURSE. REMOVED 1CC FROM BULB. THERE WAS NO DIFFICULTY REMOVING. THE SKIN SURROUNDING OPENING IS COVERED WITH OSTOMY WAFER AND ATTACHED TO DRAINAGE BAG. THERE IS A LARGE AMOUNT OF GREEN DRAINAGE NOTED WITH NO ODOR. WOUND CARE CONTINUES TO MONITOR.
--- NOTE | 2019-11-24 13:58 | NUR ---
Nutrition Follow-up: Noted j-tube removed and plans to d/c with hospice today. Diet: clear liquid (for comfort) No new wt; last wt: 100# (11/21) Labs noted: Glu 115, Ca 7.7, Alb 1.4 Meds noted: D5NS @ 75 -RD following.
--- NOTE | 2019-11-24 14:00 | NUR ---
I have reviewed this patient and I concur with the Shift Assessment completed by the Licensed Practical Nurse today this shift.
--- NOTE | 2019-11-24 15:18 | NUR ---
PT DC HOME ON HOSPICE, EMPTIED PT MEJIA, TROY DRAIN AND COLOSTOMY BAG, IV DC WITH CATHETER INTACT. NO OTHER NEEDS VOICED, WENT OVER DC PAPERWORK ALL QUESTIONS ANSWERED
--- NOTE | 2019-11-24 20:43 | MORECARE ---
CASE MANAGEMENT DISCHARGE SUMMARY PATIENT: DIAMOND VALLE UNIT: [id number] ADM DATE: 11/21/19 AGE: 53 : 61 SEX: F ROOM/BED: D.2216 AUTHOR: MARC,DOC PHYSICIAN: REFERRING PHYSICIAN: SHAZIA HONEYCUTT MD DATE OF SERVICE: 11/24/19 Discharge Plan Patient Name: DIAMOND VALLE Facility: [facility]:[place] : 1965 Planned Disposition: Home with Hospice Anticipated Discharge Date: Discharge Date: 11/24/2019 Expected LOS: Initial Reviewer: [id number] Initial Review Date: 11/23/2019 Generated: 11/24/19 9:43 pm Comments DCP- Discharge Planning Updated by [email or web address]: Trish Santana on 11/24/19 7:[address] CM spoke with patient and she is still stating that she wants to go home on . She stated that she doesn't have anyone at home to take care of her today. CM called and spoke with patients sister Gwen Valle and explained that the patient is not wanting to go home today and CM explained that patient has been discharged. Gwen stated that she would try to contact other family members to see if the door could be opened. Gwen stated that she did want the patient to continue Hospice Care. After multiple phone calls back and forth family and patient agree to discharge today. [facility] ambulance called for transfer. Julia with [facility] notified that patient was discharged and ambulance transfer. Julia stated he would have nurse out there JENIFER. CM will continue to follow and assist as needed with discharge planning / needs. DCP- Discharge Planning Updated by [id number]: Frandy Perea on 11/23/19 4:[address] Patient Name: DIAMOND VALLE Admission Status: ER Accout number: [id number] Admission Date: 11-21-2019 : 1965 Admission Diagnosis: Attending: SHAZIA HONEYCUTT Current LOS: 2 Anticipated DC Date: Planned Disposition: Home with Hospice Primary Insurance: [facility] MEDICARE SOLUTIONS PLANNED EXTERNAL PROVIDER: [facility] HOME LATE ENTRY FROM 11-12-19, 1200 HOURS. Discharge Planning Comments: RN CM MET WITH PT IN ROOM TO DISCUSS DISCHARGE PLANNING AND NEEDS. PT REPORTS HAVING ALL NEEDED MEDICAL EQUIPMENT FROM [facility]. PT DISCUSSED POSSIBLITY OF GOING HOME WITH HOME HEALTH. CM EDUCATED PT ON HOSPICE AND HOME HEALTH SERVICES WELL MEDICAL EQUIPMENT PROVIDED BY HOSPICE. AFTER DISCUSSION, PT DECIDED SHE DOES NOT WANT TO LOOSE HER MEDICAL EQUIPMENT AND SERVICES PROVIDED BY [facility]. PT PLANS TO DISCHARGE HOME WITH [facility]. CHOICE SIGNED FOR [facility]. IMPORTANT MESSAGE FROM MEDICARE PROVIDED AND EXPLAINED. CM NOTIFIED JULIA OF [facility], . CM FAXED REFERRAL TO [facility] AT [phone]. [facility] WILL EVALUATE FOR HOME HOSPICE READMISSION. CM TO FOLLOW AND ASSIST NEEDED. Concrete Mixer Truck Driver: CLAUDIA KEYES RN Appended by Frandy Perea on 11/23/2019 17:07 CDT: CHART REVIEW CONDUCTED, RN CAROLYNE SANTANA HAS NOTED THAT [facility] WILL COMPLETE ADMISSION TO HOSPICE AT HOME AFTER HOSPITAL DISCHARGE. FOR DISCHARGE HOME, NOTIFY [facility] AT [phone], FAX DISCHARGE INFORMATION TO [facility] AT [phone]. [facility] TO MEET PT AT HOME FOR HOSPICE ADMISSION. SUPERVISOR PRINTING SHOP: CLAUDIA KEYES RN DCP- Discharge Planning Updated by [email or web address]: Trish Santana on 11/23/19 3:[address] Patient Name: DIAMOND VALLE Admission Status: ER Accout number: [id number] Admission Date: 11-21-2019 : 1965 Admission Diagnosis: Attending: SHAZIA HONEYCUTT Current LOS: 2 Anticipated DC Date: Planned Disposition: Home with Hospice Primary Insurance: [facility] MEDICARE SOLUTIONS Discharge Planning Comments: CM met with patient to complete initial dc planning assessment. CM educated patient on the CM role and verbal consent given by patient to complete assessment. Patient lives at home with her family on Hospice Care At discharge patient plans to return home on Hosp[facility] ([facility]) and feels this is a safe discharge. CM discussed availability of home health, rehab services, and medical equipment. Patient is not wanting to discharge home until and plans to resume Hospice care at that time. CHAVA signed CM has spoken with Julia with [facility] and he stated to let him know when patient discharges so he can have a nurse to meet her at the home for readmit. Patient denied known discharge needs at this time. CM will continue to follow and will assist as needed with dc plans/needs. Concrete Mixer Truck Driver: Trish Santana DCPIA - Discharge Planning Initial Assessment Updated by [id number]: Trish Santana on 11/23/19 4:48 pm * Is the patient Alert and Oriented? Yes * How many steps to enter\exit or inside your home? 20 * PCP can't remember - [facility] * Pharmacy [facility] * [facility] * Facility Name [facility] * ADLs Total Dependent * List name and contact numbers for known caregivers / representatives who currently or will assist patient after discharge: Gwen Valle - [facility] - [phone] * Verbal permission to speak to the caregivers and representatives has been obtained from the patient. Yes * Additional services required to return to the preadmission environment? No * Can the patient safely return to the preadmission environment? Yes * Has this patient been hospitalized within the prior 30 days at any hospital? Yes Coverage Notice Reviewer: [id number] Christopher Keyes Notice Issued Date-Time: 11/22/2019 17:30 Notice Type: Medicare Outpatient Observation Notice Notice Delivered To: Patient Relationship to Patient: Fish Hatchery Laborer Name: Delivery Method: HAND - Hand Delivered Rylee Days: Prior Verbal Notification: Recipient Understood Notice: Yes Recipient Signature: Yes Med Rec Note Co-signed by Attending: Coverage Notice Comment: DC IMM PROVIDED. COPY PLACED ON CHART. Reviewer: [id number] Christopher Keyes Notice Issued Date-Time: 11/22/2019 12:00 Notice Type: Patient Choice Letter Notice Delivered To: Patient Relationship to Patient: Fish Hatchery Laborer Name: Delivery Method: HAND - Hand Delivered Rylee Days: Prior Verbal Notification: Recipient Understood Notice: Yes Recipient Signature: Yes Med Rec Note Co-signed by Attending: Coverage Notice Comment: CHAVA SIGNED FOR [facility] Reviewer: [id number] - Claudia Keyes Notice Issued Date-Time: 11/22/2019 12:00 Notice Type: IM Discharge Notice Notice Delivered To: Patient Relationship to Patient: Fish Hatchery Laborer Name: Delivery Method: HAND - Hand Delivered Rylee Days: Prior Verbal Notification: Recipient Understood Notice: Yes Recipient Signature: Yes Med Rec Note Co-signed by Attending: Coverage Notice Comment: Last DP export: 11/23/19 4:10 p Patient Name: DIAMOND VALLE Page 33089 at 204 All edits/amendments must be made on the electronic document DICTATION DATE: 11/24/192042 SALES PERFORMANCE MANAGER: KATHY 11/24/192042 RPT#: [id number] DC DATE:11/24/19 STATUS: DIS IN [facility] [address] [place] [address] END OF REPORT
== END 2019-11-24 15:20 | disposition home or self-care (01) ==
LOC: D.ER 14:53 → D.MS 18:59 → OBSVTIME 18:59 → D.MS 18:59 → D.SDCHOLD 11-24 15:06 → D.MS 11-24 15:06
PROVIDERS: Family Medicine; ADMIT Internal Medicine Nephrology; ATTEND Internal Medicine Nephrology
DX: C16.9 Malignant neoplasm of stomach, unspecified (principal); C78.6 Secondary malignant neoplasm of retroperitoneum and peritoneum; I10 Essential (primary) hypertension; K57.30 Diverticulosis of large intestine without perforation or abscess without bleeding; D75.89 Other specified diseases of blood and blood-forming organs; K76.0 Fatty (change of) liver, not elsewhere classified; E87.1 Hypo-osmolality and hyponatremia; G89.29 Other chronic pain; K94.19 Other complications of enterostomy; T30.4 Corrosion of unspecified body region, unspecified degree

== ENCOUNTER 2020-01-06 04:11 | Inpatient (IN) | payer MEDICARE, MEDICAID ==
[~2020-01-06] VITALS: Ht 142.2 cm; Wt 28.0 kg
[2020-01-06 05:36] LABS: BASOPHILS 0.3 % (0-2); EOSINOPHILS 0.1 % (0-7); HEMATOCRIT 31.7 % (36.0-48.0); HEMOGLOBIN 10.7 g/dL (12-16); IMMATURE GRANULOCYTES 1.4 % (0-5); LYMPHOCYTES 20.8 % (15-50); MCH 30.2 pg (26.0-34.0); MCHC 33.8 g/dL (31.0-37.0); MCV 89.5 fL (80.0-100.0); MEAN PLATELET VOLUME 10.5 fL (7.4-10.4); MONOCYTES 10.5 % (2-11); NEUTROPHILS 66.9 % (40-80); PLATELET COUNT 247 10x3/uL (130-400); RBC 3.54 10x6/uL (4.00-5.40); RDW 19.8 % (11.5-14.5); WBC 13.9 10x3/uL (4.8-10.8)
[2020-01-06 06:00] LABS: ALBUMIN 1.7 g/dL (3.4-5.0); ALKALINE PHOSPHATASE 238 U/L (30-120); ALT (SGPT) 30 U/L (10-68); BILIRUBIN - TOTAL 3.31 mg/dL (0.2-1.3); CALC OSMOLALITY 265 mosm/kg (275-300); CALCIUM 7.4 mg/dL (8.5-10.1); CHLORIDE - SERUM 96 mmol/L (98-107); CREATININE - SERUM 0.5 mg/dL (0.6-1.3); GLUCOSE 98 mg/dL (74-106); PRO BNP 176 pg/mL (0-125); PROTEIN - SERUM 6.5 g/dL (6.4-8.2); SODIUM 134 mmol/L (136-145); TROPONIN-I < 0.017 ng/mL (0.000-0.060); UREA NITROGEN 7 mg/dL (7-18); eGFR NON AFRICAN AMERICAN > 90 mL/min (90-120)
[2020-01-06 06:03] LABS: LIPASE 17 U/L (73-393)
[2020-01-06 07:17] VITALS: BP 113/75
[2020-01-06 08:05] VITALS: BP 117/82
[2020-01-06] MEDS ORDERED: XANAX1 MG PO (08:55)
[2020-01-06] MEDS ORDERED: OXYCODONE HCL10 MG PO (08:57)
--- NOTE | 2020-01-06 11:52 | NUR ---
Pt admitted today to [facility]. She has an ostomy / stoma located on right abd. There is a healed incision site midline abdomen. There are 2 small open areas, the top is draining stool. After removing the ostomy appliance and dressing to midline abd, the skin was cleansed and dried. Skin prep was applied. Stoma measures 2-1/4" . Appliance was applied without difficulty. Over the fistula site, ostomy paste was applied to even out skin and another ostomy appliance was attached. Pt also has a stage 2 pressure injury on right buttock measuring 3cm x 3cm x 0.2cm. Mepilex sacral dressing was applied. An air overlay mattress was ordered and pt was instructed to stay off her bottom as much as possible while she's in bed. She voiced understanding. Wound care will continue monitoring.
[2020-01-06 12:12] VITALS: BP 122/77
[2020-01-06 13:32] VITALS: BP 115/77
--- NOTE | 2020-01-06 16:52 | MORECARE ---
CASE MANAGEMENT DISCHARGE SUMMARY PATIENT: DIAMOND VALLE UNIT: [id number] ADM DATE: 01/06/20 AGE: 54 : 61 SEX: F ROOM/BED: D.2203 AUTHOR: JOSUE TRAN PHYSICIAN: REFERRING PHYSICIAN: AMIRAH TURK MD DATE OF SERVICE: 01/06/20 Discharge Plan Patient Name: DIAMOND VALLE Facility: [facility]:[place] : 1965 Planned Disposition: Anticipated Discharge Date: Discharge Date: Expected LOS: Initial Reviewer: [email or web address] Initial Review Date: 01/06/2020 Generated: 01/06/20 5:52 pm Patient Name: DIAMOND VALLE Page 65867 at 1652 All edits/amendments must be made on the electronic document DICTATION DATE: 01/06/201651 SCIENTIST: KATHY 01/06/201651 RPT#: [id number] SC DATE: STATUS: ADM IN [facility] [address] [place] [address] END OF REPORT
[2020-01-06 17:27] VITALS: BP 122/76
[2020-01-06 20:00] VITALS: BP 105/73
--- NOTE | 2020-01-06 20:00 | NUR ---
PATIENT RESTING IN BED WATCHING TV. NO S/S OF ACUTE DISTRESS. PATIENT C/O PAIN AND PATIENT WAS INSTRUCTED TO USE THE MORPHINE ADOBE BALL MIXER. PATIENT HAS A RIGHT FOREARM NORMAL SALINE @ 125 ML/HR. IV IS PATENT WITHOUT REDNESS, SWELLING, OR TENDERNESS. PATIENT HAS A MORPHINE ADOBE BALL MIXER. PATIENT HAS A OSTOMY WITH A BAG AND WILL NOT EMPTY IT HERSELF. PATIENT TOLD ME HOW TO CLEAN IT "PROPERLY" AND KNOWS HOW TO CLEAN IT HERSELF BUT REFUSES TO. PATIENT HAS A UROSTOMY PUCH PLACE OVER THE POSSIBLE FISTULA ON MIDLINE INCISION THAT IS LEAKING THE SAME FLUID THE OSTOMY. PATIENT IS ON A OVERLAY BED AND HAS A STAGE TWO ON HER RIGHT BUTTOCKS, DRESSING C/D/I. CALL LIGHT WITHIN REACH. WILL CONTINUE TO MONITOR.
[2020-01-07] VITALS: BP 115/72
--- NOTE | 2020-01-07 02:56 | NUR ---
I have reviewed this patient and I concur with the Shift Assessment completed by the Licensed Practical Nurse today this shift.
[2020-01-07 04:00] VITALS: BP 105/71
--- NOTE | 2020-01-07 06:40 | MORECARE ---
CASE MANAGEMENT DISCHARGE SUMMARY PATIENT: DIAMOND VALLE UNIT: [id number] ADM DATE: 01/06/20 AGE: 54 : 61 SEX: F ROOM/BED: D.2203 AUTHOR: JOSUE TRAN PHYSICIAN: REFERRING PHYSICIAN: AMIRAH TURK MD DATE OF SERVICE: 01/07/20 Discharge Plan Patient Name: DIAMOND VALLE Facility: [facility]:[place] : 1965 Planned Disposition: Home with Hospice Anticipated Discharge Date: Discharge Date: Expected LOS: Initial Reviewer: [id number] Initial Review Date: 01/06/2020 Generated: 01/07/20 7:39 am DCP- Discharge Planning Updated by [email or web address]: Susi Leo on 01/07/20 5:[address] received a call from [place] with [facility] on 01/05 stating that they will not be able to readmit patient on their services as far as compliance and philosophy. I will visit with patient this morning to see what her discharge plan will be Last DP export: 01/06/20 3:52 p Patient Name: DIAMOND VALLE Page 56082 at 0640 All edits/amendments must be made on the electronic document DICTATION DATE: 01/07/20638 EFFICIENCY EXPERT: KATHY 01/07/20 0639 RPT#: [id number] DC DATE: STATUS: ADM IN [facility] [address] [place] [address] END OF REPORT
[2020-01-07 07:02] LABS: ALBUMIN 1.3 g/dL (3.4-5.0); ALKALINE PHOSPHATASE 183 U/L (30-120); ALT (SGPT) 26 U/L (10-68); BILIRUBIN - TOTAL 2.65 mg/dL (0.2-1.3); CALC OSMOLALITY 269 mosm/kg (275-300); CARBON DIOXIDE 27.3 mmol/L (21.0-32.0); CHLORIDE - SERUM 104 mmol/L (98-107); CREATININE - SERUM 0.4 mg/dL (0.6-1.3); GLUCOSE 91 mg/dL (74-106); PROTEIN - SERUM 5.2 g/dL (6.4-8.2); SODIUM 136 mmol/L (136-145); UREA NITROGEN 7 mg/dL (7-18); eGFR NON AFRICAN AMERICAN > 90 mL/min (90-120)
[2020-01-07 07:11] LABS: BASOPHILS 0.3 % (0-2); EOSINOPHILS 0.2 % (0-7); HEMATOCRIT 26.9 % (36.0-48.0); HEMOGLOBIN 8.9 g/dL (12-16); MCH 30.1 pg (26.0-34.0); MCHC 33.1 g/dL (31.0-37.0); MCV 90.9 fL (80.0-100.0); MEAN PLATELET VOLUME 10.5 fL (7.4-10.4); MONOCYTES 8.9 % (2-11); NEUTROPHILS 69.6 % (40-80); PLATELET COUNT 250 10x3/uL (130-400); RBC 2.96 10x6/uL (4.00-5.40); RDW 20.4 % (11.5-14.5); WBC 13.8 10x3/uL (4.8-10.8)
--- NOTE | 2020-01-07 07:15 | NUR ---
STAFF CALLED TO ROOM. PT VOICES ILEOSTOMY AND UROSTOMY LEAKING AND THE NEED TO BE CHANGED. GATHERED SUPPLIES TO CHANGE BOTH. BAGS REMOVED FROM BOTH. BOTH AREAS CLEANED AND NEW BAGS APPLIED TO BOTH SITES. STOMA PINK AND DRAINING YELLOW GREENISH BILE. PT ANNETTE WELL. IV TO RIGHT FOREARM WITH NS @ 125ML/HR INFUSING VIA PUMP. PT REPORTS ABAD 6/10 AT THIS TIME. MORPHINE OUTER DIAMETER GRINDER TOOL IN PLACE, BUT PT VOICES NO DESIRE TO USE SHE VOICES SHE WANTS IV PUSH PAIN MEDICATIONS. EDUCATED PT REGARDING OUTER DIAMETER GRINDER TOOL, PT CONTINUES TO VOICE WISHES TO HAVE IV PAIN MEDICATION. INSTRUCTED PT THAT STAFF WOULD TALK WITH MD REGARDING THIS MATTER. PT VOICES UNDERSTANDING. DENIES FURTHER NEEDS A TTHIS TIME. CL WITHIN REACH. OUTER DIAMETER GRINDER TOOL CONTROL WITHIN REACH. ENCOURAGED TO CALL WITH NEEDS.
[2020-01-07 07:16] LABS: CALCIUM 6.6 mg/dL (8.5-10.1); POTASSIUM - SERUM 2.7 mmol/L (3.5-5.1)
[2020-01-07 08:56] VITALS: BP 110/80
[2020-01-07 11:04] VITALS: Ht 142.2 cm; Wt 28.0 kg
--- NOTE | 2020-01-07 13:11 | MORECARE ---
CASE MANAGEMENT DISCHARGE SUMMARY PATIENT: DIAMOND VALLE UNIT: [id number] ADM DATE: 01/06/20 AGE: 54 : 61 SEX: F ROOM/BED: D.2203 AUTHOR: JOSUE TRAN PHYSICIAN: REFERRING PHYSICIAN: AMIRAH TURK MD DATE OF SERVICE: 01/07/20 Discharge Plan Patient Name: DIAMOND VALLE Facility: [facility]:[place] : 1965 Planned Disposition: Home with Hospice Anticipated Discharge Date: Discharge Date: Expected LOS: Initial Reviewer: [email or web address] Initial Review Date: 01/06/2020 Generated: 01/07/20 2:11 pm DCP- Discharge Planning Updated by [email or web address]: Susi Leo on 01/07/20 5:[address] received a call from [place] with [facility] on 01/05 stating that they will not be able to readmit patient on their services as far as compliance and philosophy. I will visit with patient this morning to see what her discharge plan will be Last DP export: 01/07/20 5:40 a Patient Name: DIAMOND VALLE Page 31494 at 1311 All edits/amendments must be made on the electronic document DICTATION DATE: 01/07/20 1311 SUPERVISOR LIQUEFACTION: KATHY 01/07/20 1311 RPT#: [id number] DC DATE: STATUS: ADM IN [facility] [address] [place] [address] END OF REPORT
[2020-01-07 13:36] VITALS: BP 126/85
--- NOTE | 2020-01-07 15:48 | NUR ---
REMOVED OSTOMY APPLIANCE AND UROSTOMY APPLIANCE COVERING THE FISTULA MIDLINE ABD INCISION D/T LEAKING. SKIN CLEANED AND DRIED. PT INSISTENT THAT UROSTOMY APPLIANCE NOT BE REAPPLIED OVER FISTULA. SHE STATES IT'S HURTING HER SKIN. OSTOMY APPLIANCE PLACED OVER STOMA AND OVER FISTULA 4X4S AND ABD PAD SECURED WITH TAPE. PT STATED THAT IF SHE HAD SUPPLIES CLOSE TO HER THAT SHE WOULD CHANGE THE DRESSING IT NEEDED IT. 4X4S, ABD PADS AND TAPE WERE PLACED ON THE BEDSIDE TABLE WITHIN PT REACH. WE REVIEWED AGAIN HOW DRESSING WAS APPLIED. SHE ASSURED US THAT SHE COULD DO IT AND KEEP IT CLEAN. UROSTOMY APPLIANCES LEFT IN ROOM FOR FUTURE USE IF NECESSARY. WOUND CARE CONTINUES TO MONITOR.
[2020-01-07 18:31] VITALS: BP 109/70
[2020-01-07 20:00] VITALS: BP 111/74
--- NOTE | 2020-01-07 20:00 | NUR ---
LYING QUIELTY WITH NO DISTESS NOTED. IF TO RFA INTACT WITHOUT REDNESS OR EDEMA NOTED. EYELET ROW MARKER MORPHINE IN USE FOR PAIN CONTROL. OSTOMY TO RIGHT ABD INTACT. DRESSING INTACT TO MID ABD. NO COMPLAINTS VOICED. CL IN REACH
--- NOTE | 2020-01-08 03:39 | NUR ---
I have reviewed this patient and I concur with the Shift Assessment completed by the Licensed Practical Nurse today this shift.
[2020-01-08 04:00] VITALS: BP 110/81
[2020-01-08 06:39] LABS: BASOPHILS 0.5 % (0-2); EOSINOPHILS 0.5 % (0-7); HEMATOCRIT 28.4 % (36.0-48.0); HEMOGLOBIN 9.2 g/dL (12-16); IMMATURE GRANULOCYTES 1.8 % (0-5); LYMPHOCYTES 24.6 % (15-50); MCH 30.3 pg (26.0-34.0); MCHC 32.4 g/dL (31.0-37.0); MEAN PLATELET VOLUME 10.3 fL (7.4-10.4); MONOCYTES 9.5 % (2-11); NEUTROPHILS 63.1 % (40-80); PLATELET COUNT 275 10x3/uL (130-400); RBC 3.04 10x6/uL (4.00-5.40); RDW 21.3 % (11.5-14.5); WBC 13.2 10x3/uL (4.8-10.8)
[2020-01-08 06:45] LABS: MCV 93.4 fL (80.0-100.0)
[2020-01-08 07:01] LABS: ALBUMIN 1.4 g/dL (3.4-5.0); ALKALINE PHOSPHATASE 196 U/L (30-120); BILIRUBIN - TOTAL 2.32 mg/dL (0.2-1.3); CARBON DIOXIDE 24.7 mmol/L (21.0-32.0); CHLORIDE - SERUM 106 mmol/L (98-107); GLUCOSE 97 mg/dL (74-106); POTASSIUM - SERUM 3.1 mmol/L (3.5-5.1); PROTEIN - SERUM 5.5 g/dL (6.4-8.2); SODIUM 136 mmol/L (136-145)
[2020-01-08 07:03] LABS: CALC OSMOLALITY 268 mosm/kg (275-300); CREATININE - SERUM 0.6 mg/dL (0.6-1.3); UREA NITROGEN 4 mg/dL (7-18); eGFR NON AFRICAN AMERICAN > 90 mL/min (90-120)
[2020-01-08 07:09] LABS: ALT (SGPT) 33 U/L (10-68); CALCIUM 6.7 mg/dL (8.5-10.1)
--- NOTE | 2020-01-08 07:48 | NUR ---
REC'D CALL FROM LAB STATING THAT PT CALCIUM IS 6.7 ON THIS MORNING. CALL WAS PLACED TO Tina HANLEY APN. NO NEW ORDERS WERE GIVEN AT THIS TIME.
[2020-01-08 08:20] VITALS: BP 112/62
[2020-01-08 12:11] VITALS: BP 117/80
[2020-01-08 16:00] VITALS: BP 116/59
--- NOTE | 2020-01-08 16:10 | MORECARE ---
CASE MANAGEMENT DISCHARGE SUMMARY PATIENT: DIAMOND VALLE UNIT: [id number] ADM DATE: 01/06/20 AGE: 54 : 61 SEX: F ROOM/BED: D.2203 AUTHOR: JOSUE TRAN PHYSICIAN: REFERRING PHYSICIAN: AMIRAH TURK MD DATE OF SERVICE: 01/08/20 Discharge Plan Patient Name: DIAMOND VALLE [facility] [facility] 1965 Planned Disposition: Home with Hospice Anticipated Discharge Date: Discharge Date: Expected LOS: Initial Reviewer: [email or web address] Initial Review Date: 01/06/2020 Generated: 01/08/20 5:09 pm DCP- Discharge Planning Updated by [email or web address]: Susi Leo on 01/07/20 5:[address] received a call from [place] with [facility] on 01/05 stating that they will not be able to readmit patient on their services as far as compliance and philosophy. I will visit with patient this morning to see what her discharge plan will be External Providers External Provider: [facility] *(provides inpt [facility] Next Contact Date: Service Request Date: Service Type: Resolution: Reviewer: Comments: Last DP export: 01/07/20 12:11 p Patient Name: DIAMOND VALLE Page [id number] at 1610 All edits/amendments must be made on the electronic document DICTATION DATE: 01/08/201608 SURGICAL RESIDENT: KATHY 01/08/20 160 RPT#: [id number] DC DATE: STATUS: ADM IN [facility] [address] [place] [address] END OF REPORT
--- NOTE | 2020-01-08 16:36 | MORECARE ---
CASE MANAGEMENT DISCHARGE SUMMARY PATIENT: DIAMOND VALLE UNIT: [id number] ADM DATE: 01/06/20 AGE: 54 : 61 SEX: F ROOM/BED: D.2203 AUTHOR: MARCDOC PHYSICIAN: REFERRING PHYSICIAN: AMIRAH TURK MD DATE OF SERVICE: 01/08/20 Discharge Plan Patient Name: DIAMOND VALLE Facility: [facility]:[place] : 1965 Planned Disposition: Home with Hospice Anticipated Discharge Date: Discharge Date: Expected LOS: Initial Reviewer: [id number] Initial Review Date: 01/06/2020 Generated: 01/08/20 5:35 pm Comments DCP- Discharge Planning Updated by [id number]: Essie Ng on 01/08/20 3:[address] CM received an order for home hospice for pain management. I met with patient to discuss discharge planning/needs. She states she lives with her sister and 4 children. States she is completely dependent on her family. She had [facility] hospice at home, but they will not accept her back. [facility] states there were issues with the pain medications not lasting as long as they should and suspicion that family members were using the patient's pain medication. I spoke with the patient and she would like to have [facility] when she discharges. I called and spoke to Prieto with [facility] and she states she will speak with [facility] before they can evaluate and admit the patient. Prieto states she doubts they will be able to accept the patient to their services, but will let me know something after speaking with medical management specialist. CM will continue to follow and assist with discharge planning/needs. DCP- Discharge Planning Updated by [id number]: Susi Leo on 01/07/20 5:[address] received a call from Gavin with [facility] on 01/05 stating that they will not be able to readmit patient on their services as far as compliance and philosophy. I will visit with patient this morning to see what her discharge plan will be Coverage Notice Reviewer: [id number] - Essie Ng Notice Issued Date-Time: 01/08/2020 16:20 Notice Type: IM Discharge Notice Notice Delivered To: Patient Relationship to Patient: Self Fur Joiner Name: Delivery Method: HAND - Hand Delivered Rylee Days: Prior Verbal Notification: Recipient Understood Notice: Yes Recipient Signature: Yes Med Rec Note Co-signed by Attending: Coverage Notice Comment: IMM explained, signed, given, copy placed in MR Reviewer: [id number] Christopher Essie Ng Notice Issued Date-Time: 01/08/2020 16:20 Notice Type: Patient Choice Letter Notice Delivered To: Patient Relationship to Patient: Self Fur Joiner Name: Delivery Method: HAND - Hand Delivered Rylee Days: Prior Verbal Notification: Recipient Understood Notice: Yes Recipient Signature: Yes Med Rec Note Co-signed by Attending: Coverage Notice Comment: [facility] for [facility] Last DP export: 01/08/20 3:10 p Patient Name: DIAMOND VALLE Page [id number] at 1636 All edits/amendments must be made on the electronic document DICTATION DATE: 01/08/201634 STEAM TRAP WORKER: KATHY 01/08/20 1635 RPT#: [id number] DC DATE: STATUS: ADM IN [facility] [address] [place] [address] END OF REPORT
--- NOTE | 2020-01-08 17:32 | MORECARE ---
CASE MANAGEMENT DISCHARGE SUMMARY PATIENT: DIAMOND VALLE UNIT: [id number] ADM DATE: 01/06/20 AGE: 54 : 61 SEX: F ROOM/BED: D.2203 AUTHOR: MARC,DOC PHYSICIAN: REFERRING PHYSICIAN: AMIRAH TURK MD DATE OF SERVICE: 01/08/20 Discharge Plan Patient Name: DIAMOND VALLE Facility: [facility]:[place] : 1965 Planned Disposition: Home with Hospice Anticipated Discharge Date: Discharge Date: Expected LOS: Initial Reviewer: [email or web address] Initial Review Date: 01/06/2020 Generated: 01/08/20 6:32 pm Comments DCP- Discharge Planning Updated by [id number]: Essie Ng on 01/08/20 4:[address] Prieto with [facility] returned call and states that Dr. Villalpando has declined patient for their services. I spoke with the patient and she states to try other agencies that will accept her. I called and spoke with Sonali with [facility] and she will see patient in the morning after speaking with her medical record librarian. CM will continue to follow and assist with discharge planning/needs. DCP- Discharge Planning Updated by [id number]: Essie Ng on 01/08/20 3:[address] CM received an order for home hospice for pain management. I met with patient to discuss discharge planning/needs. She states she lives with her sister and 4 children. States she is completely dependent on her family. She had [facility] at home, but they will not accept her back. [facility] states there were issues with the pain medications not lasting as long as they should and suspicion that family members were using the patient's pain medication. I spoke with the patient and she would like to have [facility] when she discharges. I called and spoke to Prieto with [facility] and she states she will speak with [facility] before they can evaluate and admit the patient. Prieto states she doubts they will be able to accept the patient to their services, but will let me know something after speaking with medical record librarian. CM will continue to follow and assist with discharge planning/needs. DCP- Discharge Planning Updated by [id number]: Susi Leo on 01/07/20 5:[address] received a call from Gavin with [facility] on 01/05 stating that they will not be able to readmit patient on their services as far as compliance and philosophy. I will visit with patient this morning to see what her discharge plan will be Coverage Notice Reviewer: [id number] Ng Notice Issued Date-Time: 01/08/2020 16:20 Notice Type: IM Discharge Notice Notice Delivered To: Patient Relationship to Patient: Self Hand Crocheter Name: Delivery Method: HAND - Hand Delivered Rylee Days: Prior Verbal Notification: Recipient Understood Notice: Yes Recipient Signature: Yes Med Rec Note Co-signed by Attending: Coverage Notice Comment: IMM explained, signed, given, copy placed in MR Reviewer: [id number] Ng Notice Issued Date-Time: 01/08/2020 16:20 Notice Type: Patient Choice Letter Notice Delivered To: Patient Relationship to Patient: Self Hand Crocheter Name: Delivery Method: HAND - Hand Delivered Rylee Days: Prior Verbal Notification: Recipient Understood Notice: Yes Recipient Signature: Yes Med Rec Note Co-signed by Attending: Coverage Notice Comment: [facility] for [facility] Last DP export: 01/08/20 3:36 p Patient Name: DIAMOND VALLE Page [id number] at 1732 All edits/amendments must be made on the electronic document DICTATION DATE: 01/08/201731 LIVESTOCK HANDLER: KATHY 01/08/201731 RPT#: [id number] DC DATE: STATUS: ADM IN [facility] [address] [place] [address] END OF REPORT
--- NOTE | 2020-01-08 19:40 | NUR ---
I have reviewed this patient and I concur with the Shift Assessment completed by the Licensed Practical Nurse today this shift.
[2020-01-08 20:00] VITALS: BP 117/71
[2020-01-09] VITALS: BP 120/86
[2020-01-09 04:00] VITALS: BP 118/81
--- NOTE | 2020-01-09 06:23 | NUR ---
REFUSED AM LABS.
[2020-01-09 08:42] VITALS: BP 113/83
--- NOTE | 2020-01-09 09:55 | MORECARE ---
CASE MANAGEMENT DISCHARGE SUMMARY PATIENT: DIAMOND VALLE UNIT: [id number] ADM DATE: 01/06/20 AGE: 54 : 61 SEX: F ROOM/BED: D.2203 AUTHOR: MARCDOC PHYSICIAN: REFERRING PHYSICIAN: AMIRAH TURK MD DATE OF SERVICE: 01/09/20 Discharge Plan Patient Name: DIAMOND VALLE Facility: [facility]:[place] : 1965 Planned Disposition: Home with Hospice Anticipated Discharge Date: Discharge Date: Expected LOS: Initial Reviewer: [email or web address] Initial Review Date: 01/06/2020 Generated: 01/09/20 10:54 am Comments DCP- Discharge Planning Updated by [id number]: Essie Ng on 01/08/20 4:[address] Prieto with [facility] returned call and states that Dr. Villalpando has declined patient for their services. I spoke with the patient and she states to try other agencies that will accept her. I called and spoke with Sonali with [facility] and she will see patient in the morning after speaking with her medical office administrator. CM will continue to follow and assist with discharge planning/needs. DCP- Discharge Planning Updated by [id number]: Essie Ng on 01/08/20 3:[address] CM received an order for home hospice for pain management. I met with patient to discuss discharge planning/needs. She states she lives with her sister and 4 children. States she is completely dependent on her family. She had [facility] at home, but they will not accept her back. [facility] states there were issues with the pain medications not lasting as long as they should and suspicion that family members were using the patient's pain medication. I spoke with the patient and she would like to have [facility] when she discharges. I called and spoke to Prieto with [facility] and she states she will speak with [facility] before they can evaluate and admit the patient. Prieto states she doubts they will be able to accept the patient to their services, but will let me know something after speaking with medical office administrator. CM will continue to follow and assist with discharge planning/needs. DCP- Discharge Planning Updated by [id number]: Susi Leo on 01/07/20 5:[address] received a call from Gavin with [facility] on 01/05 stating that they will not be able to readmit patient on their services as far as compliance and philosophy. I will visit with patient this morning to see what her discharge plan will be External Providers External Provider: [facility] Next Contact Date: Service Request Date: Service Type: Resolution: Reviewer: Comments: Coverage Notice Reviewer: [id number] Ng Notice Issued Date-Time: 01/08/2020 16:20 Notice Type: IM Discharge Notice Notice Delivered To: Patient Relationship to Patient: Self Informatics Specialist Name: Delivery Method: HAND - Hand Delivered Rylee Days: Prior Verbal Notification: Recipient Understood Notice: Yes Recipient Signature: Yes Med Rec Note Co-signed by Attending: Coverage Notice Comment: IMM explained, signed, given, copy placed in MR Reviewer: ANISH Ng Notice Issued Date-Time: 01/08/2020 16:20 Notice Type: Patient Choice Letter Notice Delivered To: Patient Relationship to Patient: Self Informatics Specialist Name: Delivery Method: HAND - Hand Delivered Rylee Days: Prior Verbal Notification: Recipient Understood Notice: Yes Recipient Signature: Yes Med Rec Note Co-signed by Attending: Coverage Notice Comment: [facility] for [facility] Last DP export: 01/08/20 4:32 p Patient Name: DIAMOND VALLE Page [phone] at 0955 All edits/amendments must be made on the electronic document DICTATION DATE: 01/09/20953 ENVIRONMENTAL SERVICES FLOOR TECH: KATHY 01/09/20953 RPT#: [id number] DC DATE: STATUS: ADM IN [facility] [address] [place] [address] END OF REPORT
--- NOTE | 2020-01-09 10:07 | MORECARE ---
CASE MANAGEMENT DISCHARGE SUMMARY PATIENT: DIAMOND VALLE UNIT: [id number] ADM DATE: 01/06/20 AGE: 54 : 61 SEX: F ROOM/BED: D.2203 AUTHOR: MARC,DOC PHYSICIAN: REFERRING PHYSICIAN: AMIRAH TURK MD DATE OF SERVICE: 01/09/20 Discharge Plan Patient Name: DIAMOND VALLE Facility: [facility]:[place] : 1965 Planned Disposition: Home with Hospice Anticipated Discharge Date: Discharge Date: Expected LOS: Initial Reviewer: [id number] Initial Review Date: 01/06/2020 Generated: 01/09/20 11:07 am Comments DCP- Discharge Planning Updated by [email or web address]: Essie Ng on 01/09/20 9:[address] Patient is wanting to go home. I called Sonali with [facility]. Sonali states she can be here in 30 minutes to meet with the patient. I informed the patient. She agrees to meet with [facility] hospice, but states Sonali can meet her at her home if she is not in the hospital when she gets here. I informed Sonali and Sonali states she can meet patient at her home if she has already been discharged. Jackie informed that patient wanted to go home even if that meant she did not have an accepting hospice agency. I spoke with patient's daughter while I was in the patient's room and daughter states to do whatever her mother wishes, even if that meant she did not have a hospice agency following her. CM will continue to follow and assist with discharge planning/needs. DCP- Discharge Planning Updated by [email or web address]: Essie Ng on 01/08/20 4:[address] Prieto with [facility] returned call and states that Dr. Villalpando has declined patient for their services. I spoke with the patient and she states to try other agencies that will accept her. I called and spoke with Sonali with [facility] and she will see patient in the morning after speaking with her medical van driver. CM will continue to follow and assist with discharge planning/needs. DCP- Discharge Planning Updated by [id number]: Essie Ng on 01/08/20 3:[address] CM received an order for home hospice for pain management. I met with patient to discuss discharge planning/needs. She states she lives with her sister and 4 children. States she is completely dependent on her family. She had [facility] at home, but they will not accept her back. [facility] states there were issues with the pain medications not lasting as long as they should and suspicion that family members were using the patient's pain medication. I spoke with the patient and she would like to have [facility] when she discharges. I called and spoke to Prieto with [facility] and she states she will speak with [facility] before they can evaluate and admit the patient. Prieto states she doubts they will be able to accept the patient to their services, but will let me know something after speaking with medical van driver. CM will continue to follow and assist with discharge planning/needs. DCP- Discharge Planning Updated by [id number]: Susi Leo on 01/07/20 5:[address] received a call from Gavin with [facility] on 01/05 stating that they will not be able to readmit patient on their services as far as compliance and philosophy. I will visit with patient this morning to see what her discharge plan will be Coverage Notice Reviewer: [id number] Christopher Ng Notice Issued Date-Time: 01/08/2020 16:20 Notice Type: IM Discharge Notice Notice Delivered To: Patient Relationship to Patient: Self Patient Insurance Clerk Name: Delivery Method: HAND - Hand Delivered Rylee Days: Prior Verbal Notification: Recipient Understood Notice: Yes Recipient Signature: Yes Med Rec Note Co-signed by Attending: Coverage Notice Comment: IMM explained, signed, given, copy placed in MR Reviewer: [id number] Christopher Ng Notice Issued Date-Time: 01/08/2020 16:20 Notice Type: Patient Choice Letter Notice Delivered To: Patient Relationship to Patient: Self Patient Insurance Clerk Name: Delivery Method: HAND - Hand Delivered Rylee Days: Prior Verbal Notification: Recipient Understood Notice: Yes Recipient Signature: Yes Med Rec Note Co-signed by Attending: Coverage Notice Comment: [facility] for [facility] Last DP export: 01/09/20 8:55 a Patient Name: DIAMOND VALLE Page [phone] at 1007 All edits/amendments must be made on the electronic document DICTATION DATE: 01/09/20 1007 GRAIN PROCESSOR: DM 01/09/20 1007 RPT#: [id number] DC DATE: STATUS: ADM IN [facility] [address] [place] [address] END OF REPORT
--- NOTE | 2020-01-09 11:18 | NUR ---
APPLICATION INTEGRATION ARCHITECT(MORENA) MYSELF AND PT'S SISTER ON SPEAKER PHONE SPOKE WITH PT. INFORMED ALL THAT [facility] WILL BE HERE THIS AFTERNOON. ALSO INFORMED PT IF SHE LEAVES AMA, THAT NO PAIN MEDS WILL BE PRESCRIBED. PT AGREES TO STAY UNTIL HOSPICE EVALUATES HER.
--- NOTE | 2020-01-09 14:00 | NUR ---
DISCHARGE PAPERWORK SIGNED, ALL QUESTIONS ANSWERED. IV TO RIGHT FOREARM DC'D, TIP INTACT. ESCORTED OUT VIA WHEELCHAIR.
--- NOTE | 2020-01-09 14:18 | MORECARE ---
CASE MANAGEMENT DISCHARGE SUMMARY PATIENT: DIAMOND VALLE UNIT: [id number] ADM DATE: 01/06/20 AGE: 54 : 61 SEX: F ROOM/BED: D.2203 AUTHOR: MARC,DOC PHYSICIAN: REFERRING PHYSICIAN: AMIRAH TURK MD DATE OF SERVICE: 01/09/20 Discharge Plan Patient Name: DIAMOND VALLE Facility: [facility]:[place] : 1965 Planned Disposition: Home with Hospice Anticipated Discharge Date: Discharge Date: 01/09/2020 Expected LOS: Initial Reviewer: [id number] Initial Review Date: 01/06/2020 Generated: 01/09/20 3:18 pm Comments DCP- Discharge Planning Updated by [id number]: Essie Ng on 01/09/20 1:[address] Sonali with [facility] came and evaluated patient prior to discharge. Sonali states patient's sister was on the phone during evaluation. Patient states she does not want hospice at this time because she is going to Dr. Adkins's office this week to speak to him about getting her chemotherapy started. Patient states that she has pain medicine for home use. Sonali tells me that the sister confirmed that she has 5 days of pain medication left. Sonali states she will submit the paperwork for review and follow along. States they will need to have a team meeting and f/u with patient and her needs prior to admission to [facility]. Home today, sister to pickle processor. DCP- Discharge Planning Updated by [email or web address]: Essie Ng on 01/09/20 9:[address] Patient is wanting to go home. I called Sonali with [facility]. Sonali states she can be here in 30 minutes to meet with the patient. I informed the patient. She agrees to meet with [facility], but states Sonali can meet her at her home if she is not in the hospital when she gets here. I informed Sonali and Sonali states she can meet patient at her home if she has already been discharged. Jackie informed that patient wanted to go home even if that meant she did not have an accepting hospice agency. I spoke with patient's daughter while I was in the patient's room and daughter states to do whatever her mother wishes, even if that meant she did not have a hospice agency following her. CM will continue to follow and assist with discharge planning/needs. DCP- Discharge Planning Updated by [id number]: Essie Berenice on 01/08/20 4:[address] Prieto with [facility] returned call and states that Dr. Villalpando has declined patient for their services. I spoke with the patient and she states to try other agencies that will accept her. I called and spoke with Sonali with [facility] and she will see patient in the morning after speaking with her medical delivery technician. CM will continue to follow and assist with discharge planning/needs. DCP- Discharge Planning Updated by [id number]: Essie Berenice on 01/08/20 3:[address] CM received an order for home hospice for pain management. I met with patient to discuss discharge planning/needs. She states she lives with her sister and 4 children. States she is completely dependent on her family. She had [facility] at home, but they will not accept her back. [facility] states there were issues with the pain medications not lasting as long as they should and suspicion that family members were using the patient's pain medication. I spoke with the patient and she would like to have [facility] when she discharges. I called and spoke to Prieto with [facility] and she states she will speak with [facility] before they can evaluate and admit the patient. Prieto states she doubts they will be able to accept the patient to their services, but will let me know something after speaking with medical delivery technician. CM will continue to follow and assist with discharge planning/needs. DCP- Discharge Planning Updated by [email or web address]: Susi Leo on 01/07/20 5:[address] received a call from Gavin with [facility] on 01/05 stating that they will not be able to readmit patient on their services as far as compliance and philosophy. I will visit with patient this morning to see what her discharge plan will be Coverage Notice Reviewer: [id number] - Essie Berenice Notice Issued Date-Time: 01/08/2020 16:20 Notice Type: IM Discharge Notice Notice Delivered To: Patient Relationship to Patient: Self Janitor Head Name: Delivery Method: HAND - Hand Delivered Rylee Days: Prior Verbal Notification: Recipient Understood Notice: Yes Recipient Signature: Yes Med Rec Note Co-signed by Attending: Coverage Notice Comment: IMM explained, signed, given, copy placed in MR Reviewer: [id number] Christopher Essie Carterángel Notice Issued Date-Time: 01/08/2020 16:20 Notice Type: Patient Choice Letter Notice Delivered To: Patient Relationship to Patient: Self Janitor Head Name: Delivery Method: HAND - Hand Delivered Rylee Days: Prior Verbal Notification: Recipient Understood Notice: Yes Recipient Signature: Yes Med Rec Note Co-signed by Attending: Coverage Notice Comment: [facility] for [facility] Last DP export: 01/09/20 9:07 a Patient Name: DIAMOND VALLE Page [phone] at 1418 All edits/amendments must be made on the electronic document DICTATION DATE: 01/09/201417 PATTERNMAKER: KATHY 01/09/201417 RPT#: [id number] DC DATE:01/09/20 STATUS: DIS IN [facility] [address] [place] [address] END OF REPORT
--- NOTE | 2020-01-10 08:29 | MORECARE ---
CASE MANAGEMENT DISCHARGE SUMMARY PATIENT: DIAMOND VALLE UNIT: [id number] ADM DATE: 01/06/20 AGE: 54 : 61 SEX: F ROOM/BED: D.2203 AUTHOR: MARC,DOC PHYSICIAN: REFERRING PHYSICIAN: AMIRAH TURK MD DATE OF SERVICE: 01/10/20 Discharge Plan Patient Name: DIAMOND VALLE Facility: [facility]:[place] : 1965 Planned Disposition: Home with Hospice Anticipated Discharge Date: Discharge Date: 01/09/2020 Expected LOS: Initial Reviewer: [id number] Initial Review Date: 01/06/2020 Generated: 01/10/20 9:28 am Comments DCP- Discharge Planning Updated by [email or web address]: Essie Ng on 01/09/20 1:[address] Sonali with [facility] came and evaluated patient prior to discharge. Sonali states patient's sister was on the phone during evaluation. Patient states she does not want hospice at this time because she is going to Dr. Adkins's office this week to speak to him about getting her chemotherapy started. Patient states that she has pain medicine for home use. Sonali tells me that the sister confirmed that she has 5 days of pain medication left. Sonali states she will submit the paperwork for review and follow along. States they will need to have a team meeting and f/u with patient and her needs prior to admission to [facility]. Home today, sister to spanish moss picker. DCP- Discharge Planning Updated by [id number]: Essie Ng on 01/09/20 9:[address] Patient is wanting to go home. I called Sonali with [facility]. Sonali states she can be here in 30 minutes to meet with the patient. I informed the patient. She agrees to meet with [facility], but states Sonali can meet her at her home if she is not in the hospital when she gets here. I informed Sonali and Sonali states she can meet patient at her home if she has already been discharged. Jackie informed that patient wanted to go home even if that meant she did not have an accepting hospice agency. I spoke with patient's daughter while I was in the patient's room and daughter states to do whatever her mother wishes, even if that meant she did not have a hospice agency following her. CM will continue to follow and assist with discharge planning/needs. DCP- Discharge Planning Updated by [id number]: Essie Berenice on 01/08/20 4:[address] Prieto with [facility] returned call and states that Dr. Villalpando has declined patient for their services. I spoke with the patient and she states to try other agencies that will accept her. I called and spoke with Sonali with [facility] and she will see patient in the morning after speaking with her medical records tech. CM will continue to follow and assist with discharge planning/needs. DCP- Discharge Planning Updated by [id number]: Essie Berenice on 01/08/20 3:[address] CM received an order for home hospice for pain management. I met with patient to discuss discharge planning/needs. She states she lives with her sister and 4 children. States she is completely dependent on her family. She had [facility] at home, but they will not accept her back. [facility] states there were issues with the pain medications not lasting as long as they should and suspicion that family members were using the patient's pain medication. I spoke with the patient and she would like to have [facility] when she discharges. I called and spoke to Prieto with [facility] and she states she will speak with [facility] before they can evaluate and admit the patient. Prieto states she doubts they will be able to accept the patient to their services, but will let me know something after speaking with medical records tech. CM will continue to follow and assist with discharge planning/needs. DCP- Discharge Planning Updated by [id number]: Susi Leo on 01/07/20 5:[address] received a call from Gavin with [facility] on 01/05 stating that they will not be able to readmit patient on their services as far as compliance and philosophy. I will visit with patient this morning to see what her discharge plan will be Coverage Notice Reviewer: [id number] - Essie Berenice Notice Issued Date-Time: 01/08/2020 16:20 Notice Type: IM Discharge Notice Notice Delivered To: Patient Relationship to Patient: Self Executive Coordinator Name: Delivery Method: HAND - Hand Delivered Rylee Days: Prior Verbal Notification: Recipient Understood Notice: Yes Recipient Signature: Yes Med Rec Note Co-signed by Attending: Coverage Notice Comment: IMM explained, signed, given, copy placed in MR Reviewer: [id number] Christopher Essie Carterángel Notice Issued Date-Time: 01/08/2020 16:20 Notice Type: Patient Choice Letter Notice Delivered To: Patient Relationship to Patient: Self Executive Coordinator Name: Delivery Method: HAND - Hand Delivered Rylee Days: Prior Verbal Notification: Recipient Understood Notice: Yes Recipient Signature: Yes Med Rec Note Co-signed by Attending: Coverage Notice Comment: [facility] for [facility] Last DP export: 01/09/20 1:18 p Patient Name: DIAMOND VALLE Page [phone] at 0829 All edits/amendments must be made on the electronic document DICTATION DATE: 01/10/20828 HAT AND CAP SEWER: KATHY 01/10/20828 RPT#: [id number] DC DATE:01/09/20 STATUS: DIS IN [facility] [address] [place] [address] END OF REPORT
== END 2020-01-09 14:02 | disposition home or self-care (01) | DRG 393 ==
LOC: D.ER 04:11 → D.MS 07:28 → D.ER 07:55 → D.MS 01-09 14:02
PROVIDERS: Family Medicine; ADMIT Family Medicine; ATTEND Family Medicine
DX: K63.2 Fistula of intestine (principal); E43 Unspecified severe protein-calorie malnutrition; C16.9 Malignant neoplasm of stomach, unspecified; C78.6 Secondary malignant neoplasm of retroperitoneum and peritoneum; E87.1 Hypo-osmolality and hyponatremia; Z68.1 Body mass index [BMI] 19.9 or less, adult; I10 Essential (primary) hypertension; D75.89 Other specified diseases of blood and blood-forming organs; K76.0 Fatty (change of) liver, not elsewhere classified; Z86.73 Personal history of transient ischemic attack (TIA), and cerebral infarction without residual deficits

== ENCOUNTER 2020-01-19 19:07 | Inpatient (IN) | payer MEDICARE, MEDICAID ==
[~2020-01-19] VITALS: Ht 142.2 cm; Wt 39.9 kg
[~2020-01-19 19:07] MED LIST changes: +OXYCODONE HCL10 MG PO; +XANAX1 MG PO
--- NOTE | 2020-01-19 19:26 | NUR ---
CONTACTED [facility] AT THIS TIME, U.S. REPRESENTATIVE STATED A NURSE WOULD BE CALLING BACK. [phone]
--- NOTE | 2020-01-19 19:30 | NUR ---
OMAR DYKES FROM [facility] CALLED AT THIS TIME. NURSE NOTIFIED THAT PT FAMILY SIGNED REVOCATION FORMS TODAY SO PT COULD COME TO HOSPITAL.
[2020-01-19 20:00] VITALS: BP 118/85
--- NOTE | 2020-01-19 20:00 | NUR ---
PT COLOSTOMY BAG LEAKING AND FECES COVERING PT'S ABDOMEN UPON ARRIVAL. PT CLEANED WITH SOAP AND WATER AND CLEAN DRY GOWN PUT ON PT. PT'S SOILED CLOTHING PLACED IN PT'S BELONGINGS BAG. NEW COLOSTOMY BAG PLACED ON PT. DRY STERILE 4X4 GAUZE PLACED OVER PT'S DEHISCED ABDOMINAL WOUNDS PER EDP ORDERS.
[2020-01-19 20:03] LABS: BASOPHILS 0.6 % (0-2); EOSINOPHILS 0.2 % (0-7); HEMATOCRIT 33.7 % (36.0-48.0); HEMOGLOBIN 10.6 g/dL (12-16); IMMATURE GRANULOCYTES 0.8 % (0-5); LYMPHOCYTES 29.4 % (15-50); MCH 32.7 pg (26.0-34.0); MCHC 31.5 g/dL (31.0-37.0); MEAN PLATELET VOLUME 10.3 fL (7.4-10.4); MONOCYTES 11.3 % (2-11); NEUTROPHILS 57.7 % (40-80); RBC 3.24 10x6/uL (4.00-5.40); WBC 13.3 10x3/uL (4.8-10.8)
[2020-01-19 20:12] LABS: PLATELET COUNT 119 10x3/uL (130-400)
--- NOTE | 2020-01-19 22:05 | NUR ---
ATTEMPTED TO CALL REPORT TO FLOOR, NURSE UNAVAILABLE AT THIS TIME.
--- NOTE | 2020-01-19 22:15 | NUR ---
SPOKE WITH PT'S SISTER KARIS VALLE ON THE PHONE WHO IS LISTED PT'S EMERGENCY CONTACT, INFORMED HER OF PT STATUS AND WILL CALL BACK WITH PT ROOM NUMBER WHEN PT IS ASSIGNED ONE.
[2020-01-19 23:02] LABS: APTT 36.1 SECONDS (22.8-39.4); INR 1.55 (0.85-1.17); PROTIME 18.4 SECONDS (11.6-15.0)
--- NOTE | 2020-01-19 23:13 | NUR ---
PT'S SISTER KARIS VALLE CONTACTED AT , STATES THAT PT IS A DNR BUT THEY "NEVER GOT AROUND TO DOING THE PAPERWORK." EDP NOTIFIED.
[2020-01-19 23:23] LABS: ALBUMIN 1.2 g/dL (3.4-5.0); ALKALINE PHOSPHATASE 205 U/L (30-120); ALT (SGPT) 26 U/L (10-68); CALC OSMOLALITY 290 mosm/kg (275-300); CARBON DIOXIDE 26.3 mmol/L (21.0-32.0); CHLORIDE - SERUM 112 mmol/L (98-107); CKMB 0.2 U/L (0.0-3.6); CREATINE KINASE 50 UL (21-215); CREATININE - SERUM 0.6 mg/dL (0.6-1.3); GLUCOSE 105 mg/dL (74-106); MAGNESIUM - SERUM 1.2 mg/dL (1.8-2.4); POTASSIUM - SERUM 3.5 mmol/L (3.5-5.1); PROTEIN - SERUM 5.4 g/dL (6.4-8.2); SODIUM 145 mmol/L (136-145); THYROID STIMULATING HORMONE 0.55 uIU/mL (0.36-3.74); UREA NITROGEN 17 mg/dL (7-18); eGFR NON AFRICAN AMERICAN > 90 mL/min (90-120)
[2020-01-19 23:28] LABS: TROPONIN-I < 0.017 ng/mL (0.000-0.060)
[2020-01-19 23:29] LABS: CALCIUM 6.6 mg/dL (8.5-10.1)
[2020-01-20 01:02] VITALS: BP 149/84; BMI 19.7
[2020-01-20 09:07] VITALS: BP 127/91
--- NOTE | 2020-01-20 09:22 | NUR ---
SHE IS CONFUSED, YELLING I WANT TO GO HOME. THE CALL LIHGT IS WITHIN REACH.THE CHAIR ALARM IS ON.
[2020-01-20 10:21] LABS: BASOPHILS 0.2 % (0-2); EOSINOPHILS 0.1 % (0-7); HEMATOCRIT 30.5 % (36.0-48.0); HEMOGLOBIN 9.5 g/dL (12-16); IMMATURE GRANULOCYTES 0.7 % (0-5); LYMPHOCYTES 19.1 % (15-50); MCH 32.5 pg (26.0-34.0); MCHC 31.1 g/dL (31.0-37.0); MCV 104.5 fL (80.0-100.0); MEAN PLATELET VOLUME 12.6 fL (7.4-10.4); MONOCYTES 9.7 % (2-11); NEUTROPHILS 70.2 % (40-80); PLATELET COUNT 131 10x3/uL (130-400); RBC 2.92 10x6/uL (4.00-5.40); RDW 23.2 % (11.5-14.5); WBC 16.6 10x3/uL (4.8-10.8)
--- NOTE | 2020-01-20 12:30 | NUR ---
SHE IS TAKING 0FF THE OSTOMY BAG, THE DRESSING, UNHOOKING HER IV. THE CALL LIGHT IS IN PLACE, THE BED ALARM IS ON. SHE IS CONFUSED.
[2020-01-20 13:36] VITALS: BMI 19.7
--- NOTE | 2020-01-20 15:53 | NUR ---
HER SISTER IS WANTING SOMEONE TO CALL HER ABOUT THE THE PATIENT'S CONFUSING. [phone].
[2020-01-20 17:56] VITALS: BP 131/89
--- NOTE | 2020-01-20 19:47 | NUR ---
PT LYING IN BED RESTING WITH EYES CLOSED. NO SIGNS OF DISTRESS NOTED. RESPIRATIONS EVEN AND UNLABORED. CALL LIGHT WITH IN REACH WILL CONTINUE TO MONITOR
[2020-01-20 20:00] VITALS: BP 100/79
[2020-01-21] VITALS: BP 102/43
[2020-01-21 04:00] VITALS: BP 86/54
--- NOTE | 2020-01-21 04:57 | NUR ---
PT LYING IN BED RESTING WITH EYES CLOSED. PT REPOSITIONED FOR COMFORT THROUGH OUT THE NIGHT FAMILY IS AT BEDSIDE. DRESSING CHANGED TO ABD. PT HAS NO COMPLAINTS AT THIS TIME. WILL CONTINUE TO MONITOR
[2020-01-21 07:19] LABS: ALBUMIN 1.1 g/dL (3.4-5.0); ALKALINE PHOSPHATASE 191 U/L (30-120); ALT (SGPT) 29 U/L (10-68); BILIRUBIN - TOTAL 1.07 mg/dL (0.2-1.3); CARBON DIOXIDE 25.2 mmol/L (21.0-32.0); CHLORIDE - SERUM 114 mmol/L (98-107); GLUCOSE 81 mg/dL (74-106); PROTEIN - SERUM 4.8 g/dL (6.4-8.2); SODIUM 144 mmol/L (136-145)
--- NOTE | 2020-01-21 07:25 | NUR ---
PT IS RESTING IN BED WITH EYES OPEN. RESPIRATIONS ARE EVEN/SHALLOW AND UNLABORED. PT WITHOUT IV ACCESS. PT REMOVED RIGHT NECK PIV WITH CATHETER TIP INTACT. DRESSING APPLIED. PT IS CONFUSED TO SITUATION AND TIME. PT REORIENTED TO SITUATION AND TIME. ALL FALL PRECAUTIONS IN PLACE. PT REPOSITIONED TO RIGHT SIDE AT THIS TIME. PILLOWS AND BLANKETS USED FOR POSITIONING. DRESSING TO LEFT BUTTOCK NOTED AND IS CDI. DRESSING TO ABDOMEN IS NOTED AND CDI. COLOSTOMY TO LLQ INPLACE WITH SMALL AMOUNT OF BROWN LIQUID FECAL MATTER NOTED TO COLOSTOMY BAG. PT DENIES PRESENCE OF N/V/PAIN AT THIS TIME. BED IS IN THE LOWEST POSITION. CALL LIGHT AND BEDSIDE TABLE ARE WITHIN REACH. SIDE RAILS X 2. PT DENIES FURTHER NEEDS. WILL CONT TO MONITOR.
[2020-01-21 07:41] LABS: CALC OSMOLALITY 284 mosm/kg (275-300); CREATININE - SERUM 0.4 mg/dL (0.6-1.3); UREA NITROGEN 10 mg/dL (7-18); eGFR NON AFRICAN AMERICAN > 90 mL/min (90-120)
--- NOTE | 2020-01-21 07:42 | NUR ---
CRITICAL LAB RECD. SEE LAB RESULTS. ANAI HANLEY APRN PAGED TO NOTIFY OF CRITICAL LAB RESULT. CRITICAL LAB FORM FILLED OUT AND PLACED IN PT CHART.
[2020-01-21 07:43] LABS: CALCIUM 6.6 mg/dL (8.5-10.1); HEMATOCRIT 25.8 % (36.0-48.0); HEMOGLOBIN 8.1 g/dL (12-16); MCH 31.8 pg (26.0-34.0); MCHC 31.4 g/dL (31.0-37.0); MEAN PLATELET VOLUME 11.9 fL (7.4-10.4); POTASSIUM - SERUM 2.8 mmol/L (3.5-5.1); RBC 2.55 10x6/uL (4.00-5.40); RDW 21.7 % (11.5-14.5); WBC 13.6 10x3/uL (4.8-10.8)
[2020-01-21 07:45] LABS: MCV 101.2 fL (80.0-100.0); PLATELET COUNT 79 10x3/uL (130-400)
--- NOTE | 2020-01-21 07:51 | NUR ---
PT PULLED IV OUT OF RIGHT JUGGLER. CALL LIGHT WITH IN REACH. PT REPOSITIONED FOR COMFORT. WILL CONTINUE TO MONITOR
--- NOTE | 2020-01-21 07:52 | NUR ---
COLOSTOMY BAG CHANGED. PT TOLERATED WELL.
--- NOTE | 2020-01-21 11:15 | NUR ---
VASCULAR ACCESS NURSE AT BEDSIDE TO OBTIAN IV ACCESS.
--- NOTE | 2020-01-21 12:06 | NUR ---
COLOSTOMY CHANGED. LINENES CHANGED. DRESSING TO ABDOMEN CHANGED. HOANG ALARM IS ON. BED IS IN THE LOWEST POSITION. CALL LIGHT AND BEDSIDE TABLE ARE WITHIN REACH. SIDE RAILS X 2. PT DENIES FURTHER NEEDS. WILL CONT TO MONITOR.
[2020-01-21 12:24] LABS: LYMPHOCYTES 20 % (15-50); MONOCYTES 4 % (2-11); NEUTROPHILS 74 % (40-80); PLATELET ESTIMATE DECREASED; SMUDGE CELLS OCC
--- NOTE | 2020-01-21 13:46 | NUR ---
SPOKE WITH PT CORNELIUS TO ADDRESS CODE STATUS PER NURSE MESSAGE. CORNELIUS VALLE STATES "I AM GOING TO HAVE TO TALK WITH HER FAMILY ABOUT THAT. I DONT KNOW". PT CORNELIUS STATES "I WILL BE UP THERE A LITTLE BIT LATER AND WILL TALK TO YOU ABOUT IT THEN".
--- NOTE | 2020-01-21 14:44 | NUR ---
PT WITH INCREASED IRRITAITON AND THROWING FOOD AND MEAL TRAY CONTENTS AT THIS NURSE. PT ENCOUIRAGED TO CALM DOWN AND REDIRECTED WITH PLAN OF CARE. PT REFUSING TO ALLOW THIS NURSE TO VISUALIZE COLOSTOMY FOR EMPTYING. ALL FALL PRECAUTIONS IN PLACE. BED IS IN THE LOWEST POSITION. CALL LIGHT AND BEDSIDE TABLE ARE WITHIN REACH. SIDE RAILS X 2. PT DENIES FURTHER NEEDS. WILL CONT TO MONITOR.
[2020-01-21 15:13] VITALS: BP 108/73
--- NOTE | 2020-01-21 15:24 | NUR ---
PT FAMILY MEMBER AT BEDSIDE. PT SEEN WITH TONI FLORES NOTIFIED AND EDUCATED ON PT CLEAR LIQUID DIET STATE. PT FAMILY MEMBER VERBALIZES UNDERSTANDING AND STATES "IT IS ONLY WATER". PT FAMILY MEMBER STATES THE THE PT DID NOT EAT ANYTHING OTHER THAN APPROVED BY CLEAR LIQUID DIET. ALL FALL PRECAUTIONS IN PLACE. BED IS IN THE LOWEST POSITION. CALL LIGHT AND BEDSIDE TABLE ARE WITHIN REACH. SIDE RAILS X 2. PT DENIES FURTHER NEEDS. WILL CONT TO MONITOR.
[2020-01-21 15:25] LABS: BILIRUBIN NEGATIVE (NEGATIVE); GLUCOSE NEGATIVE (NEGATIVE); KETONE NEGATIVE (NEGATIVE); NITRITE NEGATIVE (NEGATIVE); UROBILINOGEN NORMAL (NORMAL)
[2020-01-21 15:26] LABS: BACTERIA FEW /hpf (NEGATIVE); EPITHELIAL CELLS 0-5 /hpf (0-5); RED CELLS - URINE 0-5 /hpf (0-5); YEAST <1+ /hpf (NONE SEEN)
[2020-01-21 15:27] VITALS: BP 105/74
[2020-01-21 16:19] LABS: UDS - AMPHET NEGATIVE QUAL (NEGATIVE); UDS - BARB NEGATIVE QUAL (NEGATIVE); UDS - BENZO POSITIVE QUAL (NEGATIVE); UDS - COCAINE NEGATIVE QUAL (NEGATIVE); UDS - OPIATE NEGATIVE QUAL (NEGATIVE); UDS - PCP NEGATIVE QUAL (NEGATIVE); UDS - THC NEGATIVE QUAL (NEGATIVE)
--- NOTE | 2020-01-21 16:42 | NUR ---
ADHESIVE BANDAGE MAKING OPERATOR PLACED ON PT PER ORDER
[2020-01-21 18:43] VITALS: BP 136/62
--- NOTE | 2020-01-21 18:46 | NUR ---
COLOSTOMY LEAKING. COLOSTOMY BAG CHANGED. PT CLEANED. FULL LINEN AND GOWN CHANGE COMPLETED. DRESSING TO ABDOMEN CHANGED WITH 4X4 AND ABD PAD. FALL PRECAUTIONS IN PLACE. BED IS IN THE LOWEST POSITION. CALL LIGHT AND BEDSIDE TABLE ARE WITHIN REACH. SIDE RAILS X 2. PT DENIES FURTHER NEEDS. WILL CONT TO MONITOR.
[2020-01-21 20:00] VITALS: BP 120/92
--- NOTE | 2020-01-21 20:00 | NUR ---
PATIENT RESTING IN BED WITH EYES CLOSED. NO S/S OF ACUTE DISTRESS. NO C/O AT THIS TIME. PATIENT IS CONFUSED TO TIME AND SITUATION. PATIENT HAS RIGHT WRIST IV, NORMAL SALINE @ 150 ML/HR. IV IS PATENT WITHOUT REDNESS, SWELLING, OR TENDERNESS. PATIENT HAS A COLOSTOMY, AND TWO OPENINGS MIDLINE ABDOMEN THAT ALSO SECRETE BOWEL CONTENTS. THE TWO MIDLINE OPENINGS ARE COVERED WITH 4X4 AND AN ABDOMINAL PAD OVER THAT. DRESSING WAS CHANGED, C/D/I. PATIENT HAS TELEMETRY: 91 SINUS RYTHM. PATIENT HAS A STAGE 2 PRESSURE UCLER TO LEFT BUTTOCKS DRESSING C/D/I. PATIENT IS INTERMITTENTLY INCONTINENT. CALL LIGHT WITHIN REACH. BED ALARM ON. WILL CONTINUE TO MONITOR.
--- NOTE | 2020-01-22 02:56 | NUR ---
I have reviewed this patient and I concur with the Shift Assessment completed by the Licensed Practical Nurse today this shift.
[2020-01-22 04:00] VITALS: BP 137/81
[2020-01-22 07:53] LABS: HEMOGLOBIN 9.7 g/dL (12-16); MCH 32.4 pg (26.0-34.0); MCHC 32.3 g/dL (31.0-37.0); MCV 100.3 fL (80.0-100.0); PLATELET COUNT 67 10x3/uL (130-400); RBC 2.99 10x6/uL (4.00-5.40); RDW 21.1 % (11.5-14.5); WBC 10.3 10x3/uL (4.8-10.8)
[2020-01-22 08:10] LABS: ALBUMIN 1.2 g/dL (3.4-5.0); ALKALINE PHOSPHATASE 240 U/L (30-120); ALT (SGPT) 31 U/L (10-68); BILIRUBIN - TOTAL 1.19 mg/dL (0.2-1.3); CARBON DIOXIDE 24.6 mmol/L (21.0-32.0); CHLORIDE - SERUM 108 mmol/L (98-107); CREATININE - SERUM 0.5 mg/dL (0.6-1.3); PROTEIN - SERUM 5.7 g/dL (6.4-8.2); SODIUM 140 mmol/L (136-145); eGFR NON AFRICAN AMERICAN > 90 mL/min (90-120)
[2020-01-22 08:11] LABS: LYMPHOCYTES 24 % (15-50); MONOCYTES 3 % (2-11); NEUTROPHILS 73 % (40-80)
[2020-01-22 08:12] LABS: PLATELET ESTIMATE DECREASED; TARGET CELLS 1+
[2020-01-22 08:13] LABS: CALC OSMOLALITY 273 mosm/kg (275-300); CALCIUM 6.6 mg/dL (8.5-10.1); GLUCOSE 64 mg/dL (74-106); MAGNESIUM - SERUM 0.9 mg/dL (1.8-2.4); POTASSIUM - SERUM 2.6 mmol/L (3.5-5.1); SCHISTOCYTES OCC; TEAR DROP CELLS OCC; UREA NITROGEN 4 mg/dL (7-18)
--- NOTE | 2020-01-22 08:30 | NUR ---
LAB CALLED WITH CRITICALS, OF GLUCOSE 64, PT MEAL IN ROOM, MAG 0.9 AND K 2.6 WILL BE REPLACED PER PROTOCOL
--- NOTE | 2020-01-22 08:40 | NUR ---
RESTING IN BED, NO DISTRESS NOTED, IV INFUSING, CONT TO MONITOR
[2020-01-22 08:41] VITALS: BP 128/89
--- NOTE | 2020-01-22 10:28 | NUR ---
COLOSTOMY CHANGED, DRESSING TO ABD CHANGED, OPERATOR WEAPON LOCATING RADAR HERE TO SEE PT AND TALKED WITH , REPLACING MG PER IV
[2020-01-22 12:16] VITALS: BP 122/73
[2020-01-22 15:41] LABS: POTASSIUM - SERUM 3.9 mmol/L (3.5-5.1)
[2020-01-22 16:15] VITALS: BP 116/86
[2020-01-22 20:00] VITALS: BP 105/78
--- NOTE | 2020-01-22 20:00 | NUR ---
PATIENT RESTING IN BED WITH EYES CLOSED. NO S/S OF ACUTE DISTRESS. NO C/O AT THIS TIME. PATIENT HAS RIGHT WRIST IV, NORMAL SALINE @ 150 ML/HR. IV IS PATENT WITHOUT REDNESS, SWELLING, OR TENDERNESS. PATIENT HAS COLOSTOMY. PATIENT HAS OLD MIDLINE INCISION THAT HAS TWO OPENINGS THAT LEAK BOWEL CONTENTS, DRESSING C/D/I. PATIENT HAS A STAGE 2 SORE ON HER LEFT BUTTOCKS, DRESSING C/D/I. PATIENT IS INTERMITTENTLY INCONTINENT OF BLADDER. CALL LIGHT WITHIN REACH. BED ALARM ON. WILL CONTINUE TO MONITOR.
[2020-01-23] VITALS: BP 104/75
--- NOTE | 2020-01-23 03:31 | NUR ---
I have reviewed this patient and I concur with the Shift Assessment completed by the Licensed Practical Nurse today this shift.
[2020-01-23 04:00] VITALS: BP 95/64
[2020-01-23 06:34] LABS: ALKALINE PHOSPHATASE 195 U/L (30-120); ALT (SGPT) 29 U/L (10-68); BILIRUBIN - TOTAL 0.67 mg/dL (0.2-1.3); CARBON DIOXIDE 21.7 mmol/L (21.0-32.0); CHLORIDE - SERUM 108 mmol/L (98-107); CREATININE - SERUM 0.5 mg/dL (0.6-1.3); GLUCOSE 85 mg/dL (74-106); MAGNESIUM - SERUM 1.5 mg/dL (1.8-2.4); PROTEIN - SERUM 4.6 g/dL (6.4-8.2); SODIUM 138 mmol/L (136-145); eGFR NON AFRICAN AMERICAN > 90 mL/min (90-120)
[2020-01-23 06:36] LABS: CALC OSMOLALITY 270 mosm/kg (275-300); UREA NITROGEN 2 mg/dL (7-18)
[2020-01-23 06:37] LABS: POTASSIUM - SERUM 2.7 mmol/L (3.5-5.1)
[2020-01-23 06:53] LABS: BASOPHILS 0.2 % (0-2); EOSINOPHILS 0.7 % (0-7); HEMATOCRIT 27.3 % (36.0-48.0); HEMOGLOBIN 8.8 g/dL (12-16); IMMATURE GRANULOCYTES 0.6 % (0-5); MCH 32.4 pg (26.0-34.0); MCHC 32.2 g/dL (31.0-37.0); MCV 100.4 fL (80.0-100.0); MONOCYTES 8.2 % (2-11); NEUTROPHILS 64.3 % (40-80); RBC 2.72 10x6/uL (4.00-5.40); RDW 20.8 % (11.5-14.5); WBC 10.1 10x3/uL (4.8-10.8)
[2020-01-23 06:57] LABS: PLATELET COUNT 41 10x3/uL (130-400)
[2020-01-23 07:29] LABS: PLATELET ESTIMATE DECREASED
[2020-01-23 08:10] VITALS: BP 127/88
--- NOTE | 2020-01-23 09:38 | NUR ---
RESTING IN BED, MEDICATED THIS AM FOR PAIN, DRESSING TO ABD DRY AND INTACT, COLOSTOMY INTACT, CONT TO MONITOR
--- NOTE | 2020-01-23 10:00 | NUR ---
DRESSINGS CHANGED AND COLOSTOMY TO ABD, ANNETTE WELL, NO S/S OF INFECTION
[2020-01-23 11:16] VITALS: Ht 142.2 cm; Wt 39.9 kg
[2020-01-23 12:19] VITALS: BP 124/84
--- NOTE | 2020-01-23 12:38 | MORECARE ---
CASE MANAGEMENT DISCHARGE SUMMARY PATIENT: DIAMOND VALLE UNIT: [id number] ADM DATE: 01/19/20 AGE: 54 : 61 SEX: F ROOM/BED: D.2208 AUTHOR: MARCDOC PHYSICIAN: REFERRING PHYSICIAN: OSITO KEBEDE MD DATE OF SERVICE: 01/23/20 Discharge Plan Patient Name: DIAMOND VALLE Facility: [facility]:[place] : 1965 Planned Disposition: Home with Hospice Anticipated Discharge Date: Discharge Date: Expected LOS: Initial Reviewer: [id number] Initial Review Date: 01/19/2020 Generated: 01/23/20 1:37 pm Comments DCP- Discharge Planning Updated by [email or web address]: Susi Leo on 01/21/20 2:[address] PATIENTS SON HILLARY [phone] DCP- Discharge Planning Updated by [id number]: Stefanie Armstrong on 01/20/20 4:[address] CM attempted to visit with patient regarding Hospice, but she is confused and restless. Attempted to contact patient's emergency contact: Gwen Valle (sister) [phone] and a VM was left, with CM contact and request to speak about patient. Contacted [facility] Liason, Amilcar Price @[phone], regarding patient's standing with Hospice. per Amilcar, the son has signed a revocation for hospice, when the patient came to the hospital. The patient's son is Khoi @[phone]. CM attempted to reach Khoi, but did not have the correct telephone number. CM will attempt to reach patient's sister 01/20. DCP- Discharge Planning Updated by [email or web address]: Stefanie Armstrong on 01/20/20 3:[address] CM contacted [facility] Liason, Amilcar Price @[phone], regarding patient status and other possible emergency contact. Await CB. Patient is confused. She is current with [facility]. CM attempted to reach the patient's emergency contact: Gwen Valle #[phone], but was only able to leave a message. Coverage Notice Reviewer: [id number] - Susi Leo Notice Issued Date-Time: 01/23/2020 12:30 Notice Type: IM Discharge Notice Notice Delivered To: Patient Relationship to Patient: Hydroelectric Plant Operator Name: Delivery Method: - Rylee Days: Prior Verbal Notification: Recipient Understood Notice: Recipient Signature: Med Rec Note Co-signed by Attending: Coverage Notice Comment: Patient Name: DIAMOND VALLE Page [phone] at 1238 All edits/amendments must be made on the electronic document DICTATION DATE: 01/23/20 1238 SOAPING MACHINE BACK TENDER: KATHY 01/23/20 1238 RPT#: [id number] DC DATE: STATUS: ADM IN [facility] [address] [place] [address] END OF REPORT
--- NOTE | 2020-01-23 12:58 | MORECARE ---
CASE MANAGEMENT DISCHARGE SUMMARY PATIENT: DIAMOND VALLE UNIT: [id number] ADM DATE: 01/19/20 AGE: 54 : 61 SEX: F ROOM/BED: D.220 AUTHOR: JOSUE TRAN PHYSICIAN: REFERRING PHYSICIAN: OSITO KEBEDE MD DATE OF SERVICE: 01/23/20 Discharge Plan Patient Name: DIAMOND VALLE [facility] [facility] 1965 Planned Disposition: Home with Hospice Anticipated Discharge Date: Discharge Date: Expected LOS: Initial Reviewer: [id number] Initial Review Date: 01/19/2020 Generated: 01/23/20 1:57 pm Comments DCP- Discharge Planning Updated by [email or web address]: Susi Leo on 01/23/20 11:[address] Patient Name: DIAMOND VALLE Admission Status: ER Accout number: [id number] Admission Date: 01-19-2020 : 1965 Admission Diagnosis:PNEUMONIA, UNSPECIFIED ORGANISM Attending: GROVER KEBEDE Current LOS: 4 Anticipated DC Date: Planned Disposition: Home with Hospice Primary Insurance: [facility] MEDICARE SOLUTIONS Discharge Planning Comments: CM met with patient at discharging home on hospice. She has signed the CHAVA for [facility] ( she was current with them) IMM served and explained. She stated that she will need her supplies & would like someone who speaks like she does. She also states that she needs to be transferred via EMS. Her family will be home to help her. Wind Farm Operations Manager: Susi Leo DCP- Discharge Planning Updated by [id number]: Susi Leo on 01/21/20 2:[address] PATIENTS ALICIA THORNTON [phone] DCP- Discharge Planning Updated by [email or web address]: Stefanie Armstrong on 01/20/20 4:[address] CM attempted to visit with patient regarding Hospice, but she is confused and restless. Attempted to contact patient's emergency contact: Gwen Valle (sister) [phone] and a VM was left, with CM contact and request to speak about patient. Contacted [facility] Liason, Amilcar Price @[phone], regarding patient's standing with Hospice. per Amilcar, the son has signed a revocation for hospice, when the patient came to the hospital. The patient's son is Khoi @[phone]. CM attempted to reach Khoi, but did not have the correct telephone number. CM will attempt to reach patient's sister 01/20. DCP- Discharge Planning Updated by [email or web address]: Stefanie Armstrong on 01/20/20 3:[address] CM contacted [facility] Liason, Amilcar Price @[phone], regarding patient status and other possible emergency contact. Await CB. Patient is confused. She is current with [facility]. CM attempted to reach the patient's emergency contact: Gwen Valle #[phone], but was only able to leave a message. Coverage Notice Reviewer: [email or web address] Christopher Leo Notice Issued Date-Time: 01/23/2020 12:30 Notice Type: IM Discharge Notice Notice Delivered To: Patient Relationship to Patient: Resaw Machine Operator Name: Delivery Method: HAND - Hand Delivered Rylee Days: Prior Verbal Notification: Recipient Understood Notice: Yes Recipient Signature: Yes Med Rec Note Co-signed by Attending: Coverage Notice Comment: imm served Reviewer: [id number] Leo Notice Issued Date-Time: 01/23/2020 12:30 Notice Type: Patient Choice Letter Notice Delivered To: Patient Relationship to Patient: Resaw Machine Operator Name: Delivery Method: HAND - Hand Delivered Rylee Days: Prior Verbal Notification: Recipient Understood Notice: Yes Recipient Signature: Yes Med Rec Note Co-signed by Attending: Coverage Notice Comment: [facility] Last DP export: 01/23/20 11:38 a Patient Name: DIAMOND VALLE Page [id number] at 1258 All edits/amendments must be made on the electronic document DICTATION DATE: 01/23/20 1257 DESIGN INSERTER: KATHY 01/23/20 1257 RPT#: [id number] DC DATE: STATUS: ADM IN [facility] [address] [place] [address] END OF REPORT
--- NOTE | 2020-01-23 13:05 | MORECARE ---
CASE MANAGEMENT DISCHARGE SUMMARY PATIENT: DIAMOND VALLE UNIT: [id number] ADM DATE: 01/19/20 AGE: 54 : 61 SEX: F ROOM/BED: D.2207 AUTHOR: JOSUE TRAN PHYSICIAN: REFERRING PHYSICIAN: OSITO KEBEDE MD DATE OF SERVICE: 01/23/20 Discharge Plan Patient Name: DIAMOND VALLE [facility] : 1965 Planned Disposition: Home with Hospice Anticipated Discharge Date: Discharge Date: Expected LOS: Initial Reviewer: [email or web address] Initial Review Date: 01/19/2020 Generated: 01/23/20 2:04 pm Comments DCP- Discharge Planning Updated by [email or web address]: Susi Leo on 01/23/20 11:[address] Patient Name: DIAMOND VALLE Admission Status: ER Accout number: [id number] Admission Date: 01-19-2020 : 1965 Admission Diagnosis:PNEUMONIA, UNSPECIFIED ORGANISM Attending: GROVER KEBEDE Current LOS: 4 Anticipated DC Date: Planned Disposition: Home with Hospice Primary Insurance: [facility] MEDICARE SOLUTIONS Discharge Planning Comments: CM met with patient at discharging home on hospice. She has signed the [facility]AVA for [facility] ( she was current with them) IMM served and explained. She stated that she will need her supplies & would like someone who speaks like she does. She also states that she needs to be transferred via EMS. Her family will be home to help her. Pencil Sorter: Susi Leo DCP- Discharge Planning Updated by [email or web address]: Susi Leo on 01/21/20 2:[address] PATIENTS ALICIA THORNTON [phone] DCP- Discharge Planning Updated by [id number]: Stefanie Armstrong on 01/20/20 4:[address] CM attempted to visit with patient regarding Hospice, but she is confused and restless. Attempted to contact patient's emergency contact: Gwen Valle (sister) [phone] and a VM was left, with CM contact and request to speak about patient. Contacted [facility] Liason, Amilcar Price @[phone], regarding patient's standing with Hospice. per Amilcar, the son has signed a revocation for hospice, when the patient came to the hospital. The patient's son is Khoi @[phone]. CM attempted to reach Khoi, but did not have the correct telephone number. CM will attempt to reach patient's sister 01/20. DCP- Discharge Planning Updated by [id number]: Stefanie Armstrong on 01/20/20 3:[address] CM contacted [facility] Liason, Amilcar Price @[phone], regarding patient status and other possible emergency contact. Await CB. Patient is confused. She is current with [facility]. CM attempted to reach the patient's emergency contact: Gwen Valle #[phone], but was only able to leave a message. Coverage Notice Reviewer: [id number] Christopher Leo Notice Issued Date-Time: 01/23/2020 12:30 Notice Type: IM Discharge Notice Notice Delivered To: Patient Relationship to Patient: Park Activities Coordinator Name: Delivery Method: HAND - Hand Delivered Rylee Days: Prior Verbal Notification: Recipient Understood Notice: Yes Recipient Signature: Yes Med Rec Note Co-signed by Attending: Coverage Notice Comment: imm served Reviewer: [id number] Leo Notice Issued Date-Time: 01/23/2020 12:30 Notice Type: Patient Choice Letter Notice Delivered To: Patient Relationship to Patient: Park Activities Coordinator Name: Delivery Method: HAND - Hand Delivered Rylee Days: Prior Verbal Notification: Recipient Understood Notice: Yes Recipient Signature: Yes Med Rec Note Co-signed by Attending: Coverage Notice Comment: [facility] Last DP export: 01/23/20 11:58 a Patient Name: DIAMOND VALLE Page [phone] at 1305 All edits/amendments must be made on the electronic document DICTATION DATE: 01/23/20 1304 TERRAZZO JOURNEYMAN: KATHY 01/23/20 1304 RPT#: [id number] DC DATE: STATUS: ADM IN [facility] [address] [place] [address] END OF REPORT
[2020-01-23] MEDS ORDERED: TESSALON PERLE100 MG PO (13:39)
[2020-01-23] MEDS ORDERED: MUCINEX600 MG PO (13:39)
[2020-01-23] MEDS ORDERED: CHRONULAC30 ML PO (13:39)
[2020-01-23] MEDS ORDERED: ZITHROMAX500 MG PO (13:40)
[2020-01-23] MEDS ORDERED: OMNICEF300 MG PO (13:40)
--- NOTE | 2020-01-23 15:29 | MORECARE ---
CASE MANAGEMENT DISCHARGE SUMMARY PATIENT: DIAMOND VALLE UNIT: [id number] ADM DATE: 01/19/20 AGE: 54 : 61 SEX: F ROOM/BED: D.2201 AUTHOR: MARC,DOC PHYSICIAN: REFERRING PHYSICIAN: OSITO KEBEDE MD DATE OF SERVICE: 01/23/20 Discharge Plan Patient Name: DIAMOND VALLE Facility: [facility]:[place] : 1965 Planned Disposition: Home with Hospice Anticipated Discharge Date: Discharge Date: Expected LOS: Initial Reviewer: [id number] Initial Review Date: 01/19/2020 Generated: 01/23/20 4:29 pm Comments DCP- Discharge Planning Updated by [id number]: Susi Leo on 01/23/20 2:[address] GARCIA WITH [facility] HERE TO SEE PATIENT DCP- Discharge Planning Updated by [id number]: Susi Leo on 01/23/20 11:[address] Patient Name: DIAMOND VALLE Admission Status: ER Accout number: [id number] Admission Date: 01-19-2020 : 1965 Admission Diagnosis:PNEUMONIA, UNSPECIFIED ORGANISM Attending: GROVER KEBEDE Current LOS: 4 Anticipated DC Date: Planned Disposition: Home with Hospice Primary Insurance: [facility] MEDICARE SOLUTIONS Discharge Planning Comments: CM met with patient at discharging home on hospice. She has signed the CHAVA for [facility] ( she was current with them) IMM served and explained. She stated that she will need her supplies & would like someone who speaks like she does. She also states that she needs to be transferred via EMS. Her family will be home to help her. Mold Parter: Susi Leo DCP- Discharge Planning Updated by [id number]: Susi Leo on 01/21/20 2:[address] PATIENTS ALICIA THORNTON [phone] DCP- Discharge Planning Updated by [id number]: Stefanie Armstrong on 01/20/20 4:[address] CM attempted to visit with patient regarding Hospice, but she is confused and restless. Attempted to contact patient's emergency contact: Gwen Valle (sister) [phone] and a VM was left, with CM contact and request to speak about patient. Contacted [facility] LiasonAmilcar @[phone], regarding patient's standing with Hospice. per Amilcar, the son has signed a revocation for hospice, when the patient came to the hospital. The patient's son is Khoi @[phone]. CM attempted to reach Khoi, but did not have the correct telephone number. CM will attempt to reach patient's sister 01/20. DCP- Discharge Planning Updated by [id number]: Stefanie Armstrong on 01/20/20 3:[address] CM contacted [facility] Liason, Amilcar Price @[phone], regarding patient status and other possible emergency contact. Await CB. Patient is confused. She is current with [facility]. CM attempted to reach the patient's emergency contact: Gwen Anthony #[phone], but was only able to leave a message. Coverage Notice Reviewer: [id number] Christopher Leo Notice Issued Date-Time: 01/23/2020 12:30 Notice Type: IM Discharge Notice Notice Delivered To: Patient Relationship to Patient: Insurance Agency Owner Name: Delivery Method: HAND - Hand Delivered Rylee Days: Prior Verbal Notification: Recipient Understood Notice: Yes Recipient Signature: Yes Med Rec Note Co-signed by Attending: Coverage Notice Comment: imm served Reviewer: [id number] Christopher Leo Notice Issued Date-Time: 01/23/2020 12:30 Notice Type: Patient Choice Letter Notice Delivered To: Patient Relationship to Patient: Insurance Agency Owner Name: Delivery Method: HAND - Hand Delivered Rylee Days: Prior Verbal Notification: Recipient Understood Notice: Yes Recipient Signature: Yes Med Rec Note Co-signed by Attending: Coverage Notice Comment: [facility] Last DP export: 01/23/20 12:05 p Patient Name: DIAMOND VALLE Page 88940 at 1529 All edits/amendments must be made on the electronic document DICTATION DATE: 01/23/201528 ACQUISITION CONSULTANT: KATHY 01/23/201528 RPT#: [id number] DC DATE: STATUS: ADM IN [facility] [address] [place] [address] END OF REPORT
[2020-01-23 16:44] VITALS: BP 143/95
[2020-01-23 20:00] VITALS: BP 117/76
--- NOTE | 2020-01-23 20:30 | NUR ---
IRRITABLE. DROWSY. AWAKENED FOR ASSESSMENT. YELLED AT STAFF TO TURN THE LIGHT OFF. COLOSTOMY FULL OF GREEN LIQ AT THIS TIME AND EMPTIED PER STAFF. DENIES PAIN. DRSG NOTED TO LT BUTTOCK. ABD DRSG INTACT. NS WITH 40 MEQ KCL INFUSING IN RT WRIST. VISITOR AT BEDSIDE. BED ALARM ON FOR PT SAFETY. SR ELEVATED X2. CL IN REACH.
--- NOTE | 2020-01-23 22:30 | NUR ---
REFUSED KCL PO THAT WAS OFFERED PER [facility].
[2020-01-24] VITALS: BP 132/73
--- NOTE | 2020-01-24 00:57 | NUR ---
OSTOMY APPLIANCE EXPLODED...SOILING ENTIRE BED AND ALL OVER PATIENT. REMOVED APPLIANCE AND ABDOMINAL DRESSING. ALL AREAS CLEANSED WITH WOUND CHIEF OF PLANNING AND PATED DRY WITH STERILE 4X4'S. NEW OSTOMY APPLIANCE APPLIED OVER PINK,MOIST STOMA. 4X4'S FOLDED AND APPLIED OVER OPEN AREAS ON CENTRAL ABDOMEN, AND COVERED WITH ABDOMINAL PADS. PT BATHED AND ALL LINENS AND GOWN CHANGED. POSITIONED FOR COMFORT.
[2020-01-24 04:00] VITALS: BP 129/87
--- NOTE | 2020-01-24 04:30 | NUR ---
REFUSED AM LAB DRAW
--- NOTE | 2020-01-24 06:00 | NUR ---
ASSISTED ONTO BEDPAN TO VOID. COLOSTOMY EMPTIED.
[2020-01-24 07:29] LABS: BASOPHILS 0.1 % (0-2); EOSINOPHILS 0.5 % (0-7); HEMATOCRIT 31.9 % (36.0-48.0); IMMATURE GRANULOCYTES 0.6 % (0-5); LYMPHOCYTES 19.5 % (15-50); MCH 32.2 pg (26.0-34.0); MCHC 31.3 g/dL (31.0-37.0); MONOCYTES 3.9 % (2-11); NEUTROPHILS 75.4 % (40-80); RBC 3.11 10x6/uL (4.00-5.40); RDW 21.4 % (11.5-14.5); WBC 10.8 10x3/uL (4.8-10.8)
--- NOTE | 2020-01-24 07:30 | NUR ---
AWAKE AND ALERT. ORIENTED X3. DRESSING TO ABDOMEN DRY AND INTACT. ASSISTED WITH BED ABAD PER STAFF. VOIDED CLEAR YELLOW URINE WITHOUT DIFFICULTY. DENIES NEEDS.
[2020-01-24 07:44] LABS: MCV 102.6 fL (80.0-100.0)
[2020-01-24 07:46] LABS: PLATELET COUNT 47 10x3/uL (130-400)
--- NOTE | 2020-01-24 07:47 | NUR ---
RECEIVED CALL FROM LAB, PT PLATELETS IS 47 TODAY, PLATELETS WERE 41 YESTERDAY. CONTINUE WITH PLAN OF CARE
[2020-01-24 07:53] LABS: % SATURATION 56 % (15-55); IRON 46 ug/dl (35-150); TOTAL IRON BIND CAPACITY 82 ug/dl (260-445)
[2020-01-24 07:54] LABS: UNSAT IRON BIND CAPACITY 36 ug/dl (150-375)
--- NOTE | 2020-01-24 08:00 | NUR ---
PT REFUSED ALL MEDS THIS MORNING EXEPT FOR PAIN MEDICATIONS AND ABX. PT STATED " IM NOT GOING TO BE HERE MUCH LONGER PLEASE JUST PAIN MEDICATION". PT IS AWAKE AND ALERT. CL IN ERACH, GAVE PT CUP OF WATER, NO OTHER NEEDS AT THIS TIME. CONTINUE WITH PLAN OF CARE
[2020-01-24 08:18] VITALS: BP 102/74
--- NOTE | 2020-01-24 08:48 | MORECARE ---
CASE MANAGEMENT DISCHARGE SUMMARY PATIENT: DIAMOND VALLE UNIT: [id number] ADM DATE: 01/19/20 AGE: 54 : 61 SEX: F ROOM/BED: D.2208 AUTHOR: MARC,DOC PHYSICIAN: REFERRING PHYSICIAN: OSITO KEBEDE MD DATE OF SERVICE: 01/24/20 Discharge Plan Patient Name: DIAMOND VALLE Facility: [facility]:[place] : 1965 Planned Disposition: Home with Hospice Anticipated Discharge Date: Discharge Date: Expected LOS: Initial Reviewer: [id number] Initial Review Date: 01/19/2020 Generated: 01/24/20 9:47 am Comments DCP- Discharge Planning Updated by [id number]: Susi Leo on 01/24/20 7:[address] LATE ENTRY 01/23/20 1630 GARCIA WITH [facility] STATED THAT THEY HAVE TO HAVE A MEETING WITH THE FAMILY TO GO OVER EXPECTIONS AND DESIRES BEFORE THEY WILL ACCEPT AGAIN THEY ARE TO MEET WITH THEM ON 01/24/20 DCP- Discharge Planning Updated by [email or web address]: Susi Leo on 01/23/20 2:[address] GARCIA WITH [facility] HERE TO SEE PATIENT DCP- Discharge Planning Updated by [id number]: Susi Leo on 01/23/20 11:[address] Patient Name: DIAMOND VALLE Admission Status: ER Accout number: [id number] Admission Date: 01-19-2020 : 1965 Admission Diagnosis:PNEUMONIA, UNSPECIFIED ORGANISM Attending: GROVER KEBEDE Current LOS: 4 Anticipated DC Date: Planned Disposition: Home with Hospice Primary Insurance: [facility] MEDICARE SOLUTIONS Discharge Planning Comments: CM met with patient at discharging home on hospice. She has signed the [facility] for [facility] ( she was current with them) IMM served and explained. She stated that she will need her supplies & would like someone who speaks like she does. She also states that she needs to be transferred via EMS. Her family will be home to help her. Bus Driver: Susi Leo DCP- Discharge Planning Updated by [id number]: Susi Leo on 01/21/20 2:[address] PATIENTS ALICIA THORNTON [phone] DCP- Discharge Planning Updated by [email or web address]: Stefanie Armstrong on 01/20/20 4:[address] CM attempted to visit with patient regarding Hospice, but she is confused and restless. Attempted to contact patient's emergency contact: Gwen Valle (sister) [phone] and a VM was left, with CM contact and request to speak about patient. Contacted [facility] Liason, Amilcar Price @[phone], regarding patient's standing with Hospice. per Amilcar, the son has signed a revocation for hospice, when the patient came to the hospital. The patient's son is Khoi @[phone]. CM attempted to reach Khoi, but did not have the correct telephone number. CM will attempt to reach patient's sister 01/20. DCP- Discharge Planning Updated by [id number]: Stefanie Armstrong on 01/20/20 3:[address] CM contacted [facility] Liason, Amilcar Price @[phone], regarding patient status and other possible emergency contact. Await CB. Patient is confused. She is current with [facility]. CM attempted to reach the patient's emergency contact: Gwen Valle #[phone], but was only able to leave a message. Coverage Notice Reviewer: [id number] Christopher Leo Notice Issued Date-Time: 01/23/2020 12:30 Notice Type: IM Discharge Notice Notice Delivered To: Patient Relationship to Patient: District Plant Superintendent Name: Delivery Method: HAND - Hand Delivered Rylee Days: Prior Verbal Notification: Recipient Understood Notice: Yes Recipient Signature: Yes Med Rec Note Co-signed by Attending: Coverage Notice Comment: imm served Reviewer: [id number] Leo Notice Issued Date-Time: 01/23/2020 12:30 Notice Type: Patient Choice Letter Notice Delivered To: Patient Relationship to Patient: District Plant Superintendent Name: Delivery Method: HAND - Hand Delivered Rylee Days: Prior Verbal Notification: Recipient Understood Notice: Yes Recipient Signature: Yes Med Rec Note Co-signed by Attending: Coverage Notice Comment: [facility] Last DP export: 01/23/20 2:29 p Patient Name: DIAMOND VALLE Page 29521 at 0848 All edits/amendments must be made on the electronic document DICTATION DATE: 01/24/20846 MAGNETIC TESTER: KATHY 01/24/20846 RPT#: [id number] DC DATE: STATUS: ADM IN [facility] [address] [place] [address] END OF REPORT
[2020-01-24 10:19] LABS: ALBUMIN 1.1 g/dL (3.4-5.0); ALKALINE PHOSPHATASE 272 U/L (30-120); ALT (SGPT) 34 U/L (10-68); BILIRUBIN - TOTAL 1.06 mg/dL (0.2-1.3); CALC OSMOLALITY 266 mosm/kg (275-300); CARBON DIOXIDE 21.7 mmol/L (21.0-32.0); CHLORIDE - SERUM 109 mmol/L (98-107); CREATININE - SERUM 0.6 mg/dL (0.6-1.3); FERRITIN 576 ng/mL (3-244); GLUCOSE 83 mg/dL (74-106); MAGNESIUM - SERUM 1.8 mg/dL (1.8-2.4); POTASSIUM - SERUM 5.2 mmol/L (3.5-5.1); PROTEIN - SERUM 5.3 g/dL (6.4-8.2); SODIUM 136 mmol/L (136-145); UREA NITROGEN 2 mg/dL (7-18); eGFR NON AFRICAN AMERICAN > 90 mL/min (90-120)
[2020-01-24 10:20] LABS: CALCIUM 7.1 mg/dL (8.5-10.1)
[2020-01-24 12:34] VITALS: BP 71/48
--- NOTE | 2020-01-24 13:07 | NUR ---
Nutrition follow-up: Pt receiving a regular diet with po intake ~25-50% of meals Pt refusing most meds; wants only pain meds at this time Labs reviewed Wt: 87# Colostomy Pt to discharge with hospice soon RDN following.
--- NOTE | 2020-01-24 13:22 | NUR ---
PT LYING IN BED WITH HOB AT 30 DEGREES, PT REQUESTED PAIN MEDICATION AND STATED THAT DR HAD RESTARTED HER ANXIETY MEDICATONS ALSO AND SHE WOULD LIKE THAT. EDUCATED PT ON USE OF BOTH MEDICATIONS AT SAME TIME ESPECIALLY WITH PT BP LOW. TOLD PT MEDICATION IS TWICE A DAY, PT OPTED FOR PAIN MEDICATON INSTEAD
--- NOTE | 2020-01-24 13:51 | MORECARE ---
CASE MANAGEMENT DISCHARGE SUMMARY PATIENT: DIAMOND VALLE UNIT: [id number] ADM DATE: 01/19/20 AGE: 54 : 61 SEX: F ROOM/BED: D.2208 AUTHOR: MARC,DOC PHYSICIAN: REFERRING PHYSICIAN: OSITO KEBEDE MD DATE OF SERVICE: 01/24/20 Discharge Plan Patient Name: DIAMOND VALLE Facility: [facility]:[place] : 1965 Planned Disposition: Home with Hospice Anticipated Discharge Date: Discharge Date: Expected LOS: Initial Reviewer: [id number] Initial Review Date: 01/19/2020 Generated: 01/24/20 2:50 pm Comments DCP- Discharge Planning Updated by [email or web address]: Susi Leo on 01/24/20 7:[address] LATE ENTRY 01/23/20 1630 GARCIA WITH [facility] STATED THAT THEY HAVE TO HAVE A MEETING WITH THE FAMILY TO GO OVER EXPECTIONS AND DESIRES BEFORE THEY WILL ACCEPT AGAIN THEY ARE TO MEET WITH THEM ON 01/24/20 DCP- Discharge Planning Updated by [id number]: Susi Leo on 01/23/20 2:[address] GARCIA WITH [facility] HERE TO SEE PATIENT DCP- Discharge Planning Updated by [email or web address]: Susi Leo on 01/23/20 11:[address] Patient Name: DIAMOND VALLE Admission Status: ER Accout number: [id number] Admission Date: 01-19-2020 : 1965 Admission Diagnosis:PNEUMONIA, UNSPECIFIED ORGANISM Attending: GROVER KEBEDE Current LOS: 4 Anticipated DC Date: Planned Disposition: Home with Hospice Primary Insurance: [facility] MEDICARE SOLUTIONS Discharge Planning Comments: CM met with patient at discharging home on hospice. She has signed the [facility] for [facility] ( she was current with them) IMM served and explained. She stated that she will need her supplies & would like someone who speaks like she does. She also states that she needs to be transferred via EMS. Her family will be home to help her. Insurance Risk Surveyor: Susi Leo DCP- Discharge Planning Updated by [id number]: Susi Leo on 01/21/20 2:[address] PATIENTS ALICIA THORNTON [phone] DCP- Discharge Planning Updated by [id number]: Stefanie Armstrong on 01/20/20 4:[address] CM attempted to visit with patient regarding Hospice, but she is confused and restless. Attempted to contact patient's emergency contact: Gwen Valle (sister) [phone] and a VM was left, with CM contact and request to speak about patient. Contacted [facility] Liason, Amilcar Price @[phone], regarding patient's standing with Hospice. per Amilcar, the son has signed a revocation for hospice, when the patient came to the hospital. The patient's son is Khoi @[phone]. CM attempted to reach Khoi, but did not have the correct telephone number. CM will attempt to reach patient's sister 01/20. DCP- Discharge Planning Updated by [id number]: Stefanie Armstrong on 01/20/20 3:[address] CM contacted [facility]ason, Amilcar Price @[phone], regarding patient status and other possible emergency contact. Await CB. Patient is confused. She is current with [facility]. CM attempted to reach the patient's emergency contact: Gwen Valle #[phone], but was only able to leave a message. External Providers External Provider: [facility] Next Contact Date: Service Request Date: Service Type: Resolution: Reviewer: Comments: Coverage Notice Reviewer: [id number] Christopher Leo Notice Issued Date-Time: 01/23/2020 12:30 Notice Type: IM Discharge Notice Notice Delivered To: Patient Relationship to Patient: Executive Administrative Assistant Name: Delivery Method: HAND - Hand Delivered Rylee Days: Prior Verbal Notification: Recipient Understood Notice: Yes Recipient Signature: Yes Med Rec Note Co-signed by Attending: Coverage Notice Comment: imm served Reviewer: [id number] Christopher Leo Notice Issued Date-Time: 01/23/2020 12:30 Notice Type: Patient Choice Letter Notice Delivered To: Patient Relationship to Patient: Executive Administrative Assistant Name: Delivery Method: HAND - Hand Delivered Rylee Days: Prior Verbal Notification: Recipient Understood Notice: Yes Recipient Signature: Yes Med Rec Note Co-signed by Attending: Coverage Notice Comment: [facility] Last DP export: 01/24/20 7:48 am Patient Name: DIAMOND VALLE Page 20090 at 1351 All edits/amendments must be made on the electronic document DICTATION DATE: 01/24/20 1350 FINANCIAL RISK MANAGER: KATHY 01/24/20 1350 RPT#: [id number] DC DATE: STATUS: ADM IN [facility] [address] [place] [address] END OF REPORT
--- NOTE | 2020-01-24 13:59 | MORECARE ---
CASE MANAGEMENT DISCHARGE SUMMARY PATIENT: DIAMOND VALLE UNIT: [id number] ADM DATE: 01/19/20 AGE: 54 : 61 SEX: F ROOM/BED: D.2208 AUTHOR: MARC,DOC PHYSICIAN: REFERRING PHYSICIAN: OSITO KEBEDE MD DATE OF SERVICE: 01/24/20 Discharge Plan Patient Name: DIAMOND VALLE Facility: [facility]:[place] : 1965 Planned Disposition: Home with Hospice Anticipated Discharge Date: Discharge Date: Expected LOS: Initial Reviewer: [id number] Initial Review Date: 01/19/2020 Generated: 01/24/20 2:59 pm Comments DCP- Discharge Planning Updated by [email or web address]: Susi Leo on 01/24/20 12:[address] IVON MAC WITH [facility] CALLED AND STATED THAT THEY WILL ACCEPT THE PATIENT BACK AND ADMIT HER AT HOME. SHE WILL BE DISCHARGED VIA EMS. I HAVE FAXED ALL CLINICALS TO IVON DCP- Discharge Planning Updated by [id number]: Susi Leo on 01/24/20 7:[address] LATE ENTRY 01/23/20 1630 GARCIA WITH [facility] STATED THAT THEY HAVE TO HAVE A MEETING WITH THE FAMILY TO GO OVER EXPECTIONS AND DESIRES BEFORE THEY WILL ACCEPT AGAIN THEY ARE TO MEET WITH THEM ON 01/24/20 DCP- Discharge Planning Updated by [id number]: Susi Leo on 01/23/20 2:[address] GARCIA WITH [facility] HERE TO SEE PATIENT DCP- Discharge Planning Updated by [id number]: Susi Leo on 01/23/20 11:[address] Patient Name: DIAMOND VALLE Admission Status: ER Accout number: [id number] Admission Date: 01-19-2020 : 1965 Admission Diagnosis:PNEUMONIA, UNSPECIFIED ORGANISM Attending: GROVER KEBEDE Current LOS: 4 Anticipated DC Date: Planned Disposition: Home with Hospice Primary Insurance: [facility] MEDICARE SOLUTIONS Discharge Planning Comments: CM met with patient at discharging home on hospice. She has signed the [facility] for [facility] ( she was current with them) IMM served and explained. She stated that she will need her supplies & would like someone who speaks like she does. She also states that she needs to be transferred via EMS. Her family will be home to help her. Duct Maker: Susi Leo DCP- Discharge Planning Updated by [id number]: Susi Leo on 01/21/20 2:[address] PATIENTS SON HILLARY [phone] DCP- Discharge Planning Updated by [email or web address]: Stefanie Armstrong on 01/20/20 4:[address] CM attempted to visit with patient regarding Hospice, but she is confused and restless. Attempted to contact patient's emergency contact: Gwen Valle (sister) [phone] and a VM was left, with CM contact and request to speak about patient. Contacted [facility], Amilcar Price @[phone], regarding patient's standing with Hospice. per Amilcar, the son has signed a revocation for hospice, when the patient came to the hospital. The patient's son is Khoi @[phone]. CM attempted to reach Khoi, but did not have the correct telephone number. CM will attempt to reach patient's sister 01/20. DCP- Discharge Planning Updated by [id number]: Stefaniebrenda Armstrong on 01/20/20 3:[address] CM contacted [facility], Amilcar Price @[phone], regarding patient status and other possible emergency contact. Await CB. Patient is confused. She is current with [facility]. CM attempted to reach the patient's emergency contact: Gwen Valle #[phone], but was only able to leave a message. Coverage Notice Reviewer: [id number] Christopher Leo Notice Issued Date-Time: 01/23/2020 12:30 Notice Type: IM Discharge Notice Notice Delivered To: Patient Relationship to Patient: Overweaver Name: Delivery Method: HAND - Hand Delivered Rylee Days: Prior Verbal Notification: Recipient Understood Notice: Yes Recipient Signature: Yes Med Rec Note Co-signed by Attending: Coverage Notice Comment: imm served Reviewer: [id number] Christopher Leo Notice Issued Date-Time: 01/23/2020 12:30 Notice Type: Patient Choice Letter Notice Delivered To: Patient Relationship to Patient: Overweaver Name: Delivery Method: HAND - Hand Delivered Rylee Days: Prior Verbal Notification: Recipient Understood Notice: Yes Recipient Signature: Yes Med Rec Note Co-signed by Attending: Coverage Notice Comment: maldonado ortega Last DP export: 01/24/20 12:51 pm Patient Name: DIAMOND VALLE Page 20500 at 1359 All edits/amendments must be made on the electronic document DICTATION DATE: 01/24/20 1352 HHAS: KATHY 01/24/20 1356 RPT#: [id number] DC DATE: STATUS: ADM IN [facility] [address] [place] [address] END OF REPORT
--- NOTE | 2020-01-24 14:47 | NUR ---
PT PICKED UP BY EMS, WENT OVER DC PAPERWORK WIOTH PT AND OBTAINED SIGNATURES, IV IN RT WRIST REMOVED CATHETER INTACT. NO OTHER NEEDS SPOKE TO PT SISTER
--- NOTE | 2020-01-25 09:07 | MORECARE ---
CASE MANAGEMENT DISCHARGE SUMMARY PATIENT: DIAMOND VALLE UNIT: [id number] ADM DATE: 01/19/20 AGE: 54 : 61 SEX: F ROOM/BED: D.2208 AUTHOR: MARC,DOC PHYSICIAN: REFERRING PHYSICIAN: OSITO KEBEDE MD DATE OF SERVICE: 01/25/20 Discharge Plan Patient Name: DIAMOND VALLE Facility: [facility]:[place] : 1965 Planned Disposition: Home with Hospice Anticipated Discharge Date: Discharge Date: 01/24/2020 Expected LOS: Initial Reviewer: [id number] Initial Review Date: 01/19/2020 Generated: 01/25/20 10:06 am Comments DCP- Discharge Planning Updated by [id number]: Susi Leo on 01/24/20 12:[address] IVON MAC WITH [facility] CALLED AND STATED THAT THEY WILL ACCEPT THE PATIENT BACK AND ADMIT HER AT HOME. SHE WILL BE DISCHARGED VIA EMS. I HAVE FAXED ALL CLINICALS TO IVON DCP- Discharge Planning Updated by [email or web address]: Susi Leo on 01/24/20 7:[address] LATE ENTRY 01/23/20 1630 GARCIA WITH [facility] STATED THAT THEY HAVE TO HAVE A MEETING WITH THE FAMILY TO GO OVER EXPECTIONS AND DESIRES BEFORE THEY WILL ACCEPT AGAIN THEY ARE TO MEET WITH THEM ON 01/24/20 DCP- Discharge Planning Updated by [email or web address]: Susi Leo on 01/23/20 2:[address] GARCIA WITH [facility] HERE TO SEE PATIENT DCP- Discharge Planning Updated by [id number]: Susi Leo on 01/23/20 11:[address] Patient Name: DIAMOND VALLE Admission Status: ER Accout number: [id number] Admission Date: 01-19-2020 : 1965 Admission Diagnosis:PNEUMONIA, UNSPECIFIED ORGANISM Attending: GROVER KEBEDE Current LOS: 4 Anticipated DC Date: Planned Disposition: Home with Hospice Primary Insurance: [facility] MEDICARE SOLUTIONS Discharge Planning Comments: CM met with patient at discharging home on hospice. She has signed the [facility] for [facility] ( she was current with them) IMM served and explained. She stated that she will need her supplies & would like someone who speaks like she does. She also states that she needs to be transferred via EMS. Her family will be home to help her. Caustic Mixer: Susi Leo DCP- Discharge Planning Updated by [id number]: Susi Leo on 01/21/20 2:[address] PATIENTS SON HILLARY [phone] DCP- Discharge Planning Updated by [id number]: Stefaniebrenda Armstrong on 01/20/20 4:[address] CM attempted to visit with patient regarding Hospice, but she is confused and restless. Attempted to contact patient's emergency contact: Gwen Valle (sister) [phone] and a VM was left, with CM contact and request to speak about patient. Contacted [facility], Amilcar Price @[phone], regarding patient's standing with Hospice. per Amilcar, the son has signed a revocation for hospice, when the patient came to the hospital. The patient's son is Khoi @[phone]. CM attempted to reach Khoi, but did not have the correct telephone number. CM will attempt to reach patient's sister 01/20. DCP- Discharge Planning Updated by [id number]: Stefanie Patti on 01/20/20 3:[address] CM contacted [facility], Amilcar Price @[phone], regarding patient status and other possible emergency contact. Await CB. Patient is confused. She is current with [facility]. CM attempted to reach the patient's emergency contact: Gwen Valle #[phone], but was only able to leave a message. Coverage Notice Reviewer: [id number] Christopher Leo Notice Issued Date-Time: 01/23/2020 12:30 Notice Type: IM Discharge Notice Notice Delivered To: Patient Relationship to Patient: Spindle Setter Name: Delivery Method: HAND - Hand Delivered Rylee Days: Prior Verbal Notification: Recipient Understood Notice: Yes Recipient Signature: Yes Med Rec Note Co-signed by Attending: Coverage Notice Comment: imm served Reviewer: [id number] Christopher Leo Notice Issued Date-Time: 01/23/2020 12:30 Notice Type: Patient Choice Letter Notice Delivered To: Patient Relationship to Patient: Spindle Setter Name: Delivery Method: HAND - Hand Delivered Rylee Days: Prior Verbal Notification: Recipient Understood Notice: Yes Recipient Signature: Yes Med Rec Note Co-signed by Attending: Coverage Notice Comment: maldonado ortega Last DP export: 01/24/20 12:59 pm Patient Name: DIAMOND VALLE Page 81873 at 0907 All edits/amendments must be made on the electronic document DICTATION DATE: 01/25/20905 THERAPY MANAGER: KATHY 01/25/20905 RPT#: [id number] DC DATE:01/24/20 STATUS: DIS IN [facility] [address] [place] [address] END OF REPORT
== END 2020-01-24 14:49 | disposition home health service (06) | DRG 374 ==
LOC: D.ER 19:07 → D.MS 21:28
PROVIDERS: Family Medicine; ADMIT Emergency Medicine; ATTEND Emergency Medicine
DX: C18.9 Malignant neoplasm of colon, unspecified (principal); J18.9 Pneumonia, unspecified organism; G93.41 Metabolic encephalopathy; D65 Disseminated intravascular coagulation [defibrination syndrome]; K63.2 Fistula of intestine; E87.1 Hypo-osmolality and hyponatremia; E46 Unspecified protein-calorie malnutrition; E83.42 Hypomagnesemia; D53.9 Nutritional anemia, unspecified; K76.0 Fatty (change of) liver, not elsewhere classified; K57.90 Diverticulosis of intestine, part unspecified, without perforation or abscess without bleeding; K72.90 Hepatic failure, unspecified without coma; Z86.73 Personal history of transient ischemic attack (TIA), and cerebral infarction without residual deficits; Z68.20 Body mass index [BMI] 20.0-20.9, adult; Z66 Do not resuscitate